=== PATIENT | female | born 1925 | race Caucasian/White ===

== ENCOUNTER 2016-06-13 17:50 | Observation (INO) | payer MEDICARE ==
--- NOTE | 2016-06-13 18:13 | ERPHSYRPT ---
- History of Present Illness Historian: EMS, [facility] records Patient Subjective Stated Complaint: NH AND EMS REPORT PATIENT HAVING LOWER ABD PAIN FOR TWO DAYS. ALSO HAVING INCREASED CONFUSION. Triage Nursing Assessment: TO ROOM PER EMS COT. SKIN W/D, COLOR NORMAL, RESP NONLABORED. MOIST COUGH NOTED. ABD SOFT, TENDER IN LOWER ABD. NORMAL BOWEL SOUNDS. PATIENT ORIENTED ONLY TO NAME. Timing/Duration: day(s) (2) Activities at Onset: none Quality: aching Abdominal Pain Onset Location: RLQ, LLQ Pain Radiation: no radiation Severity of Pain-Max: mild Severity of Pain-Current: mild Modifying Factors: Improves With: nothing Associated Symptoms: denies symptoms Previous symptoms: no prior history Hx Tetanus, Diphtheria Vaccination/Date Given: No Hx Influenza Vaccination/Date Given: Yes (2015) Hx Pneumococcal Vaccination/Date Given: Yes (2015) Immunizations Up to Date: No <SYD BECERRA - Last Filed: 06/13/16 18:08> <CAROL PALACIOS - Last Filed: 06/13/16 22:32> - History of Present Illness Time Seen by Provider: 06/13/16 18:08 Physician History: The patient is an 89-year-old female brought in by ambulance from a [facility] where she said 2 days of lower abdominal pain. Patient is a poor historian. [facility] also complains that she is more confused than usual. The patient has been on Flagyl and Levaquin for 3 days for a GI infection and UTI. There is no vomiting or diarrhea at this time. (SYD BECERRA) Allergies/Adverse Reactions: erythromycin base [Erythromycin Base] Allergy (Unknown, Verified 06/13/16 18:06) hydrocodone [Hydrocodone] Allergy (Unknown, Verified 06/13/16 18:06) meperidine HCl [From Demerol] Allergy (Unknown, Verified 06/13/16 18:06) quinine Allergy (Verified 06/13/16 18:06) Home Medications: Furosemide 40 mg [Lasix 40 MG] 40 mg PO DAILY 07/09/12 [History] Potassium Chloride 10 Meq Tab* [Klor Con 10 MEQ] 10 meq PO DAILY 07/09/12 [ History] Esomeprazole Magnesium [Nexium] 40 mg PO DAILY 12/30/13 [History] Aspirin [Aspirin EC] 81 mg PO DAILY 01/25/14 [History] Pregabalin [Lyrica] 75 mg PO BID 01/25/14 [History] Cetirizine HCl [Zyrtec] 10 mg PO DAILY 06/07/16 [History] Levofloxacin [Levaquin] 500 mg PO 06/13/16 [History] Lorazepam 0.5 mg [Ativan 0.5 MG] 0.5 mg PO Q8HPRN PRN 06/13/16 [History] Metronidazole 500 mg [Flagyl 500 MG] 500 mg PO TID 06/13/16 [History] Omeprazole 20 MG [Prilosec 20 mg] 20 mg PO DAILY 06/13/16 [History] - Review of Systems Constitutional: No Fever, No Chills Eyes: No Symptoms Ears, Nose, & Throat: No Symptoms Respiratory: No Cough, No Dyspnea Cardiac: No Chest Pain, No Edema, No Syncope Abdominal/Gastrointestinal: Abdominal Pain Genitourinary Symptoms: No Dysuria Musculoskeletal: No Back Pain, No Neck Pain Skin: No Rash Neurological: No Dizziness, No Focal Weakness, No Sensory Changes Psychological: No Symptoms Endocrine: No Symptoms Hematologic/Lymphatic: No Symptoms Immunological/Allergic: No Symptoms All Other Systems: Reviewed and Negative <SYD BECERRA - Last Filed: 06/13/16 18:08> - Past Medical History Pertinent Past Medical History: Yes Neurological History: Peripheral Neuropathy ENT History: Cataracts Cardiac History: Congestive Heart Failure, Coronary Artery Disease, Hypertension Respiratory History: CHF, COPD, Pneumonia Endocrine Medical History: No Pertinent History Musculoskeletal History: Osteoarthritis GI Medical History: Hemorrhoids, Hernia History: No Pertinent History Psycho-Social History: Anxiety, Depression Female Reproductive Disorders: No Pertinent History Other Medical History: PELVIC AND NECK FRACTURE - Past Surgical History Past Surgical History: Yes Neuro Surgical History: No Pertinent History Cardiac: No Pertinent History Respiratory: No Pertinent History Gastrointestinal: Cholecystectomy, Hernia Repair Genitourinary: No Pertinent History Musculoskeletal: Joint Replacement, Orthopedic Surgery Female Surgical History: No Pertinent History - Social History Smoking Status: Former smoker Exposure to second hand smoke: No Drug Use: none Patient Lives Alone: No - Female History Hx Now: No <SYD BECERRA - Last Filed: 06/13/16 18:08> - Physical Exam General Appearance: no apparent distress, alert Eye Exam: PERRL/EOMI, eyes nml inspection Ears, Nose, Throat Exam: normal ENT inspection, pharynx normal, moist mucous membranes Neck Exam: normal inspection, non-tender, supple, full range of motion Respiratory Exam: normal breath sounds, lungs clear, No respiratory distress Cardiovascular Exam: regular rate/rhythm, normal heart sounds Gastrointestinal/Abdomen Exam: tenderness (RLQ and LLQ) Pelvic Exam: not done Rectal Exam: not done Back Exam: normal inspection, normal range of motion, No CVA tenderness, No vertebral tenderness Extremity Exam: normal inspection, normal range of motion, pelvis stable Neurologic Exam: confusion (mild) Skin Exam: normal color, warm, dry SpO2 Interpretation: normal SpO2: 96 Oxygen Delivery: Room Air <SYD BECERRA - Last Filed: 06/13/16 18:08> <SYD BECERRA - Last Filed: 06/13/16 18:08> - Progress Counseled pt/family regarding: lab results, diagnosis, need for follow-up, rad results <CAROL PALACIOS - Last Filed: 06/13/16 22:32> - Progress Progress Note: 06/13/16 21:10 CT abd/pelvis: [email or web address] 9:00 PM 06/13/2016: Compared to CT 7 days ago. Study markedly limited due to extreme motion artifact. Grossly stable HH, L renal cyst, & fecal stasis. 06/13/16 22:28 Pt was initially seen per Dr Becerra. She was admitted last week for abd pain, enteritis and bowel wall thickening, and acinetobacter UTI. She is on levaquin and flagyl. Was discharged to [place]. She now has some increased lower abdominal pain and some confusion.Pt is poor historian. Atypical nonspecific symptoms. Will admit and continue levaquin and flagyl. Spoke to Dr Bran Ocampo. (CAROL PALACIOS) <SYD BECERRA - Last Filed: 06/13/16 18:08> - Departure Time of Disposition: 22:31 Departure Disposition: Observation Critical Care Time: No <CAROL PALACIOS - Last Filed: 06/13/16 22:32> - Departure Clinical Impression: Abdominal pain, Confusion Condition: Fair Referrals: ROSALIND JUAREZ MD [Primary Care Provider] -
[2016-06-13 18:32] LABS: Mean Cell Volume 80.7 fl (78-100); Mean Platelet Volume 11.9 fl (6-9.5); Platelet Count 175 K/mm3 (150-450); Red Blood Count 5.55 M/mm3 (4.1-5.4); Red Cell Distribution Width 17.6 % (11.5-14.0); White Blood Count 11.3 K/mm3 (4.0-10.5)
[2016-06-13 18:37] LABS: Mean Corpuscular Hemoglobin 25.7 pg (26-32)
[2016-06-13 19:13] LABS: ALBUMIN 2.9 g/dL (3.4-5.0); ALKALINE PHOSPHATASE 60 U/L (46-116); ANION GAP 11.3 MEQ/L (5-15); BILIRUBIN,TOTAL 0.7 mg/dL (0.2-1.0); BLOOD UREA NITROGEN 15 mg/dL (9-20); CHLORIDE 106 mEq/L (98-107); Carbon Dioxide 28.1 mEq/L (21-32); Glucose 108 MG/DL (70-110); LIPASE 61 U/L (73-393); SGOT/AST 15 U/L (15-37); SGPT/ALT 13 U/L (12-78); SODIUM 141 mEq/L (136-145); Total Protein 5.8 gm/dL (6.4-8.2)
[2016-06-13 19:27] LABS: Platelet Estimate NORMAL (NORMAL); Total Cells Counted 100
[2016-06-13 19:34] LABS: Bacteria RARE /HPF (NEGATIVE); COMPLETE URINE MICROSCOPIC? YES; Collection Type CCMS; WBC 0-2 /HPF (0-5)
[2016-06-13] MEDS ORDERED: Ativan 2 MG/1 ML VIAL IV ONE (20:59)
[2016-06-13] MEDS ORDERED: Ativan 2 MG/1 ML VIAL ONE (21:02)
[2016-06-14] MEDS: FLAGYL 500 MG IVPB 100 ML IV SCH ×5 (00:39→22:50)
--- NOTE | 2016-06-14 08:31 | XRAY ---
Indication: Short of breath. Comparison: June 07, 2016 Portable chest unchanged again hyperinflated with calcified granulomas and blunting of both costophrenic angles. No focal infiltrate, consolidation, or large effusion. Heart is not enlarged. No new/acute findings.
--- NOTE | 2016-06-14 08:37 | XRAY ---
Indication: Lower abdominal pain and confusion. Multiple contiguous axial images obtained through the abdomen and pelvis using 80 cc Isovue 370 contrast. Comparison: June 07, 2016. Study is markedly degraded by motion and respiration artifact. Grossly stable hiatal hernia, fecal stasis without obstruction, left renal cyst, epigastric postsurgical changes, previous cholecystectomy, and previous left total hip arthroplasty. No large free fluid/air. Remaining visualized liver, pancreas, spleen, adrenal glands, kidneys and bladder appear unremarkable. Stable aortoiliac calcifications without AAA. Osseous structures again demonstrates osteopenia, multilevel degenerative spondylosis, levorotoscoliosis, and old inferior pubic bone fractures. Impression: Limited exam due to motion/respiration artifact. Stable hiatal hernia, fecal stasis, and left renal cyst. CTDI 16.66
[2016-06-14] MEDS: Pepcid 20 MG VIAL IV SCH ×2 (08:51→22:00)
[2016-06-14] MEDS ORDERED: D5W IV SCH (10:00)
[2016-06-14] MEDS ORDERED: LEVAQUIN 750 MG/150 ML IV SCH (10:00)
[2016-06-14] MEDS ORDERED: Ativan 0.5 MG PO PRN (10:50)
[2016-06-14] MEDS ORDERED: TYLENOL 325 MG PO PRN (10:52)
[2016-06-14] MEDS ORDERED: Protonix 40MG Tablet PO SCH (11:00)
[2016-06-14] MEDS ORDERED: Klor Con 10 MEQ PO SCH (11:00)
[2016-06-14] MEDS ORDERED: CLARITIN 10 MG PO SCH (11:00)
[2016-06-14] MEDS ORDERED: Ativan 2 MG/1 ML VIAL IV PRN (11:29)
[2016-06-14] MEDS: Lyrica 25 MG PO SCH ×2 (13:07→22:38)
[2016-06-14] MEDS: Lyrica 50MG PO SCH ×2 (13:07→22:38)
[2016-06-14] MEDS: ECOTRIN 81 MG PO SCH (13:08)
[2016-06-14] MEDS: Lasix 40 MG PO SCH (13:08)
[2016-06-14] MEDS ORDERED: Ativan 2 MG/1 ML VIAL IM ONE (19:11)
[2016-06-14] MEDS ORDERED: Sodium Chloride 0.9% 1000 ML 1,000 ML IV SCH (19:45)
[2016-06-14] MEDS ORDERED: PROTONIX 40 MG IV IV SCH (19:45)
[2016-06-14] MEDS ORDERED: NON-FORMULARY ITEM (Pregabalin [Lyrica] 75 MG) PO SCH (22:00)
[2016-06-14 22:04] LABS: Mean Cell Volume 80.8 fl (78-100); Mean Corpuscular Hemoglobin 25.8 pg (26-32); Mean Platelet Volume 11.9 fl (6-9.5); Platelet Count 155 K/mm3 (150-450); Red Cell Distribution Width 16.8 % (11.5-14.0); White Blood Count 12.4 K/mm3 (4.0-10.5)
[2016-06-14 22:05] LABS: A-aADO2 40; ARTERIAL BLD GAS O2 SATURATION 96.1 % (95-100); ARTERIAL BLOOD GAS FIO2 21 %; ARTERIAL BLOOD GAS PO2 63 mmHg (75-100); ARTERIAL BLOOD GAS pH 7.48 (7.35-7.45)
[2016-06-14 22:35] LABS: ALBUMIN 2.8 g/dL (3.4-5.0); ALKALINE PHOSPHATASE 57 U/L (46-116); ANION GAP 11.4 MEQ/L (5-15); BILIRUBIN,TOTAL 0.6 mg/dL (0.2-1.0); BLOOD UREA NITROGEN 13 mg/dL (9-20); CHLORIDE 107 mEq/L (98-107); Carbon Dioxide 27.2 mEq/L (21-32); Glucose 119 MG/DL (70-110); MAGNESIUM 2.2 mg/dL (1.8-2.4); Potassium 3.4 mEq/L (3.5-5.1); SGOT/AST 11 U/L (15-37); SGPT/ALT 11 U/L (12-78); SODIUM 142 mEq/L (136-145); Total Protein 5.6 gm/dL (6.4-8.2)
[2016-06-15 00:57] LABS: ALLEN TEST OK? YES
[2016-06-15] MEDS ORDERED: Flagyl 500 MG ONE (05:37)
[2016-06-15] MEDS ORDERED: Flagyl 500 MG PO SCH ×2 (06:00)
[2016-06-15] MEDS: Lasix 40 MG PO SCH ×2 (09:00→09:24)
[2016-06-15] MEDS: ECOTRIN 81 MG PO SCH ×2 (09:01→09:24)
[2016-06-15] MEDS: Lyrica 25 MG PO SCH ×3 (09:01→21:46)
[2016-06-15] MEDS: Levaquin 500 MG Tablet PO SCH ×2 (09:01→09:24)
[2016-06-15] MEDS: Lyrica 50MG PO SCH ×3 (09:01→21:46)
[2016-06-15] MEDS: Pepcid 20 MG PO SCH ×3 (09:01→21:46)
[2016-06-15] MEDS ORDERED: NON-FORMULARY ITEM (Cetirizine Hcl [Zyrtec] 10 MG) PO SCH (10:00)
[2016-06-15] MEDS ORDERED: NON-FORMULARY ITEM (Omeprazole 20 Mg [Prilosec 20 Mg] 20 MG) PO SCH (10:00)
[2016-06-15] MEDS: Flagyl 500 MG PO SCH ×2 (11:14→11:34)
[2016-06-15] MEDS ORDERED: Ativan 2 MG/1 ML VIAL IM PRN (17:18)
[2016-06-15] MEDS ORDERED: Ativan 2 MG/1 ML VIAL IM ONE (17:18)
[2016-06-15] MEDS ORDERED: Catapres-TTS 1 PATCH TOP SCH (17:30)
[2016-06-15] MEDS ORDERED: D5W IV SCH (18:00)
[2016-06-15] MEDS ORDERED: LEVAQUIN 750 MG/150 ML IV SCH (18:00)
[2016-06-15] MEDS ORDERED: VASOTEC I.V. 2.5 MG IV PRN (20:54)
[2016-06-15] MEDS ORDERED: Ativan 2 MG/1 ML VIAL IV PRN (20:56)
[2016-06-15] MEDS: FLAGYL 500 MG IVPB 100 ML IV SCH (23:23)
[2016-06-16] MEDS: FLAGYL 500 MG IVPB 100 ML IV SCH ×2 (05:52→13:10)
[2016-06-16] MEDS ORDERED: Ativan 2 MG/1 ML VIAL IV PRN (06:32)
[2016-06-16] MEDS ORDERED: VASOTEC I.V. 2.5 MG IV ONE (06:35)
[2016-06-16] MEDS ORDERED: SYNTHROID 25 MCG PO SCH (10:00)
[2016-06-16] MEDS: Lasix 40 MG PO SCH (10:16)
[2016-06-16] MEDS: Lyrica 25 MG PO SCH (10:16)
[2016-06-16] MEDS: Lyrica 50MG PO SCH (10:17)
[2016-06-16] MEDS: ECOTRIN 81 MG PO SCH (10:17)
[2016-06-16] MEDS: Pepcid 20 MG PO SCH (10:17)
--- NOTE | 2016-06-16 10:25 | XRAY ---
Indication: Confusion. Multiple contiguous axial images obtained through the head without contrast. Comparison: None Age-appropriate global atrophy and moderate/advanced periventricular degenerative micro-ischemia bilaterally. No acute intracranial hemorrhage, abnormal extra-axial fluid collection, or mass effect. Fourth ventricle is midline without hydrocephalus. Bony calvarium intact. There is moderate mucosal thickening of both ethmoid and both maxillary sinuses with complete frontal sinus opacification. Also partial opacification of the inferior mastoid air cells bilaterally. Impression: 1. Nonacute senile brain. 2. Incidental pansinusitis. Partial opacification of the mastoid air cells also presumed inflammatory. CT DI is 61.05
--- NOTE | 2016-06-16 10:26 | HP ---
HISTORY OF PRESENT ILLNESS: The history has been gathered from review of patient's chart and discussion with the patient's daughter. The patient is a poor historian. Ana Bean is an 89 year old woman with past medical history of hypertension, congestive heart failure, chronic obstructive pulmonary disease, anxiety, depression, peripheral neuropathy. She was recently admitted for abdominal pain and was diagnosed to have enteritis, Acinetobacter urinary tract infection. Subsequently she improved clinically and was discharged back to residential. Over there she was continued antibiotics. She reportedly had some confusion/agitation at this residential. She was placed on PRN Ativan. As per patient's daughter she had been refusing her medications there at times. She was brought to the emergency room last night with increasing confusion and lower abdominal pain for the past two days. The patient was noted to be tender in the lower abdomen area and was oriented to only name. After initial work up and treatment in the emergency room, she was admitted to medical floor for further monitoring and management. Her course was essentially unremarkable until this morning. I was contacted by the patient's nurse this morning stating that the patient is extremely agitated and refusing her medicines. The patient was treated with Ativan with some improvement. At the time of this evaluation earlier this evening the patient was alert, awake, confused but cooperative. Denied pain. The patient's daughter was present in the room. PAST MEDICAL HISTORY: As noted above. PAST SURGICAL HISTORY: Pelvic and neck fracture. Cholecystectomy. Hernia repair. ALLERGIES: ERYTHROMYCIN, HYDROCODONE, MEPERIDINE, QUININE. MEDICATIONS: Current medications were reviewed. FAMILY HISTORY: Noncontributory. SOCIAL HISTORY: The patient is a former smoker. The patient lives at a residential. REVIEW OF SYSTEMS: Somewhat limited due to the patient's confusion. However the patient has been getting increasingly confused, has reported lower abdominal pain prior to admission. She has not been eating or drinking well. Has been refusing medicines. History of agitation during last few days. Denies increased shortness of breath. As per patient's daughter the patient has deteriorated, ambulating independently with walker to not moving at all. Also the patient has been getting increasingly weaker. PHYSICAL EXAMINATION: An elderly woman sitting comfortable in chair not in acute distress. VITAL SIGNS: Blood pressure 182/88, heart rate 100, respiratory rate 20, temperature 99.6F. Oxygen saturation 96% on 2 liters. HEENT: No pallor or icterus is noted. NECK: No JVD is present. CVS: S1, S2 present. RESPIRATORY: Breath sounds are bilaterally diminished. ABDOMEN: Obese, soft, nontender. NEURO: She is alert, awake, appeared confused, answered a few simple questions. EXTREMITIES: No edema on bilateral lower extremities. LABORATORY DATA AND TESTS: Labs from yesterday showed CBC with white blood cell of 11.3 otherwise unremarkable. CMP unremarkable. Lipase was 61. UA showed trace electrolytes, 0-2 red blood cells, 0-2 white blood cell, rare bacteria. Chest x-ray from yesterday showed hyperinflated chest with calcified granulomas and blunting of both costophrenic angles. No focal infiltrate, consolidation or large effusion. No new/acute findings. CT scan of abdomen and pelvis was limited exam due to motion artifact but did show stable hiatal hernia, fecal stasis and left renal cyst. ASSESSMENT: An 89 year old woman with impression: 1) Lower abdominal pain with recent history of enteritis. 2) Encephalopathy. 3) Generalized weakness. 4) Recent history of Acinetobacter urinary tract infection. 5) History of hypertension/congestive heart failure. 6) Anxiety/depression. 7) History of chronic obstructive pulmonary disease. PLAN: The patient was admitted for further monitoring and management. Will continue p.o. antibiotics, also given that the patient has been refusing her medicines will change those to p.o. as I am unsure how many antibiotic doses the patient actually received while she was at the residential due recent stay there as well. Continue to follow CBC and electrolytes. Will get baseline head CT. Will get ABG and BMP. Fall precautions. The patient's clinical condition, work up results available at this time and plan of management was discussed at length by me with the patient's daughter. She seems to be in understanding and agreement.
--- NOTE | 2016-06-16 12:51 | PROG NOTE ---
DATE: 06/15/2016 Chart is reviewed and events noted. As per patient's nurse, she has made multiple attempts to obtain IV but were unsuccessful. The patient is getting paranoid and is refusing all of her medications. She was only able to receive one dose of p.o. Flagyl today. Also she has had periods of complete confusion and agitation. At the time of this evaluation, she is alert, awake, and comfortable. PHYSICAL EXAMINATION: VITAL SIGNS: Blood pressure 204/92, heart rate 114, respiratory rate 20, temperature 98.3F. Oxygen saturation 95%. HEENT: Pallor is present. NECK: No JVD is present. CVS: S1, S2 present. RESPIRATORY: Breath sounds are bilaterally diminished. ABDOMEN: Obese, soft, nontender. NEURO: She is alert, awake, confused. EXTREMITIES: No edema on bilateral lower extremities. LABORATORY DATA AND TESTS: Labs from yesterday were reviewed. Her CT could not be performed yesterday since the patient was extremely irritated and was biting. Medications were reviewed. ASSESSMENT: An 89 year old woman with impression: 1) Encephalopathy. 2) Urinary tract infection. 3) Recent enteritis. 4) Hypertension/congestive heart failure. 5) Anxiety. PLAN: I stressed with patient again that she does need to start taking her medications as directed to help her get better. However as noted earlier the patient is insistent that she is taking medications at this time. As per nursing, the patient is paranoid about medications and has been refusing all of them. Will obtain psychiatric consultation tomorrow. Attempt was made to switch most of her medications to IV yesterday. However the patient's lost her IV and multiple attempts were unsuccessful. Will add Catapres patch. Continue PRN Ativan. Addition of Synthroid. The patient's clinical condition, work-up results and plan of management were discussed with the patient's daughter. She seems to be in understanding and agreement.
[2016-06-16 16:23] VITALS: BP 176/74; PULSE 99; O2SAT 97
--- NOTE | 2016-06-17 12:48 | DS ---
DISCHARGE DIAGNOSES: 1) ENCEPHALOPATHY. 2) URINARY TRACT INFECTION. 3) RECENT HISTORY OF ENTERITIS. 4) HYPERTENSION/CONGESTIVE HEART FAILURE. 5) ANXIETY. HOSPITAL COURSE: Ana Bean is an 89 year-old woman with past medical history of hypertension, congestive heart failure, chronic obstructive pulmonary disease, anxiety. She was recently admitted for abdominal pain and was diagnosed to have enteritis, urinary tract infection. Subsequently she improved clinically and was discharged back to skilled nursing earlier part of last week. Over there she was continued on antibiotics. She did have some agitation off and on for which she was treated accordingly. Also the patient has refused her medications at times. She was brought to the emergency room on 06/12/2016 night with increasing confusion, lower abdominal pain. Initial work up in the emergency room was notable for white blood cell count 11.3. CMP was unremarkable. Lipase 61. UA showed 0 to 2 white blood cells, rare bacteria. Chest x-ray showed hyperinflated chest with calcified granuloma and blunting of both costophrenic angles, with no focal infiltrates. CT scan of abdomen and pelvis was limited due to motion artifact but did show stable hiatal hernia, fecal stasis and left renal cyst. She was placed on IV fluids, antibiotics were continued. She was admitted to the medical floor for further monitoring and management. During her further course she became confused, more agitated. Eventually the patient lost her IV and multiple attempts were unsuccessful. Eventually the patient's medications were changed to IV however the patient's IV came out and initial attempts to obtain one was unsuccessful. She continued to refuse p.o. medications. . The patient was getting paranoid about her medications and was refusing them. Please refer to my note from 06/15/2016 for details. The patient did undergo CT scan of head on 06/14/2016 which was reported to have nonacute senile brain, incidental shin-sinusitis. She was treated with PRN Ativan/Haldol for her agitation. The patient did get paranoid and was refusing her medications yesterday. Plan was to obtain psychiatric consultation today. Eventually the patient had become more cooperative and did agree for peripheral line placement and was restarted back on IV medications. Further course essentially more or less unremarkable. At the time of my examination earlier today, the patient was drowsy but arousable, denies pain, appeared comfortable. PHYSICAL EXAMINATION: VITAL SIGNS: Blood pressure 176/74, heart rate 99, respiratory rate 18, temperature 97.6F. Oxygen saturation 97% on 3 liters. HEENT: Pallor is present. NECK: No JVD is present. CVS: S1, S2 present. RESPIRATORY: Breath sounds are bilaterally diminished. ABDOMEN: Soft, nontender. NEURO: She was drowsy but arousable, answers simple questions. EXTREMITIES: No edema on bilateral lower extremities. LABORATORY DATA AND TESTS: There were no new labs today. Labs from 06/14/2016 were notable for ABG with pH 7.4, pCO2 37, pO2 63. CBC was notable for white blood cell 12.4. CMP notable for potassium 3.4 otherwise unremarkable. TSH 4.099. Medications were reviewed. ASSESSMENT: As outlined in discharge diagnosis. PLAN: The patient was admitted with increasing confusion, was noted to be more agitated during her stay requiring treatment. Also she did have lower abdominal pain for which she has continued on treatment with broad spectrum antibiotics although the patient did not have her IV in, she did refuse doses due to her paranoia. She was noted to have elevated blood pressure reading. Additional antihypertensive medications were added. She otherwise remained clinically stable. Initial plan was to obtain psychiatric consultation today due to the patient's behavioral changes as well as her paranoia. However I was informed by mattress spring encaser earlier today that the patient states has been denied by her insurance effective yesterday evening and the patient does need to be discharged to skilled nursing ASAP. Also it was discussed with family regarding possibility of placing the patient in a geriatric psychiatric unit however the patient's family had declined and they wished the patient to be transferred back to the same skilled nursing. After my evaluation today the patient was discharged back to [facility] in stable condition. Please refer to discharge medication list from 06/16/2016 for details of medications on discharge. Essentially the patient's antibiotics will be continued for an additional seven days. She will be continued on Synthroid in addition to change blood pressure medications as noted. Prescription for PRN Ativan as needed was written out prior to her discharge that will be given for increased agitation. I have advised the skilled nursing to contact me OUMOU if any questions or concerns arise. I advised them to send the patient back to the emergency room if any new signs and symptoms or reappearance of previous signs and symptoms are noted. The patient's clinical condition, work-up results and plan of management were discussed at length with patient's family (niece). They seem to be in understanding and agreement. Please refer to patient's chart, labs, diagnostic work up results and consult notes for details. Please refer to discharge medication list from 06/16/2016 for details of medications on discharge. Plan was discussed with patient's nurse and also with mattress spring encaser, Aissatou.
[2016-06-18] MEDS ORDERED: LEVAQUIN 750 MG/150 ML IV SCH (18:00)
[2016-06-18] MEDS ORDERED: D5W IV SCH (18:00)
== END 2016-06-16 18:30 | disposition home or self-care (01) ==
LOC: ED 17:50 → MED SURG 22:47
PROVIDERS: ADMIT General Practice; ATTEND General Practice
DX: G93.40 Encephalopathy, unspecified (principal); N39.0 Urinary tract infection, site not specified; I11.0 Hypertensive heart disease with heart failure; I50.9 Heart failure, unspecified; F41.8 Other specified anxiety disorders; K52.9 Noninfective gastroenteritis and colitis, unspecified; J44.9 Chronic obstructive pulmonary disease, unspecified; J32.4 Chronic pansinusitis; R45.1 Restlessness and agitation; G62.9 Polyneuropathy, unspecified
CPT/HCPCS: 36000; 36415; 36600; 70450; 71010; 74177; 80053; 81000; 82375; 82803; 83605; 83690; 83735; 83880; 84443; 85025; 85027; 94760; 94762; 94770; 96374; 99284; G0378; J1956; J2060; P9612

== ENCOUNTER 2016-06-17 08:24 | Inpatient (IN) | payer MEDICARE ==
--- NOTE | 2016-06-17 08:52 | ERPHSYRPT ---
- History of Present Illness Time Seen by Provider: 06/17/16 08:38 Source: EMS, long-term records Exam Limitations: clinical condition Patient Subjective Stated Complaint: PT BROUGHT TO ED PER EMS FROM [facility] PT FELL OUT OF WHEELCHAIR THIS AM-REPORTS PT GROANS WITH TOUCH TO THE RIGHT SIDE -PT UNABLE TO COMMUNICATE Triage Nursing Assessment: PT PALE WARM ET DRY-NO OBVIOUS DEFROMITY-OLD BRUISING NOTED TO BILATERAL LEGS-EXTREMITY PINK WARM ET DRY Physician History: 89 year old female with advanced dementia presents to the ED by ambulance after a fall. She was released from the hospital yesterday, apparently had a recent enteritis illness and had been quite agitated and [facility]s [facility] This morning the nursing staff from [place] report that she threw herself in the floor out of her wheelchair and then screamed that her right leg was broken. There is concern for a possible fracture, there have apparently been multiple falls and behaviors related to her advanced dementia. The patient states she hurts all over on questioning and tells me that she is going to and for me to please help her. Otherwise she is unable to relay any history or confirm/refute the history relayed from [facility]. Allergies/Adverse Reactions: erythromycin base [Erythromycin Base] Allergy (Unknown, Verified 06/17/16 08:35) hydrocodone [Hydrocodone] Allergy (Unknown, Verified 06/17/16 08:35) meperidine HCl [From Demerol] Allergy (Unknown, Verified 06/17/16 08:35) quinine Allergy (Verified 06/17/16 08:35) Home Medications: Furosemide 40 mg [Lasix 40 MG] 40 mg PO DAILY 07/09/12 [History] Potassium Chloride 10 Meq Tab* [Klor Con 10 MEQ] 10 meq PO DAILY 07/09/12 [ History] Aspirin [Aspirin EC] 81 mg PO DAILY 01/25/14 [History] Pregabalin [Lyrica] 75 mg PO BID 01/25/14 [History] Cetirizine HCl [Zyrtec] 10 mg PO DAILY 06/07/16 [History] Acetaminophen 325 mg [Tylenol 325 mg] 650 mg PO Q4H PRN PRN 06/13/16 [ History] Levofloxacin [Levaquin] 500 mg PO DAILY 06/13/16 [History] Lorazepam 0.5 mg [Ativan 0.5 MG] 0.5 mg PO Q8HPRN PRN 06/13/16 [History] Metronidazole 500 mg [Flagyl 500 MG] 500 mg PO TID 06/13/16 [History] Omeprazole 20 MG [Prilosec 20 mg] 20 mg PO DAILY 06/13/16 [History] Hx Tetanus, Diphtheria Vaccination/Date Given: No Hx Influenza Vaccination/Date Given: Yes (2015) Hx Pneumococcal Vaccination/Date Given: Yes (2015) Immunizations Up to Date: Yes - Review of Systems All Other Systems: Unable due to dementia - Past Medical History Pertinent Past Medical History: Yes Neurological History: Peripheral Neuropathy ENT History: Cataracts Cardiac History: Congestive Heart Failure, Coronary Artery Disease, Hypertension Respiratory History: CHF, COPD, Pneumonia Endocrine Medical History: No Pertinent History Musculoskeletal History: Osteoarthritis GI Medical History: Hemorrhoids, Hernia History: No Pertinent History Psycho-Social History: Anxiety, Depression Female Reproductive Disorders: No Pertinent History Other Medical History: PELVIC AND NECK FRACTURE - Past Surgical History Past Surgical History: Yes Neuro Surgical History: No Pertinent History Cardiac: No Pertinent History Respiratory: No Pertinent History Gastrointestinal: Cholecystectomy, Hernia Repair Genitourinary: No Pertinent History Musculoskeletal: Joint Replacement, Orthopedic Surgery Female Surgical History: No Pertinent History - Social History Smoking Status: Former smoker Exposure to second hand smoke: No Drug Use: none Patient Lives Alone: No - Female History Hx Now: No - Nursing Vital Signs Nursing Vital Signs: Initial Vital Signs Temperature 98.2 F Temperature Source Axillary Pulse Rate 107 Respiratory Rate 16 Blood Pressure 186/80 Pain Intensity 0 - Physical Exam General Appearance: no apparent distress Eye Exam: PERRL/EOMI Ears, Nose, Throat Exam: moist mucous membranes Neck Exam: normal inspection Respiratory Exam: normal breath sounds, lungs clear, No respiratory distress Cardiovascular Exam: regular rate/rhythm, normal heart sounds, normal peripheral pulses Gastrointestinal/Abdomen Exam: soft, normal bowel sounds, No tenderness, No mass Extremity Exam: other (right foot slightly rotated outward, patient screams with pain upon any palpation or manipulation of her right lower extremity. she has multiple bruises in various stages to her bilateral lower extremities. her pelvis is stable) Neurologic Exam: alert, No oriented x 3, No cooperative Skin Exam: normal color SpO2 Interpretation: normal SpO2: 96 Oxygen Delivery: Room Air Ordered Tests: Active Orders 24 hr Category Date Time Status cath [Cath for Specimen-Straight] STAT Care 06/17/16 10:14 Active CHEST 1 VIEW (PORTABLE) Stat Exams 06/17/16 08:43 Completed FEMUR Stat Exams 06/17/16 08:43 Completed HEAD WITHOUT CONTRAST [CT] Stat Exams 06/17/16 08:45 Completed HIP UNI (2V) INCL PEL IF DONE Stat Exams 06/17/16 08:43 Completed LOWER LEG Stat Exams 06/17/16 08:44 Completed CBC W DIFF Stat Lab 06/17/16 09:54 Completed CMP Stat Lab 06/17/16 09:54 Completed CULTURE,URINE Stat Lab 06/17/16 10:47 Ordered MAG [MAGNESIUM] Stat Lab 06/17/16 10:47 Completed Manual Differential NC Stat Lab 06/17/16 09:54 Completed UA W/ MICROSCOPIC Stat Lab 06/17/16 10:15 Completed Medication Summary Generic Name Dose Route Start Last Admin Trade Name Stuart PRN Reason Stop Dose Admin Levofloxacin/Dextrose 100 mls @ 100 mls/hr 06/17/16 10:46 Levaquin 500mg/100ml D5w IV 06/17/16 11:45 STAT ONE Potassium Chloride 100 mls @ 50 mls/hr 06/17/16 11:00 Potassium Chloride 20 Meq In Water 100ml IV 06/17/16 14:59 Q2H [facility] Potassium Chloride/Sodium Chloride 1,000 mls @ 70 mls/hr 06/17/16 11:00 Sodium Chloride 0.9% W/ 20 Meq Kcl/Liter IV 07/17/16 10:59 .[id number] [facility] Lab/Rad Data: Laboratory Result Diagrams 06/17/16 09:54 06/17/16 09:54 Laboratory Results 06/17/16 06/17/16 06/17/16 Range/Units 10:47 10:15 09:54 WBC (4.0-10.5) K/mm3 RBC (4.1-5.4) M/mm3 Hgb (12.0-16.0) gm/dl Hct (35-47) % MCV (78-100) fl MCH (26-32) pg MCHC (32-36) g/dl RDW (11.5-14.0) % Plt Count (150-450) K/mm3 MPV (6-9.5) fl Segmented Neutrophils (36.0-66.0) % Lymphocytes (Manual) (24-44) % Monocytes (Manual) (0.0-12.0) % Basophils (Manual) (0.0-1.0) % Differential Comment Platelet Estimate (NORMAL) Sodium 135 L (136-145) mEq/L Potassium 2.9 L* (3.5-5.1) mEq/L Chloride 103 (98-107) mEq/L Carbon Dioxide 26.4 (21-32) mEq/L Anion Gap 9.3 (5-15) MEQ/L BUN 11 (9-20) mg/dL Creatinine 0.72 (0.55-1.30) mg/dl Estimated GFR > 60 ML/MIN Glucose 104 (70-110) MG/DL Calcium 8.5 (8.5-10.1) mg/dL Magnesium 1.9 (1.8-2.4) mg/dL Total Bilirubin 0.8 (0.2-1.0) mg/dL AST 19 (15-37) U/L ALT 12 (12-78) U/L Alkaline Phosphatase 65 (46-116) U/L Serum Total Protein 5.8 L (6.4-8.2) gm/dL Albumin 3.1 L (3.4-5.0) g/dL Ur Collection Type CATH Urine Color YELLOW (YELLOW) Urine Appearance CLEAR (CLEAR) Urine pH 6.0 (5-6) Ur Specific [place] >=1.030 (1.005-1.025) Urine Protein TRACE (Negative) Urine Glucose (UA) NEGATIVE (NEGATIVE) mg/dL Urine Ketones MODERATE-40 (NEGATIVE) Urine Nitrite POSITIVE (NEGATIVE) Urine Bilirubin NEGATIVE (NEGATIVE) Urine Urobilinogen 0.2 (0-1) mg/dL Urine WBC (Auto) TRACE (NEGATIVE) Urine RBC (Auto) 5-10 (0-5) Jonh/ul Urine Microscopic RBC 0-2 (0-2) /HPF Urine Microscopic WBC 2-5 (0-5) /HPF Ur Epithelial Cells FEW (FEW) /HPF Urine Bacteria FEW (NEGATIVE) /HPF Specimen Received 06/17/2016 1040 06/17/16 Range/Units 09:54 WBC 9.8 (4.0-10.5) K/mm3 RBC 5.18 (4.1-5.4) M/mm3 Hgb 13.2 (12.0-16.0) gm/dl Hct 41.7 (35-47) % MCV 80.5 (78-100) fl MCH 25.5 L (26-32) pg MCHC 31.7 L (32-36) g/dl RDW 17.3 H (11.5-14.0) % Plt Count 133 L (150-450) K/mm3 MPV 12.7 H (6-9.5) fl Segmented Neutrophils 85 H (36.0-66.0) % Lymphocytes (Manual) 6 L (24-44) % Monocytes (Manual) 7 (0.0-12.0) % Basophils (Manual) 2 H (0.0-1.0) % Differential Comment NORMAL Platelet Estimate DECREASED (NORMAL) Sodium (136-145) mEq/L Potassium (3.5-5.1) mEq/L Chloride (98-107) mEq/L Carbon Dioxide (21-32) mEq/L Anion Gap (5-15) MEQ/L BUN (9-20) mg/dL Creatinine (0.55-1.30) mg/dl Estimated GFR ML/MIN Glucose (70-110) MG/DL Calcium (8.5-10.1) mg/dL Magnesium (1.8-2.4) mg/dL Total Bilirubin (0.2-1.0) mg/dL AST (15-37) U/L ALT (12-78) U/L Alkaline Phosphatase (46-116) U/L Serum Total Protein (6.4-8.2) gm/dL Albumin (3.4-5.0) g/dL Ur Collection Type Urine Color (YELLOW) Urine Appearance (CLEAR) Urine pH (5-6) Ur Specific [place] (1.005-1.025) Urine Protein (Negative) Urine Glucose (UA) (NEGATIVE) mg/dL Urine Ketones (NEGATIVE) Urine Nitrite (NEGATIVE) Urine Bilirubin (NEGATIVE) Urine Urobilinogen (0-1) mg/dL Urine WBC (Auto) (NEGATIVE) Urine RBC (Auto) (0-5) Jonh/ul Urine Microscopic RBC (0-2) /HPF Urine Microscopic WBC (0-5) /HPF Ur Epithelial Cells (FEW) /HPF Urine Bacteria (NEGATIVE) /HPF Specimen Received - Progress Discussed with : Marciano Ocampo Will see patient in: hospital (full admit) - Departure Time of Disposition: 10:59 Departure Disposition: In-patient Admission Clinical Impression: UTI (urinary tract infection), Hypokalemia, Dementia, Fall Condition: Stable Critical Care Time: No
--- NOTE | 2016-06-17 09:51 | XRAY ---
Indication: Pain following fall. Comparison: None 2 views of the right hip demonstrates mild osteopenia and scattered vascular calcifications. No other bony, articular, or soft tissue abnormalities.
--- NOTE | 2016-06-17 09:53 | XRAY ---
Indication: Pain following fall. Comparison: None 2 views of the right femur demonstrates osteopenia, mild tricompartmental knee degenerative changes, and scattered vascular calcifications. No other bony, articular, or soft tissue abnormalities.
--- NOTE | 2016-06-17 09:54 | XRAY ---
Indication: Pain following fall. Comparison: June 13, 2016 AP chest again hyperinflated with chronic lung markings, calcified granulomas, and blunting of both costophrenic angles. No infiltrate, consolidation, large effusion, or pneumothorax. Heart is not enlarged for AP technique. Bony thorax intact again with osteopenia, degenerative changes, and old left humeral neck fracture. Impression: Stable nonacute chest again with chronic features.
--- NOTE | 2016-06-17 09:55 | XRAY ---
Indication: Pain following fall. Comparison: None 2 views of the right lower leg demonstrates osteopenia, mild tricompartmental knee degenerative changes, tiny heel spur, proximal pretibial soft tissue swelling, and scattered vascular calcifications. No other bony, articular, or soft tissue abnormalities.
--- NOTE | 2016-06-17 10:05 | XRAY ---
Indication: Fall. Confusion. Multiple contiguous axial images obtained through the head without contrast. Comparison: One day earlier. Stable global atrophy and moderate/advanced periventricular degenerative micro-ischemia bilaterally. No acute intracranial hemorrhage, abnormal extra-axial fluid collection, or mass effect. Fourth ventricle is midline without hydrocephalus. Bony calvarium intact. There remains moderate mucosal thickening of both ethmoid and both maxillary sinuses with complete frontal sinus opacification. Also partial opacification of the inferior mastoid air cells bilaterally. Impression: 1. Stable nonacute senile brain. 2. Stable pansinusitis and partial opacification of the mastoid air cells also presumed inflammatory. CT DI is 60.11
[2016-06-17 10:18] LABS: Mean Cell Volume 80.5 fl (78-100); Mean Corpuscular Hemoglobin 25.5 pg (26-32); Mean Platelet Volume 12.7 fl (6-9.5); Platelet Count 133 K/mm3 (150-450); Red Blood Count 5.18 M/mm3 (4.1-5.4); Red Cell Distribution Width 17.3 % (11.5-14.0); White Blood Count 9.8 K/mm3 (4.0-10.5)
[2016-06-17 10:28] LABS: ALBUMIN 3.1 g/dL (3.4-5.0); ALKALINE PHOSPHATASE 65 U/L (46-116); ANION GAP 9.3 MEQ/L (5-15); BILIRUBIN,TOTAL 0.8 mg/dL (0.2-1.0); BLOOD UREA NITROGEN 11 mg/dL (9-20); CHLORIDE 103 mEq/L (98-107); Carbon Dioxide 26.4 mEq/L (21-32); Glucose 104 MG/DL (70-110); SGOT/AST 19 U/L (15-37); SODIUM 135 mEq/L (136-145); Total Protein 5.8 gm/dL (6.4-8.2)
[2016-06-17 10:29] LABS: Potassium 2.9 mEq/L (3.5-5.1)
[2016-06-17 10:37] LABS: SGPT/ALT 12 U/L (12-78)
[2016-06-17 10:40] LABS: Collection Type CATH
[2016-06-17 10:41] LABS: COMPLETE URINE MICROSCOPIC? YES
[2016-06-17 10:42] LABS: Bacteria FEW /HPF (NEGATIVE); Epithelial Cells FEW /HPF (FEW)
[2016-06-17] MEDS ORDERED: Levaquin 500MG/100ML D5W 100 ML IV ONE (10:46)
[2016-06-17 10:48] LABS: Basophil 2 % (0.0-1.0); Platelet Estimate DECREASED (NORMAL); Total Cells Counted 100
[2016-06-17] MEDS ORDERED: POTASSIUM CHLORIDE 20 mEq IN WATER 100ML 100 ML IV SCH (11:00)
[2016-06-17] MEDS ORDERED: Sodium Chloride 0.9% W/ 20 mEq KCl/LITER 1,000 ML IV ONE (11:29)
[2016-06-17] MEDS ORDERED: POTASSIUM CHLORIDE 20 mEq IN WATER 100ML 100 ML IV ONE (11:29)
[2016-06-17] MEDS: Sodium Chloride 0.9% W/ 20 mEq KCl/LITER 1,000 ML IV SCH (11:30)
[2016-06-17] MEDS ORDERED: Zofran 4 MG/2 ML VIAL IV PRN (12:46)
[2016-06-17] MEDS ORDERED: MILK OF MAGNESIA 30 ML PO PRN (13:49)
[2016-06-17] MEDS ORDERED: Ativan 0.5 MG PO PRN ×2 (13:49→22:54)
--- NOTE | 2016-06-17 14:34 | HP ---
HISTORY OF PRESENT ILLNESS: The patient is a poor historian. The history has been gathered from review of patient's chart and discussion with patient's family. Ana Bean is an 89 year old woman with past medical history of hypertension, congestive heart failure, chronic obstructive pulmonary disease, anxiety/depression, recent history of behavior problems (likely due to dementia). She is a resident of [facility]. She was recently admitted for enteritis, urinary tract infection and was placed on antibiotic for the same and was discharged back to the [facility] last week. She was readmitted. The last two days she has been having confusion/agitation off and on. She was readmitted last weekend for the same and was continued on antibiotics. The patient frequently refuses her medications. Eventually she was discharged back to the [facility] in stable condition on 06/16/2016. I was contacted by [facility] this morning stating the patient had thrown herself out of her wheelchair and had complained of right leg pain. She was brought to the emergency room where she was noted to be alert, awake, unable to provide history. Upon initial evaluation in the emergency room, she was noted to have blood pressure 186/80, heart rate of 107, respiratory rate 16, temperature 98.2F. After work up she was treated with Levaquin 500 mg IV x1, KCL 20 mEq IV x1. Subsequently she was admitted to medical floor for further monitoring and management. At the time of this evaluation she is alert, awake, comfortable, answers yes or no type questions. Moans and groans when right lower extremity is touched. Denied increased shortness of breath. PAST MEDICAL HISTORY: As noted above. PAST SURGICAL HISTORY: Hernia. Pelvic and neck fracture. Cholecystectomy. Hernia repair. ALLERGIES: EYTHROMYCIN, HYDROCODONE, MEPERIDINE, QUININE. MEDICATIONS: Home medications were reviewed. FAMILY HISTORY: Noncontributory to current admission. SOCIAL HISTORY: The patient is a former smoker. No history of illicit drug use. REVIEW OF SYSTEMS: Limited due to patient's mental status. However history of right hip, right knee, right leg pain especially with movement. History of increased confusion and agitation the last two days. Also as per patient's niece, the patient has been getting increasingly weaker and the patient did not have any other injury except right lower extremity, head injury or loss of consciousness with a fall. PHYSICAL EXAMINATION: Elderly woman lying comfortably in bed, not in acute distress. VITAL SIGNS: Blood pressure 147/73, heart rate 108, respiratory rate 22, temperature 97.4F. Oxygen saturation 92% on room air. HEENT: Pallor is present. NECK: No JVD is present. CVS: S1, S2 present. RESPIRATORY: Breath sounds are bilaterally diminished clear to auscultation anteriorly. ABDOMEN: Obese, soft. NEURO: She is alert, awake, appears confused. Answers few yes or no type questions. EXTREMITIES: No edema on bilateral lower extremities. Tenderness to touch is present on the right hip, right knee and painful range of motion. Right knee reveals irregular ecchymosis on anterior aspect, local mild swelling is present also tenderness to touch and painful range of motion is present. Mild tenderness to touch on right nicholson (lower part). LABORATORY DATA AND TESTS: Labs from today had shown CBC with PLT 133,000. CMP notable for potassium 2.9. UA showed few epithelial cells, few bacteria, 2-5 white blood cells, 0-2 red blood cells, positive nitrite. Head CT from today shows stable nonacute senile brain. Right hip, right knee and right tibia/fibula x-ray showed no acute abnormalities. Chest x-ray showed stable nonacute chest with chronic features. ASSESSMENT: An 89 year old woman with impression: 1) GENERALIZED WEAKNESS: 2) CONTUSION (RIGHT HIP, RIGHT KNEE, RIGHT LEG). 3) URINARY TRACT INFECTION. 4) HYPOKALEMIA. 5) HYPERTENSION/CONGESTIVE HEART FAILURE. 6) ANXIETY/DEPRESSION. 7) CONFUSION. PLAN: The patient is admitted for further monitoring and management. Continue fall precautions. The patient was placed on antibiotics. Also potassium was replaced. Continue to follow CBC and electrolytes. I discussed with environmental emergencies planner regarding likely need for placement at a geriatric psychiatric facility. The patient's clinical condition, work up results and plan of management regarding also discharge plan was discussed with the patient's niece. She verbalized her understanding and agreement.
[2016-06-17] MEDS: TYLENOL 325 MG PO PRN (15:41)
[2016-06-17] MEDS ORDERED: NON-FORMULARY ITEM (Pregabalin [Lyrica] 75 MG) PO SCH (22:00)
[2016-06-17] MEDS: Aricept 10 MG PO SCH (22:23)
[2016-06-17] MEDS: Lyrica 50MG PO SCH (22:23)
[2016-06-17] MEDS: Lyrica 25 MG PO SCH (22:23)
[2016-06-17] MEDS ORDERED: Ativan 2 MG/1 ML VIAL IV PRN (22:52)
[2016-06-17] MEDS ORDERED: VASOTEC I.V. 2.5 MG IV SCH (23:00)
[2016-06-17] MEDS ORDERED: Catapres-TTS 1 PATCH TOP SCH (23:00)
[2016-06-17] MEDS: VASOTEC I.V. 2.5 MG IV PRN (23:29)
[2016-06-18] MEDS: Sodium Chloride 0.9% W/ 20 mEq KCl/LITER 1,000 ML IV SCH ×2 (01:30→16:40)
[2016-06-18 06:21] LABS: BASOPHIL % 0.1 % (0.0-0.4); Eosinophil % 2.6 % (0.00-5.0); Granulocytes % 80.9 % (36.0-66.0); Lymphocytes % 8.5 % (24.0-44.0); Mean Cell Volume 81.1 fl (78-100); Mean Platelet Volume 12.2 fl (6-9.5); Monocytes % 7.9 % (0.0-12.0); Platelet Count 129 K/mm3 (150-450); Red Blood Count 4.56 M/mm3 (4.1-5.4); Red Cell Distribution Width 17.3 % (11.5-14.0); White Blood Count 7.3 K/mm3 (4.0-10.5)
[2016-06-18] MEDS: VASOTEC I.V. 2.5 MG IV PRN ×3 (06:22→23:47)
[2016-06-18 06:32] LABS: BLOOD UREA NITROGEN 9 mg/dL (9-20); CHLORIDE 111 mEq/L (98-107); Carbon Dioxide 22.3 mEq/L (21-32); Glucose 71 MG/DL (70-110); Potassium 3.4 mEq/L (3.5-5.1); SODIUM 143 mEq/L (136-145)
[2016-06-18 06:43] LABS: Mean Corpuscular Hemoglobin 25.6 pg (26-32)
[2016-06-18] MEDS: Lyrica 25 MG PO SCH ×2 (08:42→22:16)
[2016-06-18] MEDS: SYNTHROID 25 MCG PO SCH (08:42)
[2016-06-18] MEDS: ECOTRIN 81 MG PO SCH (08:42)
[2016-06-18] MEDS: Lasix 40 MG PO SCH (08:42)
[2016-06-18] MEDS: CLARITIN 10 MG PO SCH (08:42)
[2016-06-18] MEDS: Klor Con 10 MEQ PO SCH (08:42)
[2016-06-18] MEDS: Lyrica 50MG PO SCH ×2 (08:43→22:16)
[2016-06-18] MEDS: Protonix 40MG Tablet PO SCH (08:43)
[2016-06-18] MEDS ORDERED: NON-FORMULARY ITEM (Omeprazole 20 Mg [Prilosec 20 Mg] 20 MG) PO SCH (10:00)
[2016-06-18] MEDS ORDERED: NON-FORMULARY ITEM (Cetirizine Hcl [Zyrtec] 10 MG) PO SCH (10:00)
[2016-06-18] MEDS ORDERED: NON-FORMULARY ITEM (Esomeprazole Magnesium [Nexium] 40 MG) PO SCH (10:00)
[2016-06-18] MEDS: Levaquin 500MG/100ML D5W 100 ML IV SCH (10:24)
[2016-06-18] MEDS: TYLENOL 325 MG PO PRN ×2 (11:48→22:16)
[2016-06-18] MEDS: Zestril 5 MG PO SCH (13:34)
--- NOTE | 2016-06-18 13:53 | PROG NOTE ---
DATE: 06/18/2016 Chart is reviewed and events noted. At the time of this evaluation the patient is alert, awake, mildly confused, states she thinks that her family does not know where she is at. Denies pain. Denies increased shortness of breath. Appears comfortable. PHYSICAL EXAMINATION: VITAL SIGNS: Blood pressure 166/90, heart rate 86, respiratory rate 17, temperature 97.8F. Oxygen saturation 98% on room air. HEENT: Pallor is present. No icterus is noted. NECK: No JVD is present. CVS: S1, S2 present. RESPIRATORY: Breath sounds are bilaterally diminished, clear to auscultation anteriorly. ABDOMEN: Obese, soft, nontender. NEURO: She is alert, awake, mildly confused but cooperative. EXTREMITIES: No edema on bilateral lower extremities. LABORATORY DATA AND TESTS: Labs from today show CBC with white blood cell count 7.3, hemoglobin 11.7, hematocrit 37, PLT 129,000. BMP shows potassium 3.4, chloride 111, BUN 9, creatinine 0.55. Medications were reviewed. ASSESSMENT: An 89 year old woman with impression: 1) Generalized weakness. 2) Contusion, right hip, right knee, right leg. 3) Urinary tract infection. 4) Confusion likely secondary to dementia. 5) Hypertension/congestive heart failure. 6) Anxiety/depression. PLAN: Aricept was added and will continue that. Continue broad spectrum IV antibiotics. Replacement of potassium. Discharge planning. Telemetry. Surgery consultation was noted. The patient's clinical condition, work-up results and plan of management were discussed with the patient's family and also discussed with senior case manager. They seem to be in understanding and agreement. Also discussed with senior case manager, Aissatou.
[2016-06-18] MEDS ORDERED: Levaquin 500MG/100ML D5W 100 ML IV SCH (14:15)
[2016-06-18] MEDS: Aricept 10 MG PO SCH (22:16)
[2016-06-19] MEDS: Sodium Chloride 0.9% W/ 20 mEq KCl/LITER 1,000 ML IV SCH (06:38)
[2016-06-19] MEDS: Lyrica 50MG PO SCH (09:40)
[2016-06-19] MEDS: Levaquin 500MG/100ML D5W 100 ML IV SCH (09:40)
[2016-06-19] MEDS: Lasix 40 MG PO SCH (09:40)
[2016-06-19] MEDS: Klor Con 10 MEQ PO SCH (09:40)
[2016-06-19] MEDS: Zestril 5 MG PO SCH (09:40)
[2016-06-19] MEDS: Protonix 40MG Tablet PO SCH (09:41)
[2016-06-19] MEDS: SYNTHROID 25 MCG PO SCH (09:41)
[2016-06-19] MEDS: CLARITIN 10 MG PO SCH (09:41)
[2016-06-19] MEDS: Lyrica 25 MG PO SCH (09:41)
[2016-06-19] MEDS: ECOTRIN 81 MG PO SCH (09:41)
[2016-06-19 11:47] VITALS: BP 156/76; PULSE 104; O2SAT 93
--- NOTE | 2016-06-24 12:25 | DS ---
DISCHARGE DIAGNOSES: 1) GENERALIZED WEAKNESS, IMPROVED. 2) URINARY TRACT INFECTION. 3) CONTUSION RIGHT HIP, RIGHT KNEE, RIGHT LEG. 4) CONFUSION, LIKELY SECONDARY TO DEMENTIA. 5) HYPERTENSION/CONGESTIVE HEART FAILURE. 6) ANXIETY/DEPRESSION. HOSPITAL COURSE: Ana Bean is an 89 year-old woman with past medical history of hypertension, congestive heart failure, anxiety, depression, and prior history of confusion and chronic obstructive pulmonary disease. She is a resident of [facility]. She was initially admitted for enteritis and urinary tract infection. She was placed on antibiotics and was discharged back to [facility]. Eventually she was readmitted with increasing confusion, agitation off and on. She was restarted on antibiotic. The patient frequently refused her medications. Eventually she improved clinically and was discharged back to [facility] in stable condition on 06/16/2016. The patient was readmitted on 06/17/2016 after [facility] had contacted me stating that the patient had thrown herself out of her wheelchair and had complained of right leg pain. Upon presentation to the emergency room the patient was noted to be alert, awake but unable to provide history. The patient did report some right hip pain. Work up done at the time of current admission had shown potassium of 2.9. UA with presence of few bacteria, 2 to 5 white blood cells, positive nitrite. Head CT showed stable nonacute senile changes. Right hip, right knee, right tibia/fibula x-rays had shown no acute abnormality. Chest x-ray showed nonacute chest. She was placed on treatment with broad spectrum IV hydration, antibiotic, potassium was replaced. I discussed with master planner given the patient's mental status changes regarding possible admission to geriatric psych facility, this was addressed during prior admission as well. However the patient's family had requested that the patient return back to [facility] due to her being familiar with that nursing facility. During her further course she was continued on antibiotics. Also empirically she was placed on Aricept. Follow up labs had revealed normal white blood cell count, mild drop in hemoglobin/hematocrit, improvement of her potassium. Normal renal function. Urine culture grew mixed fluoro. During her further course she improved clinically. She remained somewhat confused. She did agree with taking home medications. It was again discussed with family regarding since the patient's agitation had improved, as the family had requests the patient was discharged back to the [facility] in stable condition on 06/19/2016. Please refer to discharge medication list from 06/19/2016 for details. The patient will be admitted there under the care of Dr. Chawla. The patient will be continued on antibiotics. The patient's clinical condition, work-up results and plan of management including discharge plan as noted were discussed with patient's family (niece and other family members). They seem to be in understanding and agreement. Please refer to patient's chart, labs, diagnostic work up results and consult notes for details.
== END 2016-06-19 12:50 | DRG 690 ==
LOC: ED 08:24 → MED SURG 11:52
PROVIDERS: ADMIT General Practice; ATTEND General Practice
DX: N39.0 Urinary tract infection, site not specified (principal); R53.1 Weakness; S70.01XA Contusion of right hip, initial encounter; S80.01XA Contusion of right knee, initial encounter; S80.11XA Contusion of right lower leg, initial encounter; F03.90 Unspecified dementia, unspecified severity, without behavioral disturbance, psychotic disturbance, mood disturbance, and anxiety; I11.0 Hypertensive heart disease with heart failure; I50.9 Heart failure, unspecified; E87.6 Hypokalemia; F41.8 Other specified anxiety disorders; J44.9 Chronic obstructive pulmonary disease, unspecified; W05.0XXA Fall from non-moving wheelchair, initial encounter; Y92.129 Unspecified place in nursing home as the place of occurrence of the external cause
CPT/HCPCS: 36000; 36415; 70450; 71010; 73502; 73552; 73590; 80048; 80053; 81000; 83735; 83880; 84132; 85025; 87086; 90791; 96360; 96365; 99284; J1956; J2060; J3480; P9612; Q3014

== ENCOUNTER 2016-06-23 01:46 | Emergency (ER) | payer MEDICARE ==
--- NOTE | 2016-06-23 02:14 | ERPHSYRPT ---
- History of Present Illness Time Seen by Provider: 06/23/16 02:09 Historian: patient, EMS, fdc records, old records Exam Limitations: other ([facility] in [place]) Physician History: 89 year old female from [place] initially with CP and abd tenderness , and w/u begun , but later pt declined further IV and original IV failed as well with pt declining iv tx; some epigastric tenderness noted and CT again showing GI findings; see progress. Timing/Duration: day(s) Activities at Onset: none Quality: burning, pressure Location: substernal Chest Pain Radiation: arm Severity of Pain-Max: moderate Severity of Pain-Current: moderate Modifying Factors: Improves With: nothing Associated Symptoms: palpitations, shortness of breath Prior Chest Pain/Cardiac Workup: angina, recently seen/treated, recent hospitalization Nitro Today/Relief: provided by EMS, no relief Aspirin Treatment Today: 81 mg x 4 Allergies/Adverse Reactions: erythromycin base [Erythromycin Base] Allergy (Unknown, Verified 06/23/16 02:17) hydrocodone [Hydrocodone] Allergy (Unknown, Verified 06/23/16 02:17) meperidine HCl [From Demerol] Allergy (Unknown, Verified 06/23/16 02:17) quinine Allergy (Verified 06/23/16 02:17) Home Medications: Potassium Chloride 10 Meq Tab* [Klor Con 10 MEQ] 10 meq PO DAILY 07/09/12 [ History] Aspirin [Aspirin EC] 81 mg PO DAILY 01/25/14 [History] Pregabalin [Lyrica] 75 mg PO BID 01/25/14 [History] Cetirizine HCl [Zyrtec] 10 mg PO DAILY 06/07/16 [History] Acetaminophen 325 mg [Tylenol 325 mg] 650 mg PO Q4H PRN PRN 06/13/16 [ History] Lorazepam 0.5 mg [Ativan 0.5 MG] 0.5 mg PO Q8HPRN PRN 06/13/16 [History] Omeprazole 20 MG [Prilosec 20 mg] 20 mg PO DAILY 06/13/16 [History] Magnesium Hydroxide 30 ml [Milk of Magnesia 30 ml] 30 ml PO DAILY PRN 03/24 [History] Furosemide 40 mg [Lasix 40 MG] 20 mg PO DAILY 06/23/16 [History] Hx Tetanus, Diphtheria Vaccination/Date Given: No Hx Influenza Vaccination/Date Given: Yes (2015) Hx Pneumococcal Vaccination/Date Given: Yes (2015) - Review of Systems Constitutional: No Fever, No Chills Eyes: No Symptoms Ears, Nose, & Throat: No Symptoms Respiratory: No Cough, No Dyspnea Cardiac: Chest Pain, No Edema, No Syncope Abdominal/Gastrointestinal: No Abdominal Pain, No Nausea, No Vomiting, No Diarrhea Genitourinary Symptoms: No Dysuria Musculoskeletal: No Back Pain, No Neck Pain Skin: No Rash Neurological: No Dizziness, No Focal Weakness, No Sensory Changes Psychological: No Symptoms Endocrine: No Symptoms Hematologic/Lymphatic: No Symptoms Immunological/Allergic: No Symptoms All Other Systems: Reviewed and Negative - Past Medical History Pertinent Past Medical History: Yes Neurological History: Peripheral Neuropathy ENT History: Cataracts Cardiac History: Congestive Heart Failure, Coronary Artery Disease, Hypertension Respiratory History: CHF, COPD, Pneumonia Endocrine Medical History: No Pertinent History Musculoskeletal History: Osteoarthritis GI Medical History: Hemorrhoids, Hernia History: No Pertinent History Psycho-Social History: Anxiety, Depression Female Reproductive Disorders: No Pertinent History Other Medical History: PELVIC AND NECK FRACTURE - Past Surgical History Past Surgical History: Yes Neuro Surgical History: No Pertinent History Cardiac: No Pertinent History Respiratory: No Pertinent History Gastrointestinal: Cholecystectomy, Hernia Repair Genitourinary: No Pertinent History Musculoskeletal: Joint Replacement, Orthopedic Surgery Female Surgical History: No Pertinent History - Social History Smoking Status: Former smoker Exposure to second hand smoke: No Drug Use: none Patient Lives Alone: No - Female History Hx Now: No - Physical Exam General Appearance: moderate distress, alert Eye Exam: PERRL/EOMI, eyes nml inspection Ears, Nose, Throat Exam: normal ENT inspection, moist mucous membranes Neck Exam: normal inspection, non-tender, supple, full range of motion Respiratory Exam: crackles/rales, No respiratory distress Cardiovascular Exam: regular rate/rhythm, normal heart sounds Gastrointestinal/Abdomen Exam: soft, tenderness, No mass, No guarding, No pulsatile mass, No rebound Pelvic Exam: deferred Rectal Exam: deferred Back Exam: normal inspection, No CVA tenderness, No vertebral tenderness Extremity Exam: normal inspection, normal range of motion Neurologic Exam: alert, oriented x 3, cooperative, normal mood/affect, sensation nml, No motor deficits Skin Exam: normal color, warm, dry SpO2 Interpretation: hypoxic, O2 applied SpO2: 97 Oxygen Delivery: Nasal Cannula - Course Nursing assessment & vital signs reviewed: Yes EKG Interpreted by Me: Sinus Tach, NORMAL AXIS, NORMAL QRS, Non-specific ST Changes, Other (poor r wave progression, similar to previous) - Radiology Exams Chest X-ray Interpretation: Reviewed by me, No Pneumothorax, Other (atelectasis / infiltrates) - CT Exams Abdomen/Pelvis CT Interpretation: Tele-radiologist Report, Other (small bowel diverticulum/ mesenteric inflammation/HH) Ordered Tests: Active Orders 24 hr Category Date Time Status Imaging Center Manager STAT Care 06/23/16 02:17 Active Clean Catch Urine Specimen STAT Care 06/23/16 02:17 Active EKG-ER Only STAT Care 06/23/16 02:17 Active IV Insertion STAT Care 06/23/16 02:17 Active Oxygen-ED Only NASAL CANNULA 2 lpm Care 06/23/16 02:17 Active ABDOMEN AND PELVIS W/0 CONTRAS [CT] Stat Exams 06/23/16 02:28 Taken CHEST 1 VIEW (PORTABLE) Stat Exams 06/23/16 02:18 Taken CHEST WITH CONTRAST [CT] Stat Exams 06/23/16 02:50 Ordered AMYLASE Stat Lab 06/23/16 02:24 Completed CBC W DIFF Stat Lab 06/23/16 02:24 Completed CK-Creatinine Phosphokinase Stat Lab 06/23/16 02:24 Completed CMP Stat Lab 06/23/16 02:24 Completed D-DIMER QUANTITATION Stat Lab 06/23/16 02:24 Completed INFLUENZA A+B Stat Lab 06/23/16 02:30 Completed LIPASE Stat Lab 06/23/16 02:24 Completed Lactic Acid Urgent Lab 06/23/16 02:28 Completed Manual Differential NC Stat Lab 06/23/16 02:24 Completed NT PRO BNP Stat Lab 06/23/16 02:24 Completed Occult Blood,Stool Other Stat Lab 06/23/16 02:45 Uncollected T4 Stat Lab 06/23/16 02:24 Completed TROPONIN Q3H Lab 06/23/16 02:24 Completed TROPONIN Q3H Lab 06/23/16 05:30 Ordered TROPONIN Q3H Lab 06/23/16 08:30 Ordered TROPONIN Q3H Lab 06/23/16 11:30 Ordered TROPONIN Q3H Lab 06/23/16 14:30 Ordered TSH, 3RD Generation Stat Lab 06/23/16 02:24 Completed UA W/ MICROSCOPIC Stat Lab 06/23/16 02:43 Completed Medication Summary Generic Name Dose Route Start Last Admin Trade Name Freq PRN Reason Stop Dose Admin Sodium Chloride 1,000 mls @ 50 mls/hr 06/23/16 02:30 06/23/16 02:32 Sodium Chloride 0.9% 1000 Ml IV 07/23/16 02:29 50 mls/hr .Q20H SUZY Administration Nitroglycerin/Dextrose 250 mls @ 0 mls/hr 06/23/16 02:33 Ntg 0.2mg/Ml In D5w Glass IV 07/23/16 02:32 .Q0M PRN CHEST PAIN Protocol Per Protocol Discontinued Medications Generic Name Dose Route Start Last Admin Trade Name Freq PRN Reason Stop Dose Admin Hydromorphone HCl 0.5 mg 06/23/16 02:54 06/23/16 05:21 Dilaudid 1 Mg/Ml Injection IV 06/23/16 02:55 Not Given STAT ONE Sodium Chloride Confirm 06/23/16 02:31 Sodium Chloride 0.9% 1000 Ml Administered 06/23/16 02:32 Dose 1,000 mls @ ud .ROUTE .STK-MED ONE Piperacillin Sod/Tazobactam Sod 100 mls @ 100 mls/hr 06/23/16 02:38 06/23/16 05:21 Zosyn 3.375gm/100 Ml D5w IV 06/23/16 03:37 Not Given STAT ONE Ceftriaxone Sodium/Dextrose 50 mls @ 100 mls/hr 06/23/16 02:39 06/23/16 05:21 Rocephin 1 Gm-D5w 50 Ml Bag IV 06/23/16 03:08 Not Given STAT ONE Piperacillin Sod/Tazobactam Sod Confirm 06/23/16 02:41 Zosyn 3.375gm/100 Ml D5w Administered 06/23/16 02:42 Dose 100 mls @ ud IV .STK-MED ONE Ceftriaxone Sodium/Dextrose Confirm 06/23/16 02:42 Rocephin 1 Gm-D5w 50 Ml Bag Administered 06/23/16 02:43 Dose 50 mls @ ud IV .STK-MED ONE Nitroglycerin/Dextrose Confirm 06/23/16 02:42 Ntg 0.2mg/Ml In D5w Glass Administered 06/23/16 02:43 Dose 250 mls @ ud IV .STK-MED ONE Metronidazole 100 mls @ 100 mls/hr 06/23/16 02:46 06/23/16 05:21 Flagyl 500 Mg Ivpb IV 06/23/16 03:45 Not Given STAT ONE Lorazepam 0.5 mg 06/23/16 03:10 06/23/16 03:18 Ativan 0.5 Mg PO 06/23/16 03:11 0.5 mg STAT ONE Administration Lorazepam Confirm 06/23/16 03:12 Ativan 1 Mg Administered 06/23/16 03:13 Dose 1 mg .ROUTE .STK-MED ONE Metronidazole 500 mg 06/23/16 03:28 06/23/16 03:32 Flagyl 500 Mg PO 06/23/16 03:29 500 mg STAT ONE Administration Metronidazole Confirm 06/23/16 03:30 Flagyl 500 Mg Administered 06/23/16 03:31 Dose 500 mg .ROUTE .ST-MED ONE Lab/Rad Data: Laboratory Result Diagrams 06/23/16 02:24 06/23/16 02:24 Laboratory Results 06/23/16 06/23/16 06/23/16 Range/Units 02:43 02:30 02:28 WBC (4.0-10.5) K/mm3 RBC (4.1-5.4) M/mm3 Hgb (12.0-16.0) gm/dl Hct (35-47) % MCV (78-100) fl MCH (26-32) pg MCHC (32-36) g/dl RDW (11.5-14.0) % Plt Count (150-450) K/mm3 MPV (6-9.5) fl Segmented Neutrophils (36.0-66.0) % Band Neutrophils (0.0-2.0) % Lymphocytes (Manual) (24-44) % Monocytes (Manual) (0.0-12.0) % Differential Comment Atypical Lymphocytes % Platelet Estimate (NORMAL) D-Dimer (0.00-0.49) mg/L Sodium (136-145) mEq/L Potassium (3.5-5.1) mEq/L Chloride (98-107) mEq/L Carbon Dioxide (21-32) mEq/L Anion Gap (5-15) MEQ/L BUN (9-20) mg/dL Creatinine (0.55-1.30) mg/dl Estimated GFR ML/MIN Glucose (70-110) MG/DL Lactic Acid 0.6 (0.4-2.0) Calcium (8.5-10.1) mg/dL Total Bilirubin (0.2-1.0) mg/dL AST (15-37) U/L ALT (12-78) U/L Alkaline Phosphatase (46-116) U/L Creatine Kinase (26-192) U/L Troponin I (0.000-0.056) ng/ml NT-Pro-B Natriuret Pep (0-450) pg/ml Serum Total Protein (6.4-8.2) gm/dL Albumin (3.4-5.0) g/dL Amylase (25-115) U/L Lipase (73-393) U/L Thyroxine (T4) (4.7-13.3) UG/DL TSH 3rd Generation (0.358-3.740) mIU/L Ur Collection Type CATH Urine Color YELLOW (YELLOW) Urine Appearance CLEAR (CLEAR) Urine pH 5.5 (5-6) Ur Specific [place] 1.025 (1.005-1.025) Urine Protein NEGATIVE (Negative) Urine Glucose (UA) NEGATIVE (NEGATIVE) mg/dL Urine Ketones NEGATIVE (NEGATIVE) Urine Nitrite NEGATIVE (NEGATIVE) Urine Bilirubin NEGATIVE (NEGATIVE) Urine Urobilinogen 0.2 (0-1) mg/dL Urine WBC (Auto) NEGATIVE (NEGATIVE) Urine RBC (Auto) SMALL (0-5) Jonh/ul Urine Microscopic RBC 2-5 (0-2) /HPF Urine Microscopic WBC 0-2 (0-5) /HPF Ur Epithelial Cells MODERATE (FEW) /HPF Urine Bacteria FEW (NEGATIVE) /HPF Influenza Type A Ag NEGATIVE (NEGATIVE) Influenza Type B Ag NEGATIVE (NEGATIVE) Specimen Received 06/23/16 0340 06/23/16 06/23/16 06/23/16 Range/Units 02:24 02:24 02:24 WBC (4.0-10.5) K/mm3 RBC (4.1-5.4) M/mm3 Hgb (12.0-16.0) gm/dl Hct (35-47) % MCV (78-100) fl MCH (26-32) pg MCHC (32-36) g/dl RDW (11.5-14.0) % Plt Count (150-450) K/mm3 MPV (6-9.5) fl Segmented Neutrophils (36.0-66.0) % Band Neutrophils (0.0-2.0) % Lymphocytes (Manual) (24-44) % Monocytes (Manual) (0.0-12.0) % Differential Comment Atypical Lymphocytes % Platelet Estimate (NORMAL) D-Dimer 4.003 H* (0.00-0.49) mg/L Sodium 139 (136-145) mEq/L Potassium 4.1 (3.5-5.1) mEq/L Chloride 104 (98-107) mEq/L Carbon Dioxide 25.4 (21-32) mEq/L Anion Gap 13.6 (5-15) MEQ/L BUN 16 (9-20) mg/dL Creatinine 1.08 (0.55-1.30) mg/dl Estimated GFR 51 ML/MIN Glucose 101 (70-110) MG/DL Lactic Acid (0.4-2.0) Calcium 8.5 (8.5-10.1) mg/dL Total Bilirubin 0.5 (0.2-1.0) mg/dL AST 15 (15-37) U/L ALT 10 L (12-78) U/L Alkaline Phosphatase 53 (46-116) U/L Creatine Kinase 22 L (26-192) U/L Troponin I < 0.017 (0.000-0.056) ng/ml NT-Pro-B Natriuret Pep 227 (0-450) pg/ml Serum Total Protein 5.6 L (6.4-8.2) gm/dL Albumin 2.5 L (3.4-5.0) g/dL Amylase 24 L (25-115) U/L Lipase 58 L (73-393) U/L Thyroxine (T4) 9.0 (4.7-13.3) UG/DL TSH 3rd Generation 3.703 (0.358-3.740) mIU/L Ur Collection Type Urine Color (YELLOW) Urine Appearance (CLEAR) Urine pH (5-6) Ur Specific [place] (1.005-1.025) Urine Protein (Negative) Urine Glucose (UA) (NEGATIVE) mg/dL Urine Ketones (NEGATIVE) Urine Nitrite (NEGATIVE) Urine Bilirubin (NEGATIVE) Urine Urobilinogen (0-1) mg/dL Urine WBC (Auto) (NEGATIVE) Urine RBC (Auto) (0-5) Jonh/ul Urine Microscopic RBC (0-2) /HPF Urine Microscopic WBC (0-5) /HPF Ur Epithelial Cells (FEW) /HPF Urine Bacteria (NEGATIVE) /HPF Influenza Type A Ag (NEGATIVE) Influenza Type B Ag (NEGATIVE) Specimen Received 06/23/16 Range/Units 02:24 WBC 6.8 (4.0-10.5) K/mm3 RBC 4.85 (4.1-5.4) M/mm3 Hgb 12.4 (12.0-16.0) gm/dl Hct 38.3 (35-47) % MCV 79.0 (78-100) fl MCH 25.5 L (26-32) pg MCHC 32.4 (32-36) g/dl RDW 17.7 H (11.5-14.0) % Plt Count 154 (150-450) K/mm3 MPV 12.0 H (6-9.5) fl Segmented Neutrophils 81 H (36.0-66.0) % Band Neutrophils 1 (0.0-2.0) % Lymphocytes (Manual) 14 L (24-44) % Monocytes (Manual) 1 (0.0-12.0) % Differential Comment NORMAL Atypical Lymphocytes 3 % Platelet Estimate NORMAL (NORMAL) D-Dimer (0.00-0.49) mg/L Sodium (136-145) mEq/L Potassium (3.5-5.1) mEq/L Chloride (98-107) mEq/L Carbon Dioxide (21-32) mEq/L Anion Gap (5-15) MEQ/L BUN (9-20) mg/dL Creatinine (0.55-1.30) mg/dl Estimated GFR ML/MIN Glucose (70-110) MG/DL Lactic Acid (0.4-2.0) Calcium (8.5-10.1) mg/dL Total Bilirubin (0.2-1.0) mg/dL AST (15-37) U/L ALT (12-78) U/L Alkaline Phosphatase (46-116) U/L Creatine Kinase (26-192) U/L Troponin I (0.000-0.056) ng/ml NT-Pro-B Natriuret Pep (0-450) pg/ml Serum Total Protein (6.4-8.2) gm/dL Albumin (3.4-5.0) g/dL Amylase (25-115) U/L Lipase (73-393) U/L Thyroxine (T4) (4.7-13.3) UG/DL TSH 3rd Generation (0.358-3.740) mIU/L Ur Collection Type Urine Color (YELLOW) Urine Appearance (CLEAR) Urine pH (5-6) Ur Specific [place] (1.005-1.025) Urine Protein (Negative) Urine Glucose (UA) (NEGATIVE) mg/dL Urine Ketones (NEGATIVE) Urine Nitrite (NEGATIVE) Urine Bilirubin (NEGATIVE) Urine Urobilinogen (0-1) mg/dL Urine WBC (Auto) (NEGATIVE) Urine RBC (Auto) (0-5) Jonh/ul Urine Microscopic RBC (0-2) /HPF Urine Microscopic WBC (0-5) /HPF Ur Epithelial Cells (FEW) /HPF Urine Bacteria (NEGATIVE) /HPF Influenza Type A Ag (NEGATIVE) Influenza Type B Ag (NEGATIVE) Specimen Received - Progress Progress: re-examined Air Movement: good Progress Note: 06/23/16 02:56 pt declines IVs for drip or for CT contrast and declines hemocult or further IV treatment after IV had infiltrated 06/23/16 03:05 06/23/16 03:22 pts POA ( nitheodora Castillo ) was notified of pts wishes limiting care including IV required meds/treatments and she has also agreed and is a family member.and has the capacity to make these choices and agrees with pts wishes. note that pt has a valid and confirmed DNR also.on file here and reconfirmed tonight with the POA. 06/23/16 04:13 pt does state that her CP has resolved and that she wishes to return to [place]. We are awaiting CT reading. 06/23/16 05:12 CT shows some loop of SB with mesenteric inflammation possibly SB divertic or contained perforation. also abd wall or pelvic hematoma; D-Dimer is elevated but has been before in 2013 without evidence of PE in records. negative CTA at that time for PE. THese results and findings were discussed with pt, Dr. Stuart hong , and with the pts POA Ms. Castillo. THey are all aware that the pt may or have a further serious complication but pt declines further stay in hospital or IV treatment or evaluation such as CTA or contrast in CT abd , and serial trops and ekgs and monitoring in hospital to rule out some of these conditions such as PE , infarcted bowel , bowel abscess or perforation, or other pathology, and from missed ID or other pathology. PT also expresses that she does not wish to delay return for additional testing at this time of any sort . proph lovenix was considered but pt has abd hematoma on CT and previously has had elevated d dimer with negative CTA for PE thus felt that best to avoid anticoagulation and perform study such as VQ scan if pt will allow tomorrow. We will add flagyl to AB regimen as can take oral and all agree with the above treatment plan incluidng Dr. Davidson, pt and POA Ms Isiah Castillo and are aware or complications of serious nature may occur from returning to [place] without IV required evaluations and/or treatments and/or hospitalization. repeat abd exam is nontender at this time, pt states no pain of any sort now. pts POA tax representative has the capacity to chose treatment or decline treatment in keeping with pts expressed wishes and is aware of potential of and including ID, PE, bowel complications and other undetected pathology in making this choice to decline admission , further evaluation or treatments. 06/23/16 05:17 06/23/16 05:31 06/23/16 05:47 the pt requests release to return to [place] at this time without further evaluation/ testing of any kind . Blood Culture(s) Obtained: No Antibiotics given: No Discussed with Dr.: Other (Dr. Stuart hong) Will see patient in: other ([place] PCP to f/u on pt. ) Counseled pt/family regarding: lab results, diagnosis, need for follow-up, rad results - Departure Time of Disposition: 05:29 Departure Disposition: Home (to [place] actually) Clinical Impression: Abdominal pain, Elevated d-dimer, Chest pain of uncertain etiology, Intestinal infection, intestinal pathology of unknown etiology Condition: Fair Critical Care Time: No Instructions: Chest Pain, Angina, Abdominal Pain-Adult Additional Instructions: You have declined admission to the hospital at this time for your chest pain and abdominal pain. You have declined further evaluation at this time with testing requiring an IV and also declined any treatments requiring an IV. You have request return to the [place] at this time without further delay from further additional testing/treatment. There are serious things which you could have that might result in or complications such as a heart attack, perforated bowel or bowel infection or twisted/blocked bowel or blood vessels or blood clots to the lungs , heart or intestines. We have started the additional antibiotic of flagyl 500 mg every 6 hours with can be taken orally and your levequin should be continued also. We have discussed the risk/benefit of anticoagulation for potential lung blood clot with you and your POA and your covering Stuart Barbosa and due to what appears to be a collection of blood on the CT scan performed the risk appears to outweigh the benefit without further evaluation to confirm any PE.; previous workups in the past for this condition did not find any PE and therefore no need for anticoagulation . Dr. Davidson requests that your treating physician at the [place] re-evaluate you in the morning to consider if testing such as VQ scan could be beneficial , if you approve at that time. You may return at any time you chose to continue evaluation and treatment .
[2016-06-23] MEDS ORDERED: Sodium Chloride 0.9% 1000 ML 1,000 ML IV SCH (02:30)
[2016-06-23] MEDS ORDERED: Sodium Chloride 0.9% 1000 ML 1,000 ML ONE (02:31)
[2016-06-23] MEDS ORDERED: Ntg 0.2MG/Ml in D5W GLASS*** 250 ML IV PRN (02:33)
[2016-06-23] MEDS ORDERED: Zosyn 3.375GM/100 Ml D5W 100 ML IV ONE (02:38)
[2016-06-23] MEDS ORDERED: ROCEPHIN 1 Gm-D5w 50 ml Bag** 50 ML IV ONE (02:39)
[2016-06-23] MEDS ORDERED: TAZOBACTAM IV ONE (02:41)
[2016-06-23] MEDS ORDERED: PIPERACILLIN IV ONE (02:41)
[2016-06-23] MEDS ORDERED: DEXTROSE IV ONE (02:41)
[2016-06-23 02:42] LABS: Mean Corpuscular Hemoglobin 25.5 pg (26-32); Platelet Count 154 K/mm3 (150-450); Red Blood Count 4.85 M/mm3 (4.1-5.4); Red Cell Distribution Width 17.7 % (11.5-14.0); White Blood Count 6.8 K/mm3 (4.0-10.5)
[2016-06-23] MEDS ORDERED: D5W IV ONE (02:42)
[2016-06-23] MEDS ORDERED: ROCEPHIN 1 GM IV ONE (02:42)
[2016-06-23] MEDS ORDERED: Ntg 0.2MG/Ml in D5W GLASS*** 0 ML IV ONE (02:42)
[2016-06-23] MEDS ORDERED: FLAGYL 500 MG IVPB 100 ML IV ONE (02:46)
[2016-06-23 02:48] LABS: ALBUMIN 2.5 g/dL (3.4-5.0); ANION GAP 13.6 MEQ/L (5-15); BILIRUBIN,TOTAL 0.5 mg/dL (0.2-1.0); Carbon Dioxide 25.4 mEq/L (21-32); Potassium 4.1 mEq/L (3.5-5.1); Total Protein 5.6 gm/dL (6.4-8.2)
[2016-06-23] MEDS ORDERED: DILAUDID 1 MG/ML INJECTION IV ONE (02:54)
[2016-06-23] MEDS ORDERED: Ativan 0.5 MG PO ONE (03:10)
[2016-06-23 03:11] LABS: ATYPICAL LYMPHS 3 %; BAND 1 % (0.0-2.0); Platelet Estimate NORMAL (NORMAL); Total Cells Counted 100
[2016-06-23] MEDS ORDERED: Ativan 1 MG ONE (03:12)
[2016-06-23 03:14] LABS: Collection Type CATH; Ph 5.5 (5-6)
[2016-06-23 03:15] LABS: Bacteria FEW /HPF (NEGATIVE); COMPLETE URINE MICROSCOPIC? YES; Epithelial Cells MODERATE /HPF (FEW); WBC 0-2 /HPF (0-5)
[2016-06-23] MEDS ORDERED: Flagyl 500 MG PO ONE (03:28)
[2016-06-23] MEDS ORDERED: Flagyl 500 MG ONE (03:30)
[2016-06-23 04:54] VITALS: PULSE 108
[2016-06-23 06:07] VITALS: BP 117/54; O2SAT 92
--- NOTE | 2016-06-23 08:51 | XRAY ---
Indication: Abdomen tenderness with chest pain. Multiple contiguous axial images obtained through the abdomen and pelvis without contrast as ordered. Comparison: June 13, 2016 Study again degraded by respiration artifact. Left hip bipolar prosthesis again produces extreme beam artifact limiting this level. Lung bases demonstrates minimal bibasilar atelectasis/scarring and hiatal hernia unchanged. Heart is not enlarged. Noncontrasted stomach and bowel loops nonobstructed again with scattered colonic fecal debris throughout. In the left midabdomen there is now focal distended small bowel loop measuring approximately 3.8 cm with intraluminal fecal-like material and surrounding stranding suggesting inflammatory process. Partial differential includes inflamed small bowel diverticulum versus abscess. No free fluid/air. Sigmoid diverticulosis without diverticulitis. Stable epigastric postsurgical changes, previous lower ventral hernia surgery, and cholecystectomy. Remaining liver, pancreas, spleen, adrenal glands, kidneys, ureters, and bladder appear unremarkable for noncontrast exam. Stable osteopenia, multilevel degenerative spondylosis, levorotoscoliosis, and old inferior pubic bone fractures. Impression: 1. Again there is respiration artifact, less than before. 2. New focal dilated small bowel loop in the left midabdomen as detailed. Partial differential includes inflamed small bowel diverticulum versus abscess. Contrast exam using IV and enteric contrast may yield further information. 3. Incidental hiatal hernia, fecal stasis, and sigmoid diverticulosis. Comment: Preliminary interpretation was made by [facility] who reports possible hematoma just anterior to the ventral hernia mesh graft. This is unchanged with respect to CT pelvis exam of January 24, 2013 and therefore chronic. No critical discrepancy. CTDI is 22.18
--- NOTE | 2016-06-23 08:53 | XRAY ---
Indication: Chest pain. Comparison: June 17, 2016 Portable chest again hyperinflated and nonacute with chronic lung markings, calcified granulomas, and blunting of both costophrenic angles. Heart is not enlarged. No new/acute cardiopulmonary abnormalities.
== END 2016-06-23 06:06 ==
LOC: ED 01:46
DX: R10.13 Epigastric pain (principal); R79.1 Abnormal coagulation profile; R07.89 Other chest pain; A09 Infectious gastroenteritis and colitis, unspecified; R00.2 Palpitations; R06.02 Shortness of breath; Z79.899 Other long term (current) drug therapy; I50.9 Heart failure, unspecified; I25.10 Atherosclerotic heart disease of native coronary artery without angina pectoris; I10 Essential (primary) hypertension
CPT/HCPCS: 93041; 99284; 96360; 93005; 82150; 81000; 84443; 36415; 82550; 84436; 83690; 83880; 85379; 85025; 80053; 84484; 87400; 71010; 74176; 83605; P9612; J0696; J2543

== ENCOUNTER 2016-06-30 09:48 | Inpatient (IN) | payer MEDICARE ==
--- NOTE | 2016-06-30 10:27 | ERPHSYRPT ---
- History of Present Illness Time Seen by Provider: 06/30/16 10:18 Historian: patient Exam Limitations: no limitations Patient Subjective Stated Complaint: PT BROUGHT TO ED PER EMS FROM [facility] PT HAD BLACK TARRY STOOL X 2 ET VOMIT X 1 THIS AM Triage Nursing Assessment: PT PALE WARM ET DRY-PT UNABLE TO ANSWER ALL QUESTIONS -NORMAL FOR PT-NO REACTION TO PALP Physician History: 89-year-old white female with history of peripheral neuropathy, cataracts, congestive heart failure, coronary artery disease, brought from the [facility]way with complaints of low black tarry stools 2 this morning at the half-way. Patient is stating that she has some abdominal pain as well. Patient appears to be very hard of hearing she is however alert and oriented to person and place. Past medical history includes peripheral neuropathy, cataracts, congestive heart failure, coronary artery disease, high blood pressure, COPD, pneumonia, hemorrhoids, anxiety, depression, pelvic and neck fractures Past surgical history includes cholecystectomy hernia repair joint replacement Timing/Duration: today Activities at Onset: none Quality: cramping Abdominal Pain Onset Location: periumbilical Pain Radiation: no radiation Severity of Pain-Max: mild Severity of Pain-Current: mild Modifying Factors: Improves With: nothing, other (dark tarry stools 2 this morning). Worsens With: analgesics, antacids, breathing, coughing, defecating, eating, exercise, lying down, movement, palpation, rest, urinating, vomiting, position, walking Associated Symptoms: other (Dark tarry stools 2 this morning), No back, No chest pain, No diaphoresis, No diarrhea, No fever/chills, No fatigue, No headache, No heartburn, No loss of appetite, No nausea, No neck pain, No rash, No shortness of breath, No syncope, No vomiting, No weakness Previous symptoms: no prior history Allergies/Adverse Reactions: erythromycin base [Erythromycin Base] Allergy (Unknown, Verified 06/30/16 09:58) hydrocodone [Hydrocodone] Allergy (Unknown, Verified 06/30/16 09:58) meperidine HCl [From Demerol] Allergy (Unknown, Verified 06/30/16 09:58) quinine Allergy (Verified 06/30/16 09:58) Home Medications: Potassium Chloride 10 Meq Tab* [Klor Con 10 MEQ] 10 meq PO DAILY 07/09/12 [ History] Aspirin [Aspirin EC] 81 mg PO DAILY 01/25/14 [History] Pregabalin [Lyrica] 75 mg PO BID 01/25/14 [History] Cetirizine HCl [Zyrtec] 10 mg PO DAILY 06/07/16 [History] Acetaminophen 325 mg [Tylenol 325 mg] 650 mg PO Q4H PRN PRN 06/13/16 [ History] Lorazepam 0.5 mg [Ativan 0.5 MG] 0.5 mg PO Q8HPRN PRN 06/13/16 [History] Omeprazole 20 MG [Prilosec 20 mg] 20 mg PO DAILY 06/13/16 [History] Magnesium Hydroxide 30 ml [Milk of Magnesia 30 ml] 30 ml PO DAILY PRN 03/24 [History] Furosemide 40 mg [Lasix 40 MG] 20 mg PO DAILY 06/23/16 [History] Hx Tetanus, Diphtheria Vaccination/Date Given: No Hx Influenza Vaccination/Date Given: Yes (2015) Hx Pneumococcal Vaccination/Date Given: Yes (2015) Immunizations Up to Date: Yes - Review of Systems Constitutional: No Fever, No Chills Eyes: No Symptoms Ears, Nose, & Throat: No Symptoms Respiratory: No Cough, No Dyspnea Cardiac: No Chest Pain, No Edema, No Syncope Abdominal/Gastrointestinal: Abdominal Pain, Melena, No Nausea, No Vomiting, No Diarrhea, No Constipation, No Hematemesis, No Hematochezia, No Dysphagia, No Appetite Changes Genitourinary Symptoms: No Dysuria Musculoskeletal: No Back Pain, No Neck Pain Skin: No Rash Neurological: No Symptoms Psychological: No Symptoms Endocrine: No Symptoms All Other Systems: Reviewed and Negative - Past Medical History Pertinent Past Medical History: Yes Neurological History: Peripheral Neuropathy ENT History: Cataracts Cardiac History: Congestive Heart Failure, Coronary Artery Disease, Hypertension Respiratory History: CHF, COPD, Pneumonia Endocrine Medical History: No Pertinent History Musculoskeletal History: Osteoarthritis GI Medical History: Hemorrhoids, Hernia History: No Pertinent History Psycho-Social History: Anxiety, Depression Female Reproductive Disorders: No Pertinent History Other Medical History: PELVIC AND NECK FRACTURE - Past Surgical History Past Surgical History: Yes Neuro Surgical History: No Pertinent History Cardiac: No Pertinent History Respiratory: No Pertinent History Gastrointestinal: Cholecystectomy, Hernia Repair Genitourinary: No Pertinent History Musculoskeletal: Joint Replacement, Orthopedic Surgery Female Surgical History: No Pertinent History - Social History Smoking Status: Former smoker Exposure to second hand smoke: No Drug Use: none Patient Lives Alone: No - Female History Hx Now: No - Nursing Vital Signs Nursing Vital Signs: Initial Vital Signs Temperature 97.4 F Temperature Source Oral Pulse Rate 114 Respiratory Rate 18 Blood Pressure [Right Arm] 132/63 Pain Intensity 0 - Physical Exam General Appearance: other (well-developed elderly white female in no apparentdistress, alert oriented to person and placehard of hearing) Eye Exam: PERRL/EOMI, eyes nml inspection Ears, Nose, Throat Exam: normal ENT inspection, pharynx normal, moist mucous membranes Neck Exam: normal inspection, non-tender, supple, full range of motion Respiratory Exam: normal breath sounds, lungs clear, No respiratory distress Cardiovascular Exam: regular rate/rhythm, normal heart sounds Gastrointestinal/Abdomen Exam: soft, tenderness (periumbilical tenderness), No distention, No mass, No guarding, No ecchymosis, No pulsatile mass, No rebound, No hernia, No hepatomegaly, No organomegaly, No splenomegaly Back Exam: normal inspection, normal range of motion, No CVA tenderness, No vertebral tenderness Extremity Exam: normal inspection, normal range of motion, pelvis stable Neurologic Exam: alert, cooperative, 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 no acute st or t wave changes noted) Ordered Tests: Active Orders 24 hr Category Date Time Status EKG-ER Only STAT Care 06/30/16 11:59 Active IV Insertion STAT Care 06/30/16 10:21 Active AMYLASE Stat Lab 06/30/16 11:35 Completed CBC W DIFF Stat Lab 06/30/16 11:35 Completed CMP Stat Lab 06/30/16 11:35 Completed LIPASE Stat Lab 06/30/16 11:35 Completed Manual Differential NC Stat Lab 06/30/16 11:35 Completed Occult Blood,Stool Other Stat Lab 06/30/16 10:22 Ordered UA Stat Lab 06/30/16 10:21 Ordered Medication Summary Generic Name Dose Route Start Last Admin Trade Name Stuart PRN Reason Stop Dose Admin Sodium Chloride 1,000 mls @ 100 mls/hr 06/30/16 12:00 06/30/16 12:15 Sodium Chloride 0.9% 1000 Ml IV 07/30/16 11:59 100 mls/hr .Q10H SUZY Administration Discontinued Medications Generic Name Dose Route Start Last Admin Trade Name Stuart PRN Reason Stop Dose Admin Sodium Chloride Confirm 06/30/16 12:07 Sodium Chloride 0.9% 1000 Ml Administered 06/30/16 12:08 Dose 1,000 mls @ ud .ROUTE .STK-MED ONE Pantoprazole Sodium 40 mg 06/30/16 12:01 06/30/16 12:15 Protonix 40 Mg Iv IV 06/30/16 12:02 40 mg STAT ONE Administration Pantoprazole Sodium Confirm 06/30/16 12:07 Protonix 40 Mg Iv Administered 06/30/16 12:08 Dose 40 mg IV .STK-MED ONE Lab/Rad Data: Laboratory Result Diagrams 06/30/16 11:35 06/30/16 11:35 Laboratory Results 06/30/16 06/30/16 Range/Units 11:35 11:35 WBC 8.1 (4.0-10.5) K/mm3 RBC 3.23 L (4.1-5.4) M/mm3 Hgb 8.3 L (12.0-16.0) gm/dl Hct 27.0 L (35-47) % MCV 83.6 (78-100) fl MCH 25.6 L (26-32) pg MCHC 30.7 L (32-36) g/dl RDW 17.1 H (11.5-14.0) % Plt Count 155 (150-450) K/mm3 MPV 11.2 H (6-9.5) fl Sodium 141 (136-145) mEq/L Potassium 5.1 (3.5-5.1) mEq/L Chloride 106 (98-107) mEq/L Carbon Dioxide 29.1 (21-32) mEq/L Anion Gap 10.9 (5-15) MEQ/L BUN 26 H (9-20) mg/dL Creatinine 0.73 (0.55-1.30) mg/dl Estimated GFR > 60 ML/MIN Glucose 94 (70-110) MG/DL Calcium 8.4 L (8.5-10.1) mg/dL Total Bilirubin 0.2 (0.2-1.0) mg/dL AST 20 (15-37) U/L ALT 9 L (12-78) U/L Alkaline Phosphatase 49 (46-116) U/L Serum Total Protein 5.1 L (6.4-8.2) gm/dL Albumin 2.1 L (3.4-5.0) g/dL Amylase 35 (25-115) U/L Lipase 67 L (73-393) U/L - Progress Progress: improved Progress Note: 06/30/16 12:00 Patient with gross hematochezia on rectal examination. Patient's hemoglobin is 8.3 hematocrit 27.0. The nurses were able to obtain an IV on patient's right antecubital. I have discussed case with Dr. Chawla will place patient on ICU obtain surgery consult type and crossmatched 2 units of packed red cells. - Departure Time of Disposition: 12:23 Departure Disposition: Observation Clinical Impression: GI bleed Qualifiers: GI bleed type/associated pathology: unspecified gastrointestinal hemorrhage type Qualified Code(s): K92.2 - Gastrointestinal hemorrhage, unspecified Condition: Fair Critical Care Time: No
[2016-06-30 11:39] LABS: Mean Cell Volume 83.6 fl (78-100); Mean Platelet Volume 11.2 fl (6-9.5); Platelet Count 155 K/mm3 (150-450); Red Blood Count 3.23 M/mm3 (4.1-5.4); Red Cell Distribution Width 17.1 % (11.5-14.0); White Blood Count 8.1 K/mm3 (4.0-10.5)
[2016-06-30 11:46] LABS: Mean Corpuscular Hemoglobin 25.6 pg (26-32)
[2016-06-30 11:54] LABS: ALBUMIN 2.1 g/dL (3.4-5.0); ALKALINE PHOSPHATASE 49 U/L (46-116); ANION GAP 10.9 MEQ/L (5-15); BILIRUBIN,TOTAL 0.2 mg/dL (0.2-1.0); BLOOD UREA NITROGEN 26 mg/dL (9-20); CHLORIDE 106 mEq/L (98-107); Carbon Dioxide 29.1 mEq/L (21-32); Glucose 94 MG/DL (70-110); LIPASE 67 U/L (73-393); Potassium 5.1 mEq/L (3.5-5.1); SGOT/AST 20 U/L (15-37); SGPT/ALT 9 U/L (12-78); SODIUM 141 mEq/L (136-145); Total Protein 5.1 gm/dL (6.4-8.2)
[2016-06-30] MEDS ORDERED: Sodium Chloride 0.9% 1000 ML 1,000 ML IV SCH (12:00)
[2016-06-30] MEDS ORDERED: PROTONIX 40 MG IV IV ONE ×2 (12:01→12:07)
[2016-06-30] MEDS ORDERED: Sodium Chloride 0.9% 1000 ML 1,000 ML ONE (12:07)
[2016-06-30 12:10] LABS: BAND 1 % (0.0-2.0); Total Cells Counted 100
[2016-06-30 12:24] LABS: Platelet Estimate NORMAL (NORMAL); Polychromasia RARE
[2016-06-30 12:25] LABS: ANISOCYTOSIS 1+; Hypochromia RARE
[2016-06-30 15:06] LABS: COMPLETE URINE MICROSCOPIC? NO; Collection Type VOID
[2016-06-30 16:05] LABS: Mean Cell Volume 82.6 fl (78-100); Mean Corpuscular Hemoglobin 25.2 pg (26-32); Mean Platelet Volume 11.5 fl (6-9.5); Platelet Count 184 K/mm3 (150-450); Red Blood Count 3.05 M/mm3 (4.1-5.4); Red Cell Distribution Width 17.1 % (11.5-14.0); White Blood Count 6.8 K/mm3 (4.0-10.5)
[2016-06-30 16:48] LABS: BAND 1 % (0.0-2.0); Basophil 1 % (0.0-1.0); Eosinophil 4 % (0.00-3.0); Total Cells Counted 100
[2016-06-30 16:50] LABS: ANISOCYTOSIS 1+; Hypochromia 1+
[2016-06-30 16:53] LABS: Platelet Estimate NORMAL (NORMAL); Polychromasia RARE
[2016-06-30] MEDS ORDERED: PROVENTIL 2.5 MG/3 ML NEB IH PRN (16:56)
--- NOTE | 2016-06-30 17:24 | PCM.HP ---
History of Present Illness - Chief Complaint Chief Complaint: c/o nausea vomiting with dark bloody stool Date: 06/30/16 History of Present Illness: 89-year-old white female with history of peripheral neuropathy, cataracts, congestive heart failure, coronary artery disease, [facility] the [facility] with complaints of low black tarry stools 2 this [facility] at the shelter. Patient is stating that she has some abdominal pain as well. Patient appears to be very hard of hearing she is however alert and oriented to person and place. Past medical history includes peripheral neuropathy, cataracts, congestive heart failure, coronary artery disease, high blood pressure, COPD, pneumonia, hemorrhoids, anxiety, depression, pelvic and neck fractures Past surgical history includes cholecystectomy hernia repair joint replacement Timing/Duration: today Activities at Onset: none Quality: cramping Abdominal Pain Onset Location: periumbilical Pain Radiation: no radiation Severity of Pain-Max: mild Severity of Pain-Current: mild Modifying Factors: Improves With: nothing, other (dark tarry stools 2 this morning). Worsens With: analgesics, antacids, breathing, coughing, defecating, eating, exercise, lying down, movement, palpation, rest, urinating, vomiting, position, walking Associated Symptoms: other (Dark tarry stools 2 this morning), No back, No chest pain, No diaphoresis, No diarrhea, No fever/chills, No fatigue, No headache, No heartburn, No loss of appetite, No nausea, No neck pain, No rash, No shortness of breath, No syncope, No vomiting, No weakness Previous symptoms: no prior history - Review of Systems Constitutional: No Fever, No Chills Eyes: No Symptoms Ears, Nose, & Throat: No Symptoms Respiratory: No Cough, No Short Of Breath Cardiac: No Chest Pain, No Edema, No Syncope Abdominal/Gastrointestinal: Nausea, Vomiting, Hematochezia, No Abdominal Pain, No Diarrhea Genitourinary Symptoms: No Dysuria Musculoskeletal: No Back Pain, No Neck Pain Skin: No Rash Neurological: No Dizziness, No Focal Weakness, No Sensory Changes Psychological: No Symptoms Endocrine: No Symptoms Hematologic/Lymphatic: No Symptoms Immunological/Allergic: No Symptoms Medications & Allergies Home Medications: Home Medication List Potassium Chloride 10 Meq Tab* [Klor Con 10 MEQ] 10 meq PO DAILY 07/09/12 [ History Confirmed 06/30/16] Aspirin [Aspirin EC] 81 mg PO DAILY 01/25/14 [History Confirmed 06/30/16] Pregabalin [Lyrica] 75 mg PO BID 01/25/14 [History Confirmed 06/30/16] Cetirizine HCl [Zyrtec] 10 mg PO DAILY 06/07/16 [History Confirmed 06/30/16] Acetaminophen 325 mg [Tylenol 325 mg] 650 mg PO Q4H PRN PRN 06/13/16 [ History Confirmed 06/30/16] Lorazepam 0.5 mg [Ativan 0.5 MG] 0.5 mg PO Q8HPRN PRN 06/13/16 [History Confirmed 06/30/16] Omeprazole 20 MG [Prilosec 20 mg] 20 mg PO DAILY 06/13/16 [History Confirmed ] Magnesium Hydroxide 30 ml [Milk of Magnesia 30 ml] 30 ml PO DAILY PRN 03/24 [History Confirmed 06/30/16] Donepezil HCl 10 mg [Aricept 10 MG] 5 mg PO HS #30 tablet 06/19/16 [Rx Confirmed 06/30/16] Furosemide 40 mg [Lasix 40 MG] 20 mg PO DAILY 06/23/16 [History Confirmed 06/30/16] Allergies/Adverse Reactions: Allergies Allergy/AdvReac Type Severity Reaction Status Date / Time erythromycin base Allergy Unknown Verified 06/30/16 09:58 [Erythromycin Base] hydrocodone [Hydrocodone] Allergy Unknown Verified 06/30/16 09:58 meperidine HCl [From Demerol] Allergy Unknown Verified 06/30/16 09:58 quinine Allergy Verified 06/30/16 09:58 - Past Medical History Past Medical History: Yes Neurological History: Peripheral Neuropathy ENT History: Cataracts Cardiac History: Congestive Heart Failure, Coronary Artery Disease, Hypertension Respiratory History: CHF, COPD, Pneumonia Endocrine Medical History: No Pertinent History Musculoskelatal History: Osteoarthritis GI Medical History: Hemorrhoids, Hernia History: No Pertinent History Pyscho-Social History: Anxiety, Depression Reproductive Disorders: No Pertinent History Comment: PELVIC AND NECK FRACTURE - Female History Are you now?: No - Past Surgical History Past Surgical History: Yes Neuro Surgical History: No Pertinent History Cardiac History: No Pertinent History Respiratory Surgery: No Pertinent History GI Surgical History: Cholecystectomy, Hernia Repair Genitourinary Surgical Hx: No Pertinent History Musculskeletal Surgical Hx: Joint Replacement, Orthopedic Surgery Female Surgical History: No Pertinent History - Social History Smoking Status: Former smoker Exposure to second hand smoke: No Alcohol: None Drug Use: none - Physical Exam Vital Signs: Vital Signs - 24 hr Temp Pulse Resp BP Pulse Ox 06/30/16 16:58 102 H 20 98 06/30/16 15:51 97.4 F 106 H 20 120/61 99 06/30/16 15:34 98 F 108 H 20 120/61 99 06/30/16 12:24 99 06/30/16 12:24 113 H 16 118/64 100 06/30/16 11:38 114 H 18 132/63 99 06/30/16 09:48 97.4 F 112 H 23 132/64 99 Oxygen-Last 24 hours O2 Percentage 3 Liters = 32% O2 Percentage 2 Liters = 28% General Appearance: no apparent distress, alert Neurologic Exam: alert, oriented x 3, cooperative, normal mood/affect, nml cerebellar function, nml station & gait, sensation nml, No motor deficits Eye Exam: PERRL/EOMI, eyes nml inspection Ears, Nose, Throat Exam: normal ENT inspection, TMs normal, pharynx normal, moist mucous membranes Neck Exam: normal inspection, non-tender, supple, full range of motion Respiratory Exam: normal breath sounds, lungs clear, No respiratory distress Cardiovascular Exam: regular rate/rhythm, normal heart sounds, normal peripheral pulses Gastrointestinal/Abdomen Exam: soft, normal bowel sounds, No tenderness, No mass Back Exam: normal inspection, normal range of motion, No CVA tenderness, No vertebral tenderness Extremity Exam: normal inspection, normal range of motion, pelvis stable Skin Exam: normal color, warm, dry, No rash Lymphatic Exam: No adenopathy Results - Labs Lab/Micro Results: Lab Results-Last 24 Hours 06/30/16 06/30/16 06/30/16 Range/Units 13:45 14:41 16:03 WBC 6.8 (4.0-10.5) K/mm3 RBC 3.05 L (4.1-5.4) M/mm3 Hgb 7.7 L (12.0-16.0) gm/dl Hct 25.2 L (35-47) % MCV 82.6 (78-100) fl MCH 25.2 L (26-32) pg MCHC 30.6 L (32-36) g/dl RDW 17.1 H (11.5-14.0) % Plt Count 184 (150-450) K/mm3 MPV 11.5 H (6-9.5) fl Segmented Neutrophils 72 H (36.0-66.0) % Band Neutrophils 1 (0.0-2.0) % Lymphocytes (Manual) 21 L (24-44) % Monocytes (Manual) 1 (0.0-12.0) % Eosinophils (Manual) 4 H (0.00-3.0) % Basophils (Manual) 1 (0.0-1.0) % Differential Comment ABNORMAL Platelet Estimate NORMAL (NORMAL) Polychromasia RARE Hypochromasia 1+ Anisocytosis 1+ Ur Collection Type VOID Urine Color YELLOW (YELLOW) Urine Appearance CLEAR (CLEAR) Urine pH 7.0 (5-6) Ur Specific [place] 1.015 (1.005-1.025) Urine Protein NEGATIVE (Negative) Urine Glucose (UA) NEGATIVE (NEGATIVE) mg/dL Urine Ketones NEGATIVE (NEGATIVE) Urine Nitrite NEGATIVE (NEGATIVE) Urine Bilirubin NEGATIVE (NEGATIVE) Urine Urobilinogen 0.2 (0-1) mg/dL Urine WBC (Auto) NEGATIVE (NEGATIVE) Urine RBC (Auto) TRACE HEMOLYZED (0-5) Jonh/ul Stool Occult Blood POSITIVE (Negative) Specimen Received 06/30/16 1450 - Other Procedures and Tests Respiratory Therapy 06/30/16 16:57 Oxygen NASAL CANNULA 2 lpm Respiratory Nebulizer PRN Assessment/Plan (1) GI bleed Current Visit: Yes Status: Acute Qualifiers: GI bleed type/associated pathology: unspecified gastrointestinal hemorrhage type Qualified Code(s): K92.2 - Gastrointestinal hemorrhage, unspecified Code(s): K92.2 - GASTROINTESTINAL HEMORRHAGE, UNSPECIFIED (2) Abdominal pain Current Visit: Yes Status: Acute Qualifiers: Abdominal location: generalized Qualified Code(s): R10.84 - Generalized abdominal pain Code(s): R10.9 - UNSPECIFIED ABDOMINAL PAIN
[2016-06-30] MEDS ORDERED: TYLENOL 325 MG PO PRN (19:51)
[2016-06-30] MEDS ORDERED: Lyrica 25 MG ONE (21:31)
[2016-06-30] MEDS ORDERED: Lyrica 50MG ONE (21:32)
[2016-06-30] MEDS: Aricept 10 MG PO SCH (21:39)
[2016-06-30] MEDS ORDERED: Lyrica 50MG PO SCH (22:00)
[2016-07-01] MEDS: Sodium Chloride 0.9% 1000 ML 1,000 ML IV SCH ×3 (02:53→17:20)
[2016-07-01] MEDS: DUONEB 0.5-3 MG/3 ml Neb IH SCH ×5 (05:23→18:57)
[2016-07-01 05:30] LABS: Mean Cell Volume 83.5 fl (78-100); Mean Platelet Volume 11.6 fl (6-9.5); Platelet Count 161 K/mm3 (150-450); White Blood Count 5.2 K/mm3 (4.0-10.5)
[2016-07-01 05:43] LABS: Mean Corpuscular Hemoglobin 25.6 pg (26-32)
[2016-07-01 06:26] LABS: ALBUMIN 1.8 g/dL (3.4-5.0); ALKALINE PHOSPHATASE 40 U/L (46-116); ANION GAP 10.1 MEQ/L (5-15); BILIRUBIN,TOTAL 0.2 mg/dL (0.2-1.0); BLOOD UREA NITROGEN 25 mg/dL (9-20); CHLORIDE 109 mEq/L (98-107); Carbon Dioxide 27.8 mEq/L (21-32); Glucose 84 MG/DL (70-110); Potassium 4.1 mEq/L (3.5-5.1); SGOT/AST 15 U/L (15-37); SGPT/ALT 9 U/L (12-78); SODIUM 143 mEq/L (136-145); Total Protein 4.1 gm/dL (6.4-8.2)
[2016-07-01] MEDS ORDERED: TYLENOL 325 MG PO PRN (07:37)
[2016-07-01] MEDS ORDERED: MILK OF MAGNESIA 30 ML PO PRN (07:37)
--- NOTE | 2016-07-01 08:04 | CONS ---
CONSULT DATE: 06/30/2016 This patient is seen for Dr. Brito who is mason foreman/superintendant for our group today. HISTORY: The patient is a poor historian. History is taken from the chart. Apparently a [place] patient. An 89 year-old female with question of GI bleed, some melena, and anemia. She has remote history of colonoscopy several years ago. PAST MEDICAL HISTORY: She has congestive heart failure, coronary artery disease, neuropathy, anxiety, depression, hard of hearing, hypertension, chronic obstructive pulmonary disease, history of pneumonia in the past. PAST SURGICAL HISTORY: Cholecystectomy and joint surgery in the past. It sounds like she did have a hernia repair and some hemorrhoid work in the past as well. PAST MEDICAL HISTORY: HOME MEDICATIONS: Potassium chloride, aspirin, Lyrica, Zyrtec, Tylenol, Ativan, Prilosec, magnesium hydroxide, Lasix. ALLERGIES: ERYTHROMYCIN BASE, HYDROCODONE, MEPERIDINE, DEMEROL. SOCIAL HISTORY: [place] patient. No alcohol use currently. REVIEW OF SYSTEMS: Ten systems reviewed negative or noncontributory as noted above and per admission assessment. No current chest pain or palpitations. As noted above she has arthritis, history of hemorrhoids, depression, and anxiety in the past. Pelvic and neck fractures in the past additional to all her other medical problems noted above as well as peripheral neuropathy. LAB DATA AND TESTS: White blood cell count 6.8, hemoglobin 7.7 earlier, white blood cell count 184,000. She is typed and screened currently. Occult blood was positive. PHYSICAL EXAMINATION: Temperature 97.4F, pulse 114, blood pressure 132/63, GENERAL: A chronically ill female, poor historian. HEENT: Sclera nonicteric. NECK: No JVD. CHEST: Equal excursion, nonlabored breathing. CVS: Regular rhythm, slight increased rate consistent with her anemia. ABDOMEN: Soft. No particular tenderness currently. EXTREMITIES: No significant edema. NEURO: She is alert but poor historian. She seems to be moving extremities symmetrically. IMPRESSION: Anemia consistent with GI bleed whether from ulcer disease, gastritis or diverticular disease or other etiology is unclear at this point versus telangiectasia either way I do feel she would benefit from upper and lower endoscopy at some point. I am seeing this patient for Dr. Brito, will see when he plans on proceeding. She might need transfusion at some point if she continues to trickle down. Otherwise she does not need any emergent open surgical intervention at this moment but would benefit from EGD and colonoscopy this admission. General risks of bleeding or infection, risk of bowel injury or perforation, risk of missed or nondiagnosis or incomplete exam possibly requiring barium enema or other studies, or inability to diagnose the etiology of the blood loss possibly requiring bleeding scan or other studies, general risk of sedation but not limited to, as well as risk of bowel prep. Plan for endoscopy at some point this admission. I will check with Dr. Brito as I am seeing this patient for him.
[2016-07-01 08:58] LABS: AB ID Interp No Ab Present
[2016-07-01] MEDS ORDERED: NON-FORMULARY ITEM (Omeprazole 20 Mg [Prilosec 20 Mg] 20 MG) PO SCH (10:00)
[2016-07-01] MEDS ORDERED: Protonix 40MG Tablet PO SCH (10:00)
[2016-07-01] MEDS ORDERED: NON-FORMULARY ITEM (Cetirizine Hcl [Zyrtec] 10 MG) PO SCH (10:00)
[2016-07-01] MEDS: Lyrica 25 MG PO SCH ×2 (10:27→23:25)
[2016-07-01] MEDS: Klor Con 10 MEQ PO SCH (10:27)
[2016-07-01] MEDS: LASIX 20 MG PO SCH (10:27)
[2016-07-01] MEDS: CLARITIN 10 MG PO SCH (10:27)
[2016-07-01] MEDS: Lyrica 50MG PO SCH ×2 (10:28→23:25)
[2016-07-01] MEDS ORDERED: PROTONIX 40 MG IV IV SCH (13:15)
--- NOTE | 2016-07-01 16:33 | PCM.NOTE ---
Date and Time: 07/01/16 1631 Subjective Assessment: doing better, received 2 units of blood transfusion - Review of Systems Constitutional: Fatigue, No Fever, No Chills Eyes: No Symptoms Ears, Nose, & Throat: No Symptoms Respiratory: No Cough, No Short Of Breath Cardiac: No Chest Pain, No Edema, No Syncope Abdominal/Gastrointestinal: No Abdominal Pain, No Nausea, No Vomiting, No Diarrhea Genitourinary Symptoms: No Dysuria Musculoskeletal: No Back Pain, No Neck Pain Skin: No Rash Neurological: No Dizziness, No Focal Weakness, No Sensory Changes Psychological: No Symptoms Endocrine: No Symptoms Hematologic/Lymphatic: No Symptoms Immunological/Allergic: No Symptoms Objective Exam General Appearance: no apparent distress, alert Neurologic Exam: alert, oriented x 3, cooperative, normal mood/affect, nml cerebellar function, sensation nml, No motor deficits Skin Exam: normal color, warm, dry Eye Exam: PERRL, EOMI, eyes nml inspection Ears, Nose, Throat Exam: normal ENT inspection, pharynx normal, moist mucous membranes Neck Exam: normal inspection, non-tender, supple, full range of motion Respiratory Exam: normal breath sounds, lungs clear, No respiratory distress Cardiovascular Exam: regular rate/rhythm, normal heart sounds Gastrointestinal/Abdomen Exam: soft, No tenderness, No mass Extremity Exam: normal inspection, normal range of motion Back Exam: normal inspection, normal range of motion, No CVA tenderness, No vertebral tenderness Pelvic Exam: deferred Rectal Exam: deferred OBJECTIVE DATA Vital Signs: Vital Signs - 24 hr Temp Pulse Resp BP Pulse Ox 07/01/16 15:16 86 16 92 L 07/01/16 12:00 98.5 F 106 H 18 141/58 96 07/01/16 11:01 98 H 18 94 L 07/01/16 08:00 98.2 F 105 H 18 125/60 100 07/01/16 05:23 97 H 21 99 07/01/16 04:00 97.8 F 97 H 23 126/68 96 07/01/16 00:01 105 H 07/01/16 00:00 97.8 F 105 H 17 117/54 100 06/30/16 20:00 97.9 F 116 H 19 130/58 99 06/30/16 19:38 98 06/30/16 17:47 102 H 18 98 06/30/16 16:58 102 H 20 98 Oxygen-Last 24 hours O2 Percentage 2 Liters = 28% O2 Percentage 2 Liters = 28% O2 Percentage 2 Liters = 28% O2 Percentage 2 Liters = 28% O2 Percentage 2 Liters = 28% Intake and Output: Intake & Output 06/29/16 06/30/16 07/01/16 07/02/16 11:59 11:59 11:59 11:59 Intake Total 838 Balance 838 Multi-Disciplinary Progress Notes: Multi-Disciplinary Progress Notes 07/01/16 13:00 (created 07/01/16 14:52) Case Management Note by Aissatou Lewis ROUNDED WITH DR. OLIVERA. DR OLIVERA EVALUATED, DISCUSSED CARE WITH PT AND PT' S FAMILY AT BEDSIDE. PT/FAMILY VERBALIZED UNDERSTANDING. REPORT THAT THEY PLAN FOR PT TO RETURN TO [place] FOR REHAB ON DISCHARGE. DECLINED ADDNL NEEDS AT PRESENT. WILL CONTINUE TO FOLLOW AND ASSESS FOR ALL DC NEEDS. Initialized on 07/01/16 14:52 - END OF NOTE Assessment/Plan (1) GI bleed Current Visit: Yes Status: Acute Qualifiers: GI bleed type/associated pathology: unspecified gastrointestinal hemorrhage type Qualified Code(s): K92.2 - Gastrointestinal hemorrhage, unspecified Assessment & Plan: Chief Complaint Diagnosis ANEMIA Admission Date Date 06/30/16 Allergies Allergy/AdvReac Type Severity Reaction Status Date / Time erythromycin base Allergy Unknown Verified 06/30/16 09:58 [Erythromycin Base] hydrocodone [Hydrocodone] Allergy Unknown Verified 06/30/16 09:58 meperidine HCl [From Demerol] Allergy Unknown Verified 06/30/16 09:58 quinine Allergy Verified 06/30/16 09:58 Vital Signs (Last 24 hours) Temp Pulse Resp BP Pulse Ox 07/01/16 15:16 86 16 92 L 07/01/16 12:00 98.5 F 106 H 18 141/58 96 07/01/16 11:01 98 H 18 94 L 07/01/16 08:00 98.2 F 105 H 18 125/60 100 07/01/16 05:23 97 H 21 99 07/01/16 04:00 97.8 F 97 H 23 126/68 96 07/01/16 00:01 105 H 07/01/16 00:00 97.8 F 105 H 17 117/54 100 06/30/16 20:00 97.9 F 116 H 19 130/58 99 06/30/16 19:38 98 06/30/16 17:47 102 H 18 98 06/30/16 16:58 102 H 20 98 Home Medications Medication Instructions Recorded Confirmed Last Taken Type Albuterol/Ipratropium 3ml Neb* 3 ml IH QID 06/30/16 06/30/16 06/30/16 History [DUONEB 0.5-3 MG/3 ml Neb] Azithromycin 250 mg [Zithromax 250 mg PO 1700 06/30/16 06/30/16 06/29/16 17: 00 History 250 MG TABLET] Furosemide 20 mg [Lasix 20 20 mg PO DAILY 06/30/16 06/30/16 06/30/16 History mg] Current Medications Generic Name Dose Route Start Last Admin Trade Name Freq PRN Reason Stop Dose Admin Acetaminophen 650 mg 06/30/16 19:51 Tylenol 325 Mg PO 07/30/16 19:50 Q4H PRN PRN PAIN AND/OR FEVER Acetaminophen 650 mg 07/01/16 07:37 Tylenol 325 Mg PO 07/31/16 07:36 Q4H PRN PRN PAIN AND/OR FEVER Albuterol/Ipratropium 3 ml 06/30/16 19:00 07/01/16 15:16 Duoneb 0.5-3 Mg/3 Ml Neb IH 07/30/16 18:59 3 ml QIDRT SUZY Administration Donepezil HCl 5 mg 06/30/16 22:00 06/30/16 21:39 Aricept 10 Mg PO 07/30/16 21:59 5 mg HS SUZY Administration Famotidine 20 mg 07/01/16 22:00 Pepcid 20 Mg Vial IV 07/31/16 21:59 Q12HT SUZY Furosemide 20 mg 07/01/16 10:00 07/01/16 10:27 Lasix 20 Mg PO 07/31/16 09:59 20 mg DAILY SUZY Administration Sodium Chloride 1,000 mls @ 100 mls/hr 06/30/16 14:23 07/01/16 14:49 Sodium Chloride 0.9% 1000 Ml IV 07/30/16 14:22 100 mls/hr .Q10H SUZY Administration Loratadine 10 mg 07/01/16 10:00 07/01/16 10:27 Claritin 10 Mg PO 07/31/16 09:59 10 mg DAILY SUZY Administration Lorazepam 0.5 mg 06/30/16 19:52 Ativan 0.5 Mg PO 07/30/16 19:51 Q8H PRN PRN ANXIETY Magnesium Hydroxide 30 ml 07/01/16 07:37 Milk Of Magnesia 30 Ml PO 07/31/16 07:36 DAILY PRN CONSTIPATION Pantoprazole Sodium 40 mg 07/01/16 13:15 07/01/16 14:34 Protonix 40 Mg Iv IV 07/31/16 13:14 40 mg Q24H SUZY Administration Potassium Chloride 10 meq 07/01/16 10:00 07/01/16 10:27 Klor Con 10 Meq PO 07/31/16 09:59 10 meq DAILY SUZY Administration Pregabalin 50 mg 07/01/16 10:00 07/01/16 10:28 Lyrica 50mg PO 07/30/16 21:59 50 mg BID SUZY Administration Pregabalin 25 mg 07/01/16 10:00 07/01/16 10:27 Lyrica 25 Mg PO 07/31/16 09:59 25 mg BID SUZY Administration Discontinued Medications Generic Name Dose Route Start Last Admin Trade Name Freq PRN Reason Stop Dose Admin Albuterol Sulfate 2.5 mg 06/30/16 16:56 Proventil 2.5 Mg/3 Ml Neb IH 07/30/16 16:55 Q4H PRN PRN SHORTNESS OF BREATH/WHEEZING Sodium Chloride 1,000 mls @ 100 mls/hr 06/30/16 12:00 06/30/16 12:15 Sodium Chloride 0.9% 1000 Ml IV 07/30/16 11:59 100 mls/hr .Q10H SUZY Administration Sodium Chloride Confirm 06/30/16 12:07 Sodium Chloride 0.9% 1000 Ml Administered 06/30/16 12:08 Dose 1,000 mls @ ud .ROUTE .STK-MED ONE Pantoprazole Sodium 40 mg 06/30/16 12:01 06/30/16 12:15 Protonix 40 Mg Iv IV 06/30/16 12:02 40 mg STAT ONE Administration Pantoprazole Sodium Confirm 06/30/16 12:07 Protonix 40 Mg Iv Administered 06/30/16 12:08 Dose 40 mg IV .STK-MED ONE Pantoprazole Sodium 40 mg 07/01/16 10:00 07/01/16 10:27 Protonix 40mg Tablet PO 07/31/16 09:59 40 mg DAILY SUZY Administration Pregabalin 75 mg 06/30/16 22:00 06/30/16 21:37 Lyrica 50mg PO 07/30/16 21:59 75 mg BID SUZY Administration Pregabalin Confirm 06/30/16 21:31 Lyrica 25 Mg Administered 06/30/16 21:32 Dose 25 mg .ROUTE .STK-MED ONE Pregabalin Confirm 06/30/16 21:32 Lyrica 50mg Administered 06/30/16 21:33 Dose 50 mg .ROUTE .STK-MED ONE Intake & Output (Last 24 hours) 06/29/16 06/30/16 07/01/16 07/02/16 11:59 11:59 11:59 11:59 Intake Total 1744 Output Total 350 Balance 1394 Weight 68.039 kg 63.6 kg Laboratory Results (Last 24 hours) 07/01/16 07/01/16 06/30/16 05:13 05:13 16:03 WBC 5.2 6.8 RBC 2.30 L 3.05 L Hgb 5.9 L* 7.7 L Hct 19.2 L 25.2 L MCV 83.5 82.6 MCH 25.6 L 25.2 L MCHC 30.7 L 30.6 L RDW 17.0 H 17.1 H Plt Count 161 184 MPV 11.6 H 11.5 H Segmented Neutrophils 72 H Band Neutrophils 1 Lymphocytes (Manual) 21 L Monocytes (Manual) 1 Eosinophils (Manual) 4 H Basophils (Manual) 1 Differential Comment ABNORMAL Platelet Estimate NORMAL Polychromasia RARE Hypochromasia 1+ Anisocytosis 1+ Sodium 143 Potassium 4.1 Chloride 109 H Carbon Dioxide 27.8 Anion Gap 10.1 BUN 25 H Creatinine 0.72 Estimated GFR > 60 Glucose 84 Calcium 7.8 L Total Bilirubin 0.2 AST 15 ALT 9 L Alkaline Phosphatase 40 L Serum Total Protein 4.1 L Albumin 1.8 L ABO Group Rh Factor Antibody Screen Crossmatch 06/30/16 06/30/16 06/30/16 12:27 12:27 12:27 WBC RBC Hgb Hct MCV MCH MCHC RDW Plt Count MPV Segmented Neutrophils Band Neutrophils Lymphocytes (Manual) Monocytes (Manual) Eosinophils (Manual) Basophils (Manual) Differential Comment Platelet Estimate Polychromasia Hypochromasia Anisocytosis Sodium Potassium Chloride Carbon Dioxide Anion Gap BUN Creatinine Estimated GFR Glucose Calcium Total Bilirubin AST ALT Alkaline Phosphatase Serum Total Protein Albumin ABO Group A Rh Factor POSITIVE Antibody Screen POSITIVE Crossmatch COMPATIBLE COMPATIBLE Orders (Last 24 hours) Category Date Time Status Admission Status Change [Change to Full Admit] ROUTINE Care 07/01/16 05:13 Active Miscellaneous Nursing Order ROUTINE Care 06/30/16 22:05 Active Miscellaneous Nursing Order ROUTINE Care 07/01/16 13:24 Active Infection Control Consult ROUTINE Cons 06/30/16 16:39 Active Night Baker/Discharge Plan ROUTINE Cons 06/30/16 16:39 Active Clear Liquid Diet 07/01/16 Breakfast Active CBC AM.LAB Lab 07/01/16 05:13 Completed CBC W DIFF Urgent Lab 06/30/16 16:03 Completed CMP AM.LAB Lab 07/01/16 05:13 Completed Manual Differential NC Urgent Lab 06/30/16 16:03 Completed Acetaminophen 325 mg [Tylenol 325 mg] Med 06/30/16 19:51 Active 650 mg PO Q4H PRN PRN Acetaminophen 325 mg [Tylenol 325 mg] Med 07/01/16 07:37 Active 650 mg PO Q4H PRN PRN Albuterol 2.5 mg/3 ml Neb [Proventil 2.5 mg/3 ml Neb Med 06/30/16 16:56 Discontinued ] 2.5 mg IH Q4H PRN PRN Albuterol/Ipratropium 3ml Neb* [DUONEB 0.5-3 MG/3 ml Med 06/30/16 19:00 Active Neb] 3 ml IH QIDRT Donepezil HCl 10 mg [Aricept 10 MG] Med 06/30/16 22:00 Active 5 mg PO HS Famotidine 20 mg Vial [Pepcid 20 MG VIAL] Med 07/01/16 22:00 Active 20 mg IV Q12HT Furosemide 20 mg [Lasix 20 mg] Med 07/01/16 10:00 Active 20 mg PO DAILY Loratadine 10 mg [Claritin 10 mg] Med 07/01/16 10:00 Active 10 mg PO DAILY Lorazepam 0.5 mg [Ativan 0.5 MG] Med 06/30/16 19:52 Active 0.5 mg PO Q8H PRN PRN Magnesium Hydroxide 30 ml [Milk of Magnesia 30 ml Med 07/01/16 07:37 Active ] 30 ml PO DAILY PRN PANTOPRAZOLE 40 mg Tablet [Protonix 40MG Tablet] Med 07/01/16 10:00 Discontinued 40 mg PO DAILY Pantoprazole 40 mg [Protonix 40 mg IV] Med 07/01/16 13:15 Active 40 mg IV Q24H Potassium Chloride 10 Meq Tab* [Klor Con 10 MEQ] Med 07/01/16 10:00 Active 10 meq PO DAILY Pregabalin 25 mg [Lyrica 25 MG] Med 06/30/16 21:31 Discontinued 25 mg .ROUTE .STK-MED ONE Pregabalin 25 mg [Lyrica 25 MG] Med 07/01/16 10:00 Active 25 mg PO BID Pregabalin 50 mg [Lyrica 50MG] Med 06/30/16 21:32 Discontinued 50 mg .ROUTE .STK-MED ONE Pregabalin 50 mg [Lyrica 50MG] Med 07/01/16 10:00 Active 50 mg PO BID Pregabalin 50 mg [Lyrica 50MG] Med 06/30/16 22:00 Discontinued 75 mg PO BID OT Screen per Nursing Assess ONCE OT 06/30/16 16:39 Completed PT Screen per Nursing Assess ONCE PT 06/30/16 16:39 Completed Oxygen NASAL CANNULA 2 lpm RT 06/30/16 16:57 Active RT Screen per Nursing Assess ONCE RT 06/30/16 16:39 Completed Respiratory Nebulizer QID RT 06/30/16 17:[address] Screen per Nursing Assess once Ther 06/30/16 16:39 Inactive Transfer Order Routine Transfer 07/01/16 15:04 Completed Patient Care Notes (Last 24 hours) 07/01/16 14:56 Nursing Note by Teagan Infante 1400 1st unit of PRBC complete pt tolerated well without difficulty Initialized on 07/01/16 14:56 - END OF NOTE 07/01/16 14:56 Nursing Note by Teagan Infante 1100 1st unit of prbc began Initialized on 07/01/16 14:56 - END OF NOTE 07/01/16 13:00 (created 07/01/16 14:52) Case Management Note by Aissatou Lewis ROUNDED WITH DR. OLIVERA. DR OLIVERA EVALUATED, DISCUSSED CARE WITH PT AND PT' S FAMILY AT BEDSIDE. PT/FAMILY VERBALIZED UNDERSTANDING. REPORT THAT THEY PLAN FOR PT TO RETURN TO [place] FOR REHAB ON DISCHARGE. DECLINED ADDNL NEEDS AT PRESENT. WILL CONTINUE TO FOLLOW AND ASSESS FOR ALL DC NEEDS. Initialized on 07/01/16 14:52 - END OF NOTE 07/01/16 06:15 Nursing Note by Azucena Steven Dr. called at 0600 to report critical hemoglobin 5.9 Dr. olivera ordered that 2 units PRBC be transfused. informed that pt has antibodies and blood will not be on site for several hours. acknowledged. order entered Initialized on 07/01/16 06:15 - END OF NOTE Code(s): K92.2 - GASTROINTESTINAL HEMORRHAGE, UNSPECIFIED (2) Abdominal pain Current Visit: Yes Status: Resolved Qualifiers: Abdominal location: generalized Qualified Code(s): R10.84 - Generalized abdominal pain Code(s): R10.9 - UNSPECIFIED ABDOMINAL PAIN
[2016-07-01] MEDS: Pepcid 20 MG VIAL IV SCH (23:25)
[2016-07-01] MEDS: Aricept 10 MG PO SCH (23:25)
[2016-07-01] MEDS: Ativan 0.5 MG PO PRN (23:25)
[2016-07-02] MEDS: Sodium Chloride 0.9% 1000 ML 1,000 ML IV SCH (03:25)
[2016-07-02] MEDS ORDERED: Zofran 4 MG/2 ML VIAL IV PRN (06:14)
[2016-07-02] MEDS: Lactated Ringers 1,000 ML IV SCH ×2 (06:20→19:44)
[2016-07-02 06:33] LABS: Mean Corpuscular Hemoglobin 27.7 pg (26-32); Mean Platelet Volume 10.7 fl (6-9.5); Platelet Count 219 K/mm3 (150-450); Red Blood Count 2.38 M/mm3 (4.1-5.4); Red Cell Distribution Width 15.9 % (11.5-14.0); White Blood Count 13.3 K/mm3 (4.0-10.5)
[2016-07-02] MEDS: Ativan 0.5 MG PO PRN ×2 (06:53→22:38)
[2016-07-02] MEDS: DUONEB 0.5-3 MG/3 ml Neb IH SCH ×4 (07:19→17:28)
[2016-07-02] MEDS ORDERED: Sodium Chloride 0.9% 500 ML 500 ML IV ONE (07:24)
--- NOTE | 2016-07-02 07:30 | PCM.NOTE ---
Date and Time: 07/02/16727 Subjective Assessment: patient has another episode of hemetemesis and lower GI bleed, Hgb 6.6 - Review of Systems Constitutional: Lethargy, Weakness, No Fever, No Chills Eyes: No Symptoms Ears, Nose, & Throat: No Symptoms Respiratory: No Cough, No Short Of Breath Cardiac: No Chest Pain, No Edema, No Syncope Abdominal/Gastrointestinal: No Abdominal Pain, No Nausea, No Vomiting, No Diarrhea Genitourinary Symptoms: No Dysuria Musculoskeletal: No Back Pain, No Neck Pain Skin: No Rash Neurological: No Dizziness, No Focal Weakness, No Sensory Changes Psychological: No Symptoms Endocrine: No Symptoms Hematologic/Lymphatic: No Symptoms Immunological/Allergic: No Symptoms Objective Exam General Appearance: mild distress, alert Neurologic Exam: alert, oriented x 3, cooperative, No motor deficits Skin Exam: warm, dry, pale Eye Exam: PERRL, EOMI, eyes nml inspection Ears, Nose, Throat Exam: normal ENT inspection, pharynx normal, moist mucous membranes Neck Exam: normal inspection, non-tender, supple, full range of motion Respiratory Exam: normal breath sounds, lungs clear, No respiratory distress Cardiovascular Exam: regular rate/rhythm, normal heart sounds Gastrointestinal/Abdomen Exam: soft, No tenderness, No mass Extremity Exam: normal inspection, normal range of motion Back Exam: normal inspection, normal range of motion, No CVA tenderness, No vertebral tenderness Pelvic Exam: deferred Rectal Exam: deferred OBJECTIVE DATA Vital Signs: Vital Signs - 24 hr Temp Pulse Resp BP Pulse Ox 07/02/16 07:21 129 H 26 H 93 L 07/02/16 07:17 98.1 F 138 H 22 117/54 93 L 07/02/16 04:00 98.1 F 113 H 20 131/60 95 07/02/16 00:00 98.1 F 98 H 16 139/76 96 07/01/16 20:00 97.9 F 123 H 17 161/80 96 07/01/16 18:58 110 H 18 89 L 07/01/16 16:42 98 F 86 18 142/70 90 L 07/01/16 15:16 86 16 92 L 07/01/16 12:00 98.5 F 106 H 18 141/58 96 07/01/16 11:01 98 H 18 94 L 07/01/16 08:00 98.2 F 105 H 18 125/60 100 Oxygen-Last 24 hours O2 Percentage 2 Liters = 28% O2 Percentage 2 Liters = 28% O2 Percentage 2 Liters = 28% O2 Percentage 2 Liters = 28% O2 Percentage 2 Liters = 28% O2 Percentage 2 Liters = 28% O2 Percentage 2 Liters = 28% Pain Assessment - Last Documented Pain Intensity 0 Pain Scale Used 0-10 Pain Scale Intake and Output: Intake & Output 06/29/16 06/30/16 07/01/16 07/02/16 11:59 11:59 11:59 11:59 Intake Total 838 2942 Balance 838 2942 Lab Results: Accuchecks Date 07/02/16 Time 07:21 Accucheck Value: 133 Lab Results-Last 24 Hours 07/01/16 07/02/16 Range/Units 19:25 06:29 WBC 13.3 H (4.0-10.5) K/mm3 RBC 2.38 L (4.1-5.4) M/mm3 Hgb 8.8 L 6.6 L* (12.0-16.0) gm/dl Hct 26.4 L 20.0 L (35-47) % MCV 84.0 (78-100) fl MCH 27.7 (26-32) pg MCHC 33.0 (32-36) g/dl RDW 15.9 H (11.5-14.0) % Plt Count 219 (150-450) K/mm3 MPV 10.7 H (6-9.5) fl Multi-Disciplinary Progress Notes: Multi-Disciplinary Progress Notes 07/01/16 13:00 (created 07/01/16 14:52) Case Management Note by Aissatou Lewis ROUNDED WITH DR. JUAREZ. DR JUAREZ EVALUATED, DISCUSSED CARE WITH PT AND PT' S FAMILY AT BEDSIDE. PT/FAMILY VERBALIZED UNDERSTANDING. REPORT THAT THEY PLAN FOR PT TO RETURN TO [facility] FOR REHAB ON DISCHARGE. DECLINED ADDNL NEEDS AT PRESENT. WILL CONTINUE TO FOLLOW AND ASSESS FOR ALL DC NEEDS. Initialized on 07/01/16 14:52 - END OF NOTE Assessment/Plan (1) GI bleed Current Visit: Yes Status: Acute Qualifiers: GI bleed type/associated pathology: gastrointestinal hemorrhage with hematemesis Qualified Code(s): K92.0 - Hematemesis Assessment & Plan: Last Vital Signs Temp 98.1 F 07/02/16 07:17 Pulse 129 H 07/02/16 07:21 Resp 26 H 07/02/16 07:21 BP 117/54 07/02/16 07:17 Pulse Ox 93 L 07/02/16 07:21 Allergies erythromycin base [Erythromycin Base] Allergy (Unknown, Verified 06/30/16 09:58) hydrocodone [Hydrocodone] Allergy (Unknown, Verified 06/30/16 09:58) meperidine HCl [From Demerol] Allergy (Unknown, Verified 06/30/16 09:58) quinine Allergy (Verified 06/30/16 09:58) Active Medications Acetaminophen (Tylenol 325 Mg) 650 mg PO Q4H PRN PRN PRN Reason: PAIN AND/OR FEVER Stop: 07/30/16 19:50 Acetaminophen (Tylenol 325 Mg) 650 mg PO Q4H PRN PRN PRN Reason: PAIN AND/OR FEVER Stop: 07/31/16 07:36 Albuterol/Ipratropium (Duoneb 0.5-3 Mg/3 Ml Neb) 3 ml IH QIDRT [facility] Stop: 07/30/16 18:59 Last Admin: 07/02/16 07:19 Dose: 3 ml Donepezil HCl (Aricept 10 Mg) 5 mg PO HS SUZY Stop: 07/30/16 21:59 Last Admin: 07/01/16 23:25 Dose: 5 mg Famotidine (Pepcid 20 Mg Vial) 20 mg IV Q12HT SUZY Stop: 07/31/16 21:59 Last Admin: 07/01/16 23:25 Dose: 20 mg Furosemide (Lasix 20 Mg) 20 mg PO DAILY SUZY Stop: 07/31/16 09:59 Last Admin: 07/01/16 10:27 Dose: 20 mg Sodium Chloride (Sodium Chloride 0.9% 1000 Ml) 1,000 mls @ 100 mls/hr IV .Q10H SUZY Stop: 07/30/16 14:22 Last Admin: 07/02/16 03:25 Dose: 100 mls/hr Lactated Ringer's (Lactated Ringers) 1,000 mls @ 150 mls/hr IV .Q6H40M SUZY Stop: 08/01/16 06:29 Last Admin: 07/02/16 06:20 Dose: 150 mls/hr Loratadine (Claritin 10 Mg) 10 mg PO DAILY [facility] Stop: 07/31/16 09:59 Last Admin: 07/01/16 10:27 Dose: 10 mg Lorazepam (Ativan 0.5 Mg) 0.5 mg PO Q8H PRN PRN PRN Reason: ANXIETY Stop: 07/30/16 19:51 Last Admin: 07/02/16 06:53 Dose: 0.5 mg Magnesium Hydroxide (Milk Of Magnesia 30 Ml) 30 ml PO DAILY PRN PRN Reason: CONSTIPATION Stop: 07/31/16 07:36 Ondansetron HCl (Zofran 4 Mg/2 Ml Vial) 4 mg IV Q4H PRN PRN PRN Reason: NAUSEA/VOMITING Stop: 08/01/16 06:13 Last Admin: 07/02/16 06:20 Dose: 4 mg Pantoprazole Sodium (Protonix 40 Mg Iv) 40 mg IV Q24H [facility] Stop: 07/31/16 13:14 Last Admin: 07/01/16 14:34 Dose: 40 mg Potassium Chloride (Klor Con 10 Meq) 10 meq PO DAILY [facility] Stop: 07/31/16 09:59 Last Admin: 07/01/16 10:27 Dose: 10 meq Pregabalin (Lyrica 50mg) 50 mg PO BID [facility] Stop: 07/30/16 21:59 Last Admin: 07/01/16 23:25 Dose: 50 mg Pregabalin (Lyrica 25 Mg) 25 mg PO BID [facility] Stop: 07/31/16 09:59 Last Admin: 07/01/16 23:25 Dose: 25 mg Intake & Output 07/01/16 07/02/16 11:59 11:59 Intake Total 1744 2942 Output Total 350 Balance 1394 2942 Weight 63.6 kg Orders 07/01/16 07:37 Acetaminophen 325 mg [Tylenol 325 mg] 650 mg PO Q4H PRN PRN Magnesium Hydroxide 30 ml [Milk of Magnesia 30 ml] 30 ml PO DAILY PRN 07/01/16 10:00 Furosemide 20 mg [Lasix 20 mg] 20 mg PO DAILY Loratadine 10 mg [Claritin 10 mg] 10 mg PO DAILY Potassium Chloride 10 Meq Tab* [Klor Con 10 MEQ] 10 meq PO DAILY Pregabalin 25 mg [Lyrica 25 MG] 25 mg PO BID Pregabalin 50 mg [Lyrica 50MG] 50 mg PO BID 07/01/16 13:15 Pantoprazole 40 mg [Protonix 40 mg IV] 40 mg IV Q24H 07/01/16 13:24 Miscellaneous Nursing Order ROUTINE 07/01/16 22:00 Famotidine 20 mg Vial [Pepcid 20 MG VIAL] 20 mg IV Q12HT 07/02/16 06:00 CROSS MATCH (PRBC) Routine 07/02/16 06:14 Ondansetron HCl 4 mg/2 ml [Zofran 4 MG/2 ML VIAL] 4 mg IV Q4H PRN PRN 07/02/16 06:16 Miscellaneous Nursing Order ROUTINE 07/02/16 06:29 CROSS MATCH (PRBC) Routine 07/02/16 06:30 Ringers Solution,Lactated [Lactated Ringers] 1,000 ml IV 150 mls/hr Lab Tests 06/30/16 06/30/16 06/30/16 12:27 12:27 12:27 WBC RBC Hgb Hct MCV MCH MCHC RDW Plt Count MPV ABO Group A Rh Factor POSITIVE Antibody Screen POSITIVE Crossmatch COMPATIBLE COMPATIBLE 07/01/16 07/02/16 07/02/16 19:25 06:00 06:29 WBC 13.3 H RBC 2.38 L Hgb 8.8 L 6.6 L* Hct 26.4 L 20.0 L MCV 84.0 MCH 27.7 MCHC 33.0 RDW 15.9 H Plt Count 219 MPV 10.7 H ABO Group Rh Factor Antibody Screen Crossmatch COMPATIBLE Chief Complaint Diagnosis ANEMIA Admission Date Date 06/30/16 Allergies Allergy/AdvReac Type Severity Reaction Status Date / Time erythromycin base Allergy Unknown Verified 06/30/16 09:58 [Erythromycin Base] hydrocodone [Hydrocodone] Allergy Unknown Verified 06/30/16 09:58 meperidine HCl [From Demerol] Allergy Unknown Verified 06/30/16 09:58 quinine Allergy Verified 06/30/16 09:58 Vital Signs (Last 24 hours) Temp Pulse Resp BP Pulse Ox 07/02/16 07:21 129 H 26 H 93 L 07/02/16 07:17 98.1 F 138 H 22 117/54 93 L 07/02/16 04:00 98.1 F 113 H 20 131/60 95 07/02/16 00:00 98.1 F 98 H 16 139/76 96 07/01/16 20:00 97.9 F 123 H 17 161/80 96 07/01/16 18:58 110 H 18 89 L 07/01/16 16:42 98 F 86 18 142/70 90 L 07/01/16 15:16 86 16 92 L 07/01/16 12:00 98.5 F 106 H 18 141/58 96 07/01/16 11:01 98 H 18 94 L 07/01/16 08:00 98.2 F 105 H 18 125/60 100 Home Medications Medication Instructions Recorded Confirmed Last Taken Type Albuterol/Ipratropium 3ml Neb* 3 ml IH QID 06/30/16 06/30/16 06/30/16 History [DUONEB 0.5-3 MG/3 ml Neb] Azithromycin 250 mg [Zithromax 250 mg PO 1700 06/30/16 06/30/16 06/29/16 17: 00 History 250 MG TABLET] Furosemide 20 mg [Lasix 20 20 mg PO DAILY 06/30/16 06/30/16 06/30/16 History mg] Current Medications Generic Name Dose Route Start Last Admin Trade Name Freq PRN Reason Stop Dose Admin Acetaminophen 650 mg 06/30/16 19:51 Tylenol 325 Mg PO 07/30/16 19:50 Q4H PRN PRN PAIN AND/OR FEVER Acetaminophen 650 mg 07/01/16 07:37 Tylenol 325 Mg PO 07/31/16 07:36 Q4H PRN PRN PAIN AND/OR FEVER Albuterol/Ipratropium 3 ml 06/30/16 19:00 07/02/16 07:19 Duoneb 0.5-3 Mg/3 Ml Neb IH 07/30/16 18:59 3 ml QIDRT SUZY Administration Donepezil HCl 5 mg 06/30/16 22:00 07/01/16 23:25 Aricept 10 Mg PO 07/30/16 21:59 5 mg HS SUZY Administration Famotidine 20 mg 07/01/16 22:00 07/01/16 23:25 Pepcid 20 Mg Vial IV 07/31/16 21:59 20 mg Q12HT SUZY Administration Furosemide 20 mg 07/01/16 10:00 07/01/16 10:27 Lasix 20 Mg PO 07/31/16 09:59 20 mg DAILY SUZY Administration Sodium Chloride 1,000 mls @ 100 mls/hr 06/30/16 14:23 07/02/16 03:25 Sodium Chloride 0.9% 1000 Ml IV 07/30/16 14:22 100 mls/hr .Q10H SUZY Administration Lactated Ringer's 1,000 mls @ 150 mls/hr 07/02/16 06:30 07/02/16 06:20 Lactated Ringers IV 08/01/16 06:29 150 mls/hr .Q6H40M SUZY Administration Loratadine 10 mg 07/01/16 10:00 07/01/16 10:27 Claritin 10 Mg PO 07/31/16 09:59 10 mg DAILY SUZY Administration Lorazepam 0.5 mg 06/30/16 19:52 07/02/16 06:53 Ativan 0.5 Mg PO 07/30/16 19:51 0.5 mg Q8H PRN PRN Administration ANXIETY Magnesium Hydroxide 30 ml 07/01/16 07:37 Milk Of Magnesia 30 Ml PO 07/31/16 07:36 DAILY PRN CONSTIPATION Ondansetron HCl 4 mg 07/02/16 06:14 07/02/16 06:20 Zofran 4 Mg/2 Ml Vial IV 08/01/16 06:13 4 mg Q4H PRN PRN Administration NAUSEA/VOMITING Pantoprazole Sodium 40 mg 07/01/16 13:15 07/01/16 14:34 Protonix 40 Mg Iv IV 07/31/16 13:14 40 mg Q24H SUZY Administration Potassium Chloride 10 meq 07/01/16 10:00 07/01/16 10:27 Klor Con 10 Meq PO 07/31/16 09:59 10 meq DAILY SUZY Administration Pregabalin 50 mg 07/01/16 10:00 07/01/16 23:25 Lyrica 50mg PO 07/30/16 21:59 50 mg BID SUZY Administration Pregabalin 25 mg 07/01/16 10:00 07/01/16 23:25 Lyrica 25 Mg PO 07/31/16 09:59 25 mg BID SUZY Administration Discontinued Medications Generic Name Dose Route Start Last Admin Trade Name Freq PRN Reason Stop Dose Admin Albuterol Sulfate 2.5 mg 06/30/16 16:56 Proventil 2.5 Mg/3 Ml Neb IH 07/30/16 16:55 Q4H PRN PRN SHORTNESS OF BREATH/WHEEZING Sodium Chloride 1,000 mls @ 100 mls/hr 06/30/16 12:00 06/30/16 12:15 Sodium Chloride 0.9% 1000 Ml IV 07/30/16 11:59 100 mls/hr .Q10H SUZY Administration Sodium Chloride Confirm 06/30/16 12:07 Sodium Chloride 0.9% 1000 Ml Administered 06/30/16 12:08 Dose 1,000 mls @ ud .ROUTE .STK-MED ONE Sodium Chloride Confirm 07/02/16 07:24 Sodium Chloride 0.9% 500 Ml Administered 07/02/16 07:25 Dose 500 mls @ ud IV .STK-MED ONE Pantoprazole Sodium 40 mg 06/30/16 12:01 06/30/16 12:15 Protonix 40 Mg Iv IV 06/30/16 12:02 40 mg STAT ONE Administration Pantoprazole Sodium Confirm 06/30/16 12:07 Protonix 40 Mg Iv Administered 06/30/16 12:08 Dose 40 mg IV .STK-MED ONE Pantoprazole Sodium 40 mg 07/01/16 10:00 07/01/16 10:27 Protonix 40mg Tablet PO 07/31/16 09:59 40 mg DAILY SUZY Administration Pregabalin 75 mg 06/30/16 22:00 06/30/16 21:37 Lyrica 50mg PO 07/30/16 21:59 75 mg BID SUZY Administration Pregabalin Confirm 06/30/16 21:31 Lyrica 25 Mg Administered 06/30/16 21:32 Dose 25 mg .ROUTE .STK-MED ONE Pregabalin Confirm 06/30/16 21:32 Lyrica 50mg Administered 06/30/16 21:33 Dose 50 mg .ROUTE .STK-MED ONE Intake & Output (Last 24 hours) 06/29/16 06/30/16 07/01/16 07/02/16 11:59 11:59 11:59 11:59 Intake Total 1744 2942 Output Total 350 Balance 1394 2942 Weight 68.039 kg 63.6 kg Laboratory Results (Last 24 hours) 07/02/16 07/02/16 07/01/16 06:29 06:00 19:25 WBC 13.3 H RBC 2.38 L Hgb 6.6 L* 8.8 L Hct 20.0 L 26.4 L MCV 84.0 MCH 27.7 MCHC 33.0 RDW 15.9 H Plt Count 219 MPV 10.7 H ABO Group Rh Factor Antibody Screen Crossmatch COMPATIBLE 06/30/16 06/30/16 06/30/16 12:27 12:27 12:27 WBC RBC Hgb Hct MCV MCH MCHC RDW Plt Count MPV ABO Group A Rh Factor POSITIVE Antibody Screen POSITIVE Crossmatch COMPATIBLE COMPATIBLE Orders (Last 24 hours) Category Date Time Status Consent,Obtain ROUTINE Care 07/01/16 18:32 Active Miscellaneous Nursing Order ROUTINE Care 07/01/16 13:24 Active Miscellaneous Nursing Order ROUTINE Care 07/02/16 06:16 Active Clear Liquid Diet 07/01/16 Breakfast Completed NPO Diet 07/02/16 00:01 Active CBC Routine Lab 07/02/16 06:29 Completed CROSS MATCH (PRBC) Routine Lab 07/02/16 06:00 Received CROSS MATCH (PRBC) Routine Lab 07/02/16 06:29 Received HEMOGLOBIN AND HEMATOCRIT Urgent Lab 07/01/16 19:25 Completed Acetaminophen 325 mg [Tylenol 325 mg] Med 07/01/16 07:37 Active 650 mg PO Q4H PRN PRN Famotidine 20 mg Vial [Pepcid 20 MG VIAL] Med 07/01/16 22:00 Active 20 mg IV Q12HT Furosemide 20 mg [Lasix 20 mg] Med 07/01/16 10:00 Active 20 mg PO DAILY Loratadine 10 mg [Claritin 10 mg] Med 07/01/16 10:00 Active 10 mg PO DAILY Magnesium Hydroxide 30 ml [Milk of Magnesia 30 ml Med 07/01/16 07:37 Active ] 30 ml PO DAILY PRN NaCl 0.9% 500 ml [Sodium Chloride 0.9% 500 ML] 500 ml Med 07/02/16 07:24 Discontinued IV UD Ondansetron HCl 4 mg/2 ml [Zofran 4 MG/2 ML VIAL] Med 07/02/16 06:14 Ordered 4 mg IV Q4H PRN PRN PANTOPRAZOLE 40 mg Tablet [Protonix 40MG Tablet] Med 07/01/16 10:00 Discontinued 40 mg PO DAILY Pantoprazole 40 mg [Protonix 40 mg IV] Med 07/01/16 13:15 Active 40 mg IV Q24H Potassium Chloride 10 Meq Tab* [Klor Con 10 MEQ] Med 07/01/16 10:00 Active 10 meq PO DAILY Pregabalin 25 mg [Lyrica 25 MG] Med 07/01/16 10:00 Active 25 mg PO BID Pregabalin 50 mg [Lyrica 50MG] Med 07/01/16 10:00 Active 50 mg PO BID Ringers Solution,Lactated [Lactated Ringers] 1,000 ml Med 07/02/16 06:30 Ordered IV 150 mls/hr Transfer Order Routine Transfer 07/01/16 15:04 Completed Patient Care Notes (Last 24 hours) 07/02/16 05:28 Nursing Note by Radha Jones Dr. called to update on pt status. Pt passing "copious" amounts of bloody stool and is pale and lethargic. Pt post 2units PRB earlier this evening and post HBG was 8.8 Dr. Chong gave new order for "CBC at 0800 and 2 more units of PRB type/cross match on hold." Pt vitals are wnls' for pt at this time. Pt a/ox4. OR called and Dr. Toro left a message of pt status as welll. Will cont to monitor Initialized on 07/02/16 05:28 - END OF NOTE 07/01/16 23:28 Nursing Note by Radha Jones HS meds late d/t code blue on floor. Initialized on 07/01/16 23:28 - END OF NOTE 07/01/16 19:23 Nursing Note by ILANA RAMOS Charge to patient for one continu-shruthi w/o filter. Initialized on 07/01/16 19:23 - END OF NOTE 07/01/16 14:56 Nursing Note by Teagan Infante 1400 1st unit of PRBC complete pt tolerated well without difficulty Initialized on 07/01/16 14:56 - END OF NOTE 07/01/16 14:56 Nursing Note by Teagan Infante 1100 1st unit of prbc began Initialized on 07/01/16 14:56 - END OF NOTE 07/01/16 13:00 (created 07/01/16 14:52) Case Management Note by Aissatou Lewis ROUNDED WITH DR. JUAREZ. DR JUAREZ EVALUATED, DISCUSSED CARE WITH PT AND PT' S FAMILY AT BEDSIDE. PT/FAMILY VERBALIZED UNDERSTANDING. REPORT THAT THEY PLAN FOR PT TO RETURN TO [facility] FOR REHAB ON DISCHARGE. DECLINED ADDNL NEEDS AT PRESENT. WILL CONTINUE TO FOLLOW AND ASSESS FOR ALL DC NEEDS. Initialized on 07/01/16 14:52 - END OF NOTE Code(s): K92.2 - GASTROINTESTINAL HEMORRHAGE, UNSPECIFIED (2) Abdominal pain Current Visit: Yes Status: Resolved Qualifiers: Abdominal location: generalized Qualified Code(s): R10.84 - Generalized abdominal pain Code(s): R10.9 - UNSPECIFIED ABDOMINAL PAIN
[2016-07-02] MEDS: CLARITIN 10 MG PO SCH (09:19)
[2016-07-02] MEDS: Klor Con 10 MEQ PO SCH (09:20)
[2016-07-02] MEDS: Lyrica 25 MG PO SCH ×2 (09:20→22:41)
[2016-07-02] MEDS: Lyrica 50MG PO SCH ×2 (09:20→22:41)
[2016-07-02] MEDS: LASIX 20 MG PO SCH (09:20)
[2016-07-02] MEDS: Reglan 10 MG/2 ML IV SCH ×3 (10:06→22:39)
[2016-07-02] MEDS: Pepcid 20 MG VIAL IV SCH ×2 (10:06→22:41)
[2016-07-02] MEDS: PROTONIX 40 MG IV*** 80 MG in Sodium Chloride 0.9% 500 ML 500 ML IV SCH ×2 (10:50→21:05)
[2016-07-02] MEDS: Aricept 10 MG PO SCH (22:37)
[2016-07-03] MEDS: Lactated Ringers 1,000 ML IV SCH (03:27)
[2016-07-03] MEDS: DUONEB 0.5-3 MG/3 ml Neb IH SCH ×3 (06:31→15:14)
--- NOTE | 2016-07-03 07:28 | PCM.NOTE ---
Date and Time: 07/03/16726 Subjective Assessment: doing better, no hemetemesis,Hgb 9.1 - Review of Systems Constitutional: Weakness, No Fever, No Chills Eyes: No Symptoms Ears, Nose, & Throat: No Symptoms Respiratory: No Cough, No Short Of Breath Cardiac: No Chest Pain, No Edema, No Syncope Abdominal/Gastrointestinal: No Abdominal Pain, No Nausea, No Vomiting, No Diarrhea Genitourinary Symptoms: No Dysuria Musculoskeletal: No Back Pain, No Neck Pain Skin: No Rash Neurological: No Dizziness, No Focal Weakness, No Sensory Changes Psychological: No Symptoms Endocrine: No Symptoms Hematologic/Lymphatic: No Symptoms Immunological/Allergic: No Symptoms Objective Exam General Appearance: no apparent distress, alert Neurologic Exam: alert, oriented x 3, cooperative, normal mood/affect, nml cerebellar function, sensation nml, No motor deficits Skin Exam: normal color, warm, dry Eye Exam: PERRL, EOMI, eyes nml inspection Ears, Nose, Throat Exam: normal ENT inspection, pharynx normal, moist mucous membranes Neck Exam: normal inspection, non-tender, supple, full range of motion Respiratory Exam: normal breath sounds, lungs clear, No respiratory distress Cardiovascular Exam: regular rate/rhythm, normal heart sounds Gastrointestinal/Abdomen Exam: soft, No tenderness, No mass Extremity Exam: normal inspection, normal range of motion Back Exam: normal inspection, normal range of motion, No CVA tenderness, No vertebral tenderness Pelvic Exam: deferred Rectal Exam: deferred OBJECTIVE DATA Vital Signs: Vital Signs - 24 hr Temp Pulse Resp BP Pulse Ox 07/03/16 06:32 109 H 22 95 07/03/16 04:00 97.7 F 96 H 16 98/55 99 07/03/16 00:00 98.0 F 96 H 16 96/60 98 07/02/16 20:00 99.2 F 126 H 18 100/55 99 07/02/16 17:29 123 H 20 97 07/02/16 15:37 97.9 F 126 H 20 112/58 95 07/02/16 14:55 123 H 20 88 L 07/02/16 11:17 97.8 F 136 H 20 114/58 92 L 07/02/16 10:57 135 H 24 92 L Oxygen-Last 24 hours O2 Percentage 2 Liters = 28% O2 Percentage 3 Liters = 32% O2 Percentage 3 Liters = 32% Pain Assessment - Last Documented Pain Intensity 8 Pain Scale Used 0-10 Pain Scale,FLACC Intake and Output: Intake & Output 06/30/16 07/01/16 07/02/16 07/03/16 11:59 11:59 11:59 11:59 Intake Total 838 2942 2801 Output Total 1100 Balance 838 2942 1701 Lab Results: Lab Results-Last 24 Hours 07/02/16 07/02/16 07/02/16 Range/Units 06:00 06:00 06:29 Hgb (12.0-16.0) gm/dl Hct (35-47) % Crossmatch COMPATIBLE COMPATIBLE COMPATIBLE (COMPATIBLE) 07/02/16 07/02/16 07/02/16 Range/Units 07:00 07:00 07:00 Hgb (12.0-16.0) gm/dl Hct (35-47) % Crossmatch COMPATIBLE COMPATIBLE COMPATIBLE (COMPATIBLE) 07/02/16 Range/Units 14:54 Hgb 9.8 L (12.0-16.0) gm/dl Hct 29.4 L (35-47) % Crossmatch (COMPATIBLE) Radiology Exams: Radiology Procedures Category Date Time Status CHEST 1 VIEW (PORTABLE) Routine Exams 07/02/16 16:56 Taken Assessment/Plan (1) GI bleed Current Visit: Yes Status: Acute Qualifiers: GI bleed type/associated pathology: gastrointestinal hemorrhage with hematemesis Qualified Code(s): K92.0 - Hematemesis Assessment & Plan: Chief Complaint Diagnosis ANEMIA Admission Date Date 06/30/16 Allergies Allergy/AdvReac Type Severity Reaction Status Date / Time erythromycin base Allergy Unknown Verified 06/30/16 09:58 [Erythromycin Base] hydrocodone [Hydrocodone] Allergy Unknown Verified 06/30/16 09:58 meperidine HCl [From Demerol] Allergy Unknown Verified 06/30/16 09:58 quinine Allergy Verified 06/30/16 09:58 Vital Signs (Last 24 hours) Temp Pulse Resp BP Pulse Ox 07/03/16 06:32 109 H 22 95 07/03/16 04:00 97.7 F 96 H 16 98/55 99 07/03/16 00:00 98.0 F 96 H 16 96/60 98 07/02/16 20:00 99.2 F 126 H 18 100/55 99 07/02/16 17:29 123 H 20 97 07/02/16 15:37 97.9 F 126 H 20 112/58 95 07/02/16 14:55 123 H 20 88 L 07/02/16 11:17 97.8 F 136 H 20 114/58 92 L 07/02/16 10:57 135 H 24 92 L Home Medications Medication Instructions Recorded Confirmed Last Taken Type Albuterol/Ipratropium 3ml Neb* 3 ml IH QID 06/30/16 06/30/16 06/30/16 History [DUONEB 0.5-3 MG/3 ml Neb] Azithromycin 250 mg [Zithromax 250 mg PO 1700 06/30/16 06/30/16 06/29/16 17: 00 History 250 MG TABLET] Furosemide 20 mg [Lasix 20 20 mg PO DAILY 06/30/16 06/30/16 06/30/16 History mg] Current Medications Generic Name Dose Route Start Last Admin Trade Name Freq PRN Reason Stop Dose Admin Acetaminophen 650 mg 06/30/16 19:51 07/02/16 11:50 Tylenol 325 Mg PO 07/30/16 19:50 650 mg Q4H PRN PRN Administration PAIN AND/OR FEVER Acetaminophen 650 mg 07/01/16 07:37 Tylenol 325 Mg PO 07/31/16 07:36 Q4H PRN PRN PAIN AND/OR FEVER Albuterol/Ipratropium 3 ml 06/30/16 19:00 07/03/16 06:31 Duoneb 0.5-3 Mg/3 Ml Neb IH 07/30/16 18:59 3 ml QIDRT SUZY Administration Donepezil HCl 5 mg 06/30/16 22:00 07/02/16 22:37 Aricept 10 Mg PO 07/30/16 21:59 5 mg HS SUZY Administration Famotidine 20 mg 07/01/16 22:00 07/02/16 22:41 Pepcid 20 Mg Vial IV 07/31/16 21:59 20 mg Q12HT SUZY Administration Furosemide 20 mg 07/01/16 10:00 07/02/16 09:20 Lasix 20 Mg PO 07/31/16 09:59 Not Given DAILY SUZY Sodium Chloride 1,000 mls @ 100 mls/hr 06/30/16 14:23 07/02/16 03:25 Sodium Chloride 0.9% 1000 Ml IV 07/30/16 14:22 100 mls/hr .Q10H SUZY Administration Lactated Ringer's 1,000 mls @ 150 mls/hr 07/02/16 06:30 07/03/16 03:27 Lactated Ringers IV 08/01/16 06:29 150 mls/hr .Q6H40M SUZY Administration Pantoprazole Sodium 80 mg/ 500 mls @ 50 mls/hr 07/02/16 08:45 07/02/16 21:05 Sodium Chloride IV 08/01/16 08:44 50 mls/hr .Q10H SUZY Administration Loratadine 10 mg 07/01/16 10:00 07/02/16 09:19 Claritin 10 Mg PO 07/31/16 09:59 Not Given DAILY SUZY Lorazepam 0.5 mg 06/30/16 19:52 07/02/16 22:38 Ativan 0.5 Mg PO 07/30/16 19:51 0.5 mg Q8H PRN PRN Administration ANXIETY Magnesium Hydroxide 30 ml 07/01/16 07:37 Milk Of Magnesia 30 Ml PO 07/31/16 07:36 DAILY PRN CONSTIPATION Metoclopramide HCl 5 mg 07/02/16 10:00 07/02/16 22:39 Reglan 10 Mg/2 Ml IV 08/01/16 09:59 5 mg TID SUZY Administration Ondansetron HCl 4 mg 07/02/16 06:14 07/02/16 06:20 Zofran 4 Mg/2 Ml Vial IV 08/01/16 06:13 4 mg Q4H PRN PRN Administration NAUSEA/VOMITING Potassium Chloride 10 meq 07/01/16 10:00 07/02/16 09:20 Klor Con 10 Meq PO 07/31/16 09:59 Not Given DAILY SUZY Pregabalin 50 mg 07/01/16 10:00 07/02/16 22:41 Lyrica 50mg PO 07/30/16 21:59 50 mg BID SUZY Administration Pregabalin 25 mg 07/01/16 10:00 07/02/16 22:41 Lyrica 25 Mg PO 07/31/16 09:59 25 mg BID SUZY Administration Discontinued Medications Generic Name Dose Route Start Last Admin Trade Name Freoralia PRN Reason Stop Dose Admin Albuterol Sulfate 2.5 mg 06/30/16 16:56 Proventil 2.5 Mg/3 Ml Neb IH 07/30/16 16:55 Q4H PRN PRN SHORTNESS OF BREATH/WHEEZING Sodium Chloride 1,000 mls @ 100 mls/hr 06/30/16 12:00 06/30/16 12:15 Sodium Chloride 0.9% 1000 Ml IV 07/30/16 11:59 100 mls/hr .Q10H SUZY Administration Sodium Chloride Confirm 06/30/16 12:07 Sodium Chloride 0.9% 1000 Ml Administered 06/30/16 12:08 Dose 1,000 mls @ ud .ROUTE .STK-MED ONE Sodium Chloride Confirm 07/02/16 07:24 Sodium Chloride 0.9% 500 Ml Administered 07/02/16 07:25 Dose 500 mls @ ud IV .STK-MED ONE Pantoprazole Sodium 40 mg 06/30/16 12:01 06/30/16 12:15 Protonix 40 Mg Iv IV 06/30/16 12:02 40 mg STAT ONE Administration Pantoprazole Sodium Confirm 06/30/16 12:07 Protonix 40 Mg Iv Administered 06/30/16 12:08 Dose 40 mg IV .STK-MED ONE Pantoprazole Sodium 40 mg 07/01/16 10:00 07/01/16 10:27 Protonix 40mg Tablet PO 07/31/16 09:59 40 mg DAILY SUZY Administration Pantoprazole Sodium 40 mg 07/01/16 13:15 07/01/16 14:34 Protonix 40 Mg Iv IV 07/31/16 13:14 40 mg Q24H SUZY Administration Pregabalin 75 mg 06/30/16 22:00 06/30/16 21:37 Lyrica 50mg PO 07/30/16 21:59 75 mg BID SUZY Administration Pregabalin Confirm 06/30/16 21:31 Lyrica 25 Mg Administered 06/30/16 21:32 Dose 25 mg .ROUTE .STK-MED ONE Pregabalin Confirm 06/30/16 21:32 Lyrica 50mg Administered 06/30/16 21:33 Dose 50 mg .ROUTE .STK-MED ONE Intake & Output (Last 24 hours) 06/30/16 07/01/16 07/02/16 07/03/16 11:59 11:59 11:59 11:59 Intake Total 1744 2942 2801 Output Total 350 1100 Balance 1394 2942 1701 Weight 68.039 kg 63.6 kg Microbiology Results (Last 24 hours) 07/02/16 10:19 Urine, Indwelling Catheter Urine Culture - Pending Laboratory Results (Last 24 hours) 07/02/16 07/02/16 07/02/16 14:54 07:00 07:00 Hgb 9.8 L Hct 29.4 L Crossmatch COMPATIBLE COMPATIBLE 07/02/16 07/02/16 07/02/16 07:00 06:29 06:00 Hgb Hct Crossmatch COMPATIBLE COMPATIBLE COMPATIBLE 07/02/16 06:00 Hgb Hct Crossmatch COMPATIBLE Orders (Last 24 hours) Category Date Time Status Catheter Care Record Q6H Care 07/02/16 08:35 Active Catheter-[place] STAT Care 07/02/16 08:33 Active Intake [Intake and Output] Q12H Care 07/02/16 08:33 Active Miscellaneous Nursing Order ROUTINE Care 07/02/16 08:37 Active Infection Control Consult ROUTINE Cons 07/02/16 09:49 Active CHEST 1 VIEW (PORTABLE) Routine Exams 07/02/16 16:56 Taken CBC Routine Lab 07/02/16 06:29 Completed CROSS MATCH (PRBC) Routine Lab 07/02/16 06:29 Completed CULTURE,URINE Routine Lab 07/02/16 10:19 Received HEMOGLOBIN AND HEMATOCRIT Routine Lab 07/02/16 14:54 Completed PRBC [CROSS MATCH (PRBC)] Urgent Lab 07/02/16 07:00 Completed Metoclopramide HCl 10 mg/2 ml* [Reglan 10 MG/2 ML] Med 07/02/16 10:00 Active 5 mg IV TID NaCl 0.9% 500 ml [Sodium Chloride 0.9% 500 ML] 500 ml Med 07/02/16 08:45 Active Pantoprazole 40 mg [Protonix 40 mg IV] 80 mg IV 50 mls/hr NaCl 0.9% 500 ml [Sodium Chloride 0.9% 500 ML] 500 ml Med 07/02/16 07:24 Discontinued IV UD Ringers Solution,Lactated [Lactated Ringers] 1,000 ml Med 07/02/16 06:30 Active IV 150 mls/hr Incentive Spirometry Assessmen TID RT 07/03/16 07:00 Active Patient Care Notes (Last 24 hours) 07/03/16 07:06 Nursing Note by Radha Jones call or contact centre operator Dr. Marciano So, paged to update on pt status of retaining interstitial fluids all over body and no labs placed for monitoring CBC this AM. IV fluids decreased to 100 from 150 by this nurse. Lungs cont to be clear/diminished. Initialized on 07/03/16 07:06 - END OF NOTE 07/03/16 06:47 Nursing Note by Radha Jones Pt rested well all shift, family at bedside. No loose bloody stools this shift and no vomiting. Pt a/ox4. Pt denied pain. PT conts to have sporadic wet cough, HOB in high harris's. PT lungs show clear anterior and mostly clear but diminished with fine crackles in bases posterior this AM. Pt conts to show pitting edema 1-2+ in BLE and slight edema to BUE. Pt is NPO. No change in vitals, stable. Initialized on 07/03/16 06:47 - END OF NOTE 07/02/16 10:54 Nursing Note by Kori Deutsch CHARGE TO PT: IV start kit, IV extension set x2, 20g cathlon x3, 22g cathlon, 24g cathlon, IV primary tubing ( protonix gtt), Y-type blood tubing x2 Initialized on 07/02/16 10:54 - END OF NOTE 07/02/16 10:44 Nursing Note by Kori Deutsch 2nd unit of PC's hung @ 1040. unit verified with duke gardner rn. Initialized on 07/02/16 10:44 - END OF NOTE 07/02/16 08:10 Nursing Note by Radha Jones At 0655 pt HR increased d/t anxiety. Pt given Ativan order early, pt calmed and returned to baseline. Staff in room holding pt hand. All other vitals are wnl's for pt. Initialized on 07/02/16 08:10 - END OF NOTE 07/02/16 07:48 Nursing Note by Kori Deutsch 1st unit of PRBCs hung @ 0745-unit verified with Carlos castro rn. Initialized on 07/02/16 07:48 - END OF NOTE Code(s): K92.2 - GASTROINTESTINAL HEMORRHAGE, UNSPECIFIED (2) Abdominal pain Current Visit: Yes Status: Resolved Qualifiers: Abdominal location: generalized Qualified Code(s): R10.84 - Generalized abdominal pain Code(s): R10.9 - UNSPECIFIED ABDOMINAL PAIN
[2016-07-03] MEDS: PROTONIX 40 MG IV*** 80 MG in Sodium Chloride 0.9% 500 ML 500 ML IV SCH (07:48)
[2016-07-03] MEDS ORDERED: DIPRIVAN 200 MG/20 ML IV ONE (08:00)
[2016-07-03] MEDS ORDERED: Lasix 20 MG/2 ML IV ONE (08:00)
--- NOTE | 2016-07-03 08:41 | XRAY ---
Indication: Preop exam. Comparison: June 23, 2016 Portable chest again hyperinflated with chronic lung markings, calcified granulomas, and blunting of both costophrenic angles. Heart is not enlarged. Vascularity normal. Bony thorax intact again with osteopenia, degenerative changes, and old left humeral neck fracture. Impression: Stable nonacute chest with chronic features. Comment: Preliminary interpretation was made by [facility]. No critical discrepancy.
[2016-07-03] MEDS ORDERED: Ketamine HCl 50 MG/ML IJ ONE (09:00)
[2016-07-03] MEDS ORDERED: Lactated Ringers 1,000 ML IV SCH (10:00)
[2016-07-03 11:17] VITALS: BP 126/59
[2016-07-03 11:19] VITALS: PULSE 90; O2SAT 98
[2016-07-03] MEDS: Reglan 10 MG/2 ML IV SCH (12:02)
[2016-07-03] MEDS: Lyrica 50MG PO SCH (12:04)
[2016-07-03] MEDS: Pepcid 20 MG VIAL IV SCH (12:04)
[2016-07-03] MEDS: Lyrica 25 MG PO SCH (12:04)
[2016-07-03] MEDS: LASIX 20 MG PO SCH (12:05)
[2016-07-03] MEDS: CLARITIN 10 MG PO SCH (12:05)
[2016-07-03] MEDS: Klor Con 10 MEQ PO SCH (12:05)
--- NOTE | 2016-07-03 12:37 | PCM.DS ---
Discharge Summary Date of Admission: 07/01/16 05:13 Admitting Physician: DULCE MALIN Consults: Consults on Case 06/30/16 14:23 Consult Surgery ROUTINE Primary Care Provider: ROSALIND JUAREZ Allergies Allergies erythromycin base [Erythromycin Base] Allergy (Unknown, Verified 06/30/16 09:58) hydrocodone [Hydrocodone] Allergy (Unknown, Verified 06/30/16 09:58) meperidine HCl [From Demerol] Allergy (Unknown, Verified 06/30/16 09:58) quinine Allergy (Verified 06/30/16 09:58) Hospital Summary - Hospital Course Hospital Course: Chief Complaint Diagnosis ANEMIA Admission Date Date 06/30/16 Allergies Allergy/AdvReac Type Severity Reaction Status Date / Time erythromycin base Allergy Unknown Verified 06/30/16 09:58 [Erythromycin Base] hydrocodone [Hydrocodone] Allergy Unknown Verified 06/30/16 09:58 meperidine HCl [From Demerol] Allergy Unknown Verified 06/30/16 09:58 quinine Allergy Verified 06/30/16 09:58 Vital Signs (Last 24 hours) Temp Pulse Resp BP BP Pulse Ox 07/03/16 11:18 90 20 98 07/03/16 11:16 97.8 F 80 20 126/59 94 L 07/03/16 09:47 97.8 F 98 H 22 99/58 95 07/03/16 07:28 97.8 F 98 H 22 99/58 95 07/03/16 06:32 109 H 22 95 07/03/16 04:00 97.7 F 96 H 16 98/55 99 07/03/16 00:00 98.0 F 96 H 16 96/60 98 07/02/16 20:00 99.2 F 126 H 18 100/55 99 07/02/16 17:29 123 H 20 97 07/02/16 15:37 97.9 F 126 H 20 112/58 95 07/02/16 14:55 123 H 20 88 L Home Medications Medication Instructions Recorded Confirmed Last Taken Type Albuterol/Ipratropium 3ml Neb* 3 ml IH QID 06/30/16 06/30/16 06/30/16 History [DUONEB 0.5-3 MG/3 ml Neb] Azithromycin 250 mg [Zithromax 250 mg PO 1700 06/30/16 06/30/16 06/29/16 17: 00 History 250 MG TABLET] Furosemide 20 mg [Lasix 20 20 mg PO DAILY 06/30/16 06/30/16 06/30/16 History mg] Current Medications Generic Name Dose Route Start Last Admin Trade Name Freq PRN Reason Stop Dose Admin Acetaminophen 650 mg 06/30/16 19:51 07/02/16 11:50 Tylenol 325 Mg PO 07/30/16 19:50 650 mg Q4H PRN PRN Administration PAIN AND/OR FEVER Acetaminophen 650 mg 07/01/16 07:37 Tylenol 325 Mg PO 07/31/16 07:36 Q4H PRN PRN PAIN AND/OR FEVER Albuterol/Ipratropium 3 ml 06/30/16 19:00 07/03/16 11:17 Duoneb 0.5-3 Mg/3 Ml Neb IH 07/30/16 18:59 3 ml QIDRT SUZY Administration Donepezil HCl 5 mg 06/30/16 22:00 07/02/16 22:37 Aricept 10 Mg PO 07/30/16 21:59 5 mg HS SUZY Administration Famotidine 20 mg 07/01/16 22:00 07/03/16 12:04 Pepcid 20 Mg Vial IV 07/31/16 21:59 20 mg Q12HT SUZY Administration Furosemide 20 mg 07/01/16 10:00 07/03/16 12:05 Lasix 20 Mg PO 07/31/16 09:59 20 mg DAILY SUZY Administration Lactated Ringer's 1,000 mls @ 150 mls/hr 07/02/16 06:30 07/03/16 03:27 Lactated Ringers IV 08/01/16 06:29 150 mls/hr .Q6H40M SUZY Administration Pantoprazole Sodium 80 mg/ 500 mls @ 50 mls/hr 07/02/16 08:45 07/03/16 07:48 Sodium Chloride IV 08/01/16 08:44 50 mls/hr .Q10H SUZY Administration Lactated Ringer's 1,000 mls @ 50 mls/hr 07/03/16 10:00 Lactated Ringers IV 07/04/16 05:59 .Q20H SUZY Loratadine 10 mg 07/01/16 10:00 07/03/16 12:05 Claritin 10 Mg PO 07/31/16 09:59 10 mg DAILY SUZY Administration Lorazepam 0.5 mg 06/30/16 19:52 07/02/16 22:38 Ativan 0.5 Mg PO 07/30/16 19:51 0.5 mg Q8H PRN PRN Administration ANXIETY Magnesium Hydroxide 30 ml 07/01/16 07:37 Milk Of Magnesia 30 Ml PO 07/31/16 07:36 DAILY PRN CONSTIPATION Metoclopramide HCl 5 mg 07/02/16 10:00 07/03/16 12:02 Reglan 10 Mg/2 Ml IV 08/01/16 09:59 5 mg TID SUZY Administration Ondansetron HCl 4 mg 07/02/16 06:14 07/02/16 06:20 Zofran 4 Mg/2 Ml Vial IV 08/01/16 06:13 4 mg Q4H PRN PRN Administration NAUSEA/VOMITING Potassium Chloride 10 meq 07/01/16 10:00 07/03/16 12:05 Klor Con 10 Meq PO 07/31/16 09:59 10 meq DAILY SUZY Administration Pregabalin 50 mg 07/01/16 10:00 07/03/16 12:04 Lyrica 50mg PO 07/30/16 21:59 50 mg BID SUZY Administration Pregabalin 25 mg 07/01/16 10:00 07/03/16 12:04 Lyrica 25 Mg PO 07/31/16 09:59 25 mg BID SUZY Administration Discontinued Medications Generic Name Dose Route Start Last Admin Trade Name Freq PRN Reason Stop Dose Admin Albuterol Sulfate 2.5 mg 06/30/16 16:56 Proventil 2.5 Mg/3 Ml Neb IH 07/30/16 16:55 Q4H PRN PRN SHORTNESS OF BREATH/WHEEZING Sodium Chloride 1,000 mls @ 100 mls/hr 06/30/16 12:00 06/30/16 12:15 Sodium Chloride 0.9% 1000 Ml IV 07/30/16 11:59 100 mls/hr .Q10H USZY Administration Sodium Chloride Confirm 01/23/17 12:07 Sodium Chloride 0.9% 1000 Ml Administered 06/30/16 12:08 Dose 1,000 mls @ ud .ROUTE .STK-MED ONE Sodium Chloride 1,000 mls @ 50 mls/hr 06/30/16 14:23 07/02/16 03:25 Sodium Chloride 0.9% 1000 Ml IV 07/30/16 14:22 100 mls/hr .Q20H SUZY Administration Sodium Chloride Confirm 07/02/16 07:24 Sodium Chloride 0.9% 500 Ml Administered 07/02/16 07:25 Dose 500 mls @ ud IV .STK-MED ONE Pantoprazole Sodium 40 mg 06/30/16 12:01 06/30/16 12:15 Protonix 40 Mg Iv IV 06/30/16 12:02 40 mg STAT ONE Administration Pantoprazole Sodium Confirm 06/30/16 12:07 Protonix 40 Mg Iv Administered 06/30/16 12:08 Dose 40 mg IV .STK-MED ONE Pantoprazole Sodium 40 mg 07/01/16 10:00 07/01/16 10:27 Protonix 40mg Tablet PO 07/31/16 09:59 40 mg DAILY SUZY Administration Pantoprazole Sodium 40 mg 07/01/16 13:15 07/01/16 14:34 Protonix 40 Mg Iv IV 07/31/16 13:14 40 mg Q24H SUZY Administration Pregabalin 75 mg 06/30/16 22:00 06/30/16 21:37 Lyrica 50mg PO 07/30/16 21:59 75 mg BID SUZY Administration Pregabalin Confirm 06/30/16 21:31 Lyrica 25 Mg Administered 06/30/16 21:32 Dose 25 mg .ROUTE .STK-MED ONE Pregabalin Confirm 06/30/16 21:32 Lyrica 50mg Administered 06/30/16 21:33 Dose 50 mg .ROUTE .STK-MED ONE Intake & Output (Last 24 hours) 07/01/16 07/02/16 07/03/16 07/04/16 11:59 11:59 11:59 11:59 Intake Total 1744 2942 2801 Output Total 350 1100 Balance 1394 2942 1701 Weight 63.6 kg 72.121 kg Microbiology Results (Last 24 hours) 07/02/16 10:19 Urine, Indwelling Catheter Urine Culture - Pending Laboratory Results (Last 24 hours) 07/02/16 14:54 Hgb 9.8 L Hct 29.4 L Orders (Last 24 hours) Category Date Time Status Regular Diet Diet 07/03/16 Lunch Active CHEST 1 VIEW (PORTABLE) Routine Exams 07/02/16 16:56 Completed HEMOGLOBIN AND HEMATOCRIT Routine Lab 07/02/16 14:54 Completed Ringers Solution,Lactated [Lactated Ringers] 1,000 ml Med 07/03/16 10:00 Active IV 50 mls/hr Incentive Spirometry Assessmen TID RT 07/03/16 07:00 Active Patient Care Notes (Last 24 hours) 07/03/16 08:04 Nursing Note by ILANA RAMOS Reported to Dr. Juarez patient presenting with bilateral moderate edema new finding on web marketing assistant. Also notified that patient had no labs ordered this AM and patient has EGD scheduled today. Dr. Juarez ordered to lower IV fluid rate to 50cc/hr and not to order more labs. Dr. Juarez stated he will be in this morning to further assess the patient. Initialized on 07/03/16 08:04 - END OF NOTE 07/03/16 07:06 Nursing Note by Radha Jones will call clerk Dr. prachi Juarez, Dr. Marciano Berry, paged to update on pt status of retaining interstitial fluids all over body and no labs placed for monitoring CBC this AM. IV fluids decreased to 100 from 150 by this nurse. Lungs cont to be clear/diminished. Initialized on 07/03/16 07:06 - END OF NOTE 07/03/16 06:47 Nursing Note by Radha Jones Pt rested well all shift, family at bedside. No loose bloody stools this shift and no vomiting. Pt a/ox4. Pt denied pain. PT conts to have sporadic wet cough, HOB in high [place]arris's. PT lungs show clear anterior and mostly clear but diminished with fine crackles in bases posterior this AM. Pt conts to show pitting edema 1-2+ in BLE and slight edema to BUE. Pt is NPO. No change in vitals, stable. Initialized on 07/03/16 06:47 - END OF NOTE - Vitals & Intake/Output Vital Signs: Vital Signs Temperature 97.8 F 07/03/16 11:16 Pulse Rate 90 07/03/16 11:18 Respiratory Rate 20 07/03/16 11:18 Blood Pressure 126/59 07/03/16 11:16 O2 Sat by Pulse Oximetry 98 07/03/16 11:18 Oxygen-Last Documented O2 Percentage 2 Liters = 28% Intake & Output: Intake & Output 07/01/16 07/02/16 07/03/16 07/04/16 11:59 11:59 11:59 11:59 Intake Total 838 2942 2801 Output Total 1100 Balance 838 2942 1701 Weight 72.121 kg - Lab Result Diagrams: 07/02/16 14:54 07/01/16 05:13 Lab Results-Last 24 Hrs: Lab Results-Last 24 Hours 07/02/16 Range/Units 14:54 Hgb 9.8 L (12.0-16.0) gm/dl Hct 29.4 L (35-47) % - Radiology Exams Ordered Rad Exams-Entire Visit: Radiology Procedures Category Date Time Status CHEST 1 VIEW (PORTABLE) Routine Exams 07/02/16 16:56 Completed - Procedures and Test Procedures and Tests throughout Hospitalization: Therapy Orders & Screens 06/30/16 16:57 Oxygen NASAL CANNULA 2 lpm Comment: Diagnosis: gi bleed 06/30/16 17:50 Respiratory Nebulizer QID Comment: Diagnosis: c/o nausea vomiting with dark bloody stool 07/03/16 07:00 Incentive Spirometry Assessmen TID Comment: INCENTIVE SPIROMETRY Diagnosis: ANEMIA Discharge Exam General Appearance: no apparent distress, alert Neurologic Exam: alert, oriented x 3, cooperative, normal mood/affect, nml cerebellar function, sensation nml, No motor deficits Skin Exam: normal color, warm, dry Eye Exam: PERRL, EOMI, eyes nml inspection Ears, Nose, Throat Exam: normal ENT inspection, pharynx normal, moist mucous membranes Neck Exam: normal inspection, non-tender, supple, full range of motion Respiratory Exam: normal breath sounds, lungs clear, No respiratory distress Cardiovascular Exam: regular rate/rhythm, normal heart sounds Gastrointestinal/Abdomen Exam: soft, No tenderness, No mass Extremity Exam: normal inspection, normal range of motion Back Exam: normal inspection, normal range of motion, No CVA tenderness, No vertebral tenderness Pelvic Exam: deferred Rectal Exam: deferred Final Diagnosis/Problem List - Final Discharge Diagnosis/Problem (1) GI bleed Current Visit: Yes Status: Resolved (2) Abdominal pain Current Visit: Yes Status: Resolved - Discharge Discharge Date: 07/03/16 Disposition: DC TO [facility] Condition: Fair Prescriptions: Continue Potassium Chloride 10 Meq Tab* [Klor Con 10 MEQ] 10 meq PO DAILY Pregabalin [Lyrica] 75 mg PO BID Aspirin [Aspirin EC] 81 mg PO DAILY Cetirizine HCl [Zyrtec] 10 mg PO DAILY Lorazepam 0.5 mg [Ativan 0.5 MG] 0.5 mg PO Q8HPRN PRN PRN Reason: Anxiety Acetaminophen 325 mg [Tylenol 325 mg] 650 mg PO Q4H PRN PRN PRN Reason: Pain And/Or Fever Omeprazole 20 MG [Prilosec 20 mg] 20 mg PO DAILY Magnesium Hydroxide 30 ml [Milk of Magnesia 30 ml] 30 ml PO DAILY PRN PRN Reason: Constipation Donepezil HCl 10 mg [Aricept 10 MG] 5 mg PO HS #30 tablet Azithromycin 250 mg [Zithromax 250 MG TABLET] 250 mg PO 1700 Furosemide 20 mg [Lasix 20 mg] 20 mg PO DAILY Albuterol/Ipratropium 3ml Neb* [DUONEB 0.5-3 MG/3 ml Neb] 3 ml IH QID Additional Instructions: cbc in 1 weeks, Follow up with: ROSALIND JUAREZ MD [Primary Care Provider] - 7 Days
--- NOTE | 2016-07-03 12:54 | OP ---
SURGERY DATE: 07/03/16 SURGERY TIME: 1017 PREOPERATIVE DIAGNOSIS: 1. GASTROINTESTINAL BLEED, PROBABLY DUODENAL. POSTOPERATIVE DIAGNOSIS: 1. NORMAL EGD. PROCEDURE: 1. EGD. SURGEON: Sid Brito M.D. ANESTHESIA: MAC. COMPLICATIONS: None. CONDITION: Stable. INDICATION: 89 y/o requiring EGD. OPERATIVE PROCEDURE: Taken to endoscopy. Dorsal supine position. Scope introduced. Esophagus normal down to esophagogastric junction. Esophagogastric junction was normal. Fundus, body, and antrum normal. Pylorus normal. Duodenal bulb normal. 2nd portion normal. No blood on today's examination either new or old. Scope looped upon itself. Hiatus normal from below. IMPRESSION: NORMAL EXAMINATION WITH NO SIGNS OF BLEEDING. Jean Marie discussion with the family. At this time, they do not elect to proceed with a lower. If she continues to have the issue, we may do a lower exam.
== END 2016-07-03 15:26 | DRG 379 ==
LOC: ED 09:48 → ICU 13:42 → OBSVTOIN 07-01 05:13 → MED SURG 07-01 16:03
PROVIDERS: ADMIT General Practice; ATTEND General Practice
PROC: 0DJ08ZZ Inspection of Upper Intestinal Tract, Via Natural or Artificial Opening Endoscopic (ICD-10-PCS; principal; 2016-07-03)
DX: K92.2 Gastrointestinal hemorrhage, unspecified (principal); R10.84 Generalized abdominal pain; G62.9 Polyneuropathy, unspecified; I50.9 Heart failure, unspecified; I25.10 Atherosclerotic heart disease of native coronary artery without angina pectoris; I10 Essential (primary) hypertension; J44.9 Chronic obstructive pulmonary disease, unspecified; D64.9 Anemia, unspecified; F41.8 Other specified anxiety disorders; K92.0 Hematemesis
CPT/HCPCS: 00740; 36000; 36415; 36430; 71010; 80053; 81002; 82150; 82272; 82962; 83690; 85014; 85018; 85025; 85027; 86850; 86870; 86900; 86901; 86922; 87086; 93005; 93268; 94640; 94760; 96360; 96361; 99284; G0378; J1940; J2405; J2704; P9016

== ENCOUNTER 2016-07-07 23:50 | Emergency (ER) | payer MEDICARE ==
--- NOTE | 2016-07-08 00:16 | ERPHSYRPT ---
- History of Present Illness Time Seen by Provider: 07/08/16 00:10 Source: patient Exam Limitations: clinical condition Patient Subjective Stated Complaint: Pt fell from electric lift chair approx 3 feet onto floor when attempting to get up to go to the restroom. Pt C/O left hip , right knee pain post fall. EMS sts all bruising on lower legs is old - per SPINE SURGEON at [facility]. Per EMS pt is confused. Triage Nursing Assessment: Pt eyes open spontaneously. Pt alert to self - confused to date, time. Resps non-labored, SPO2 99% 2LO2. Pt has BLE 4+ pitting edema with bruising lt lower leg and redness rt lower leg. + pedal pulses noted bilat. No bruising noted to left hip, right knee where pt C/O pain. Pt able to move legs without difficulty. Physician History: PATIENT WITH HISTORY OF FELL OUT OF HER CHAIR AND SUSTAINED INJURY TO HER LEFT HIP AND RIGHT KNEE. DENIES ASSOCIATED HEAD, NECK BACK INJURY OR LOSS OF CONSCIOUSNESS. Occurred: just prior to arrival Reason for Fall: slipped Injuries/Pain Location: lower extremity Loss of Consciousness: no loss of consciousness Severity of Pain-Max: moderate Severity of Pain-Current: mild Modifying Factors: Improves With: movement Allergies/Adverse Reactions: erythromycin base [Erythromycin Base] Allergy (Unknown, Verified 07/08/16 00:14) hydrocodone [Hydrocodone] Allergy (Unknown, Verified 07/08/16 00:14) meperidine HCl [From Demerol] Allergy (Unknown, Verified 07/08/16 00:14) quinine Allergy (Verified 07/08/16 00:14) Home Medications: Potassium Chloride 10 Meq Tab* [Klor Con 10 MEQ] 10 meq PO DAILY 07/09/12 [ History] Aspirin [Aspirin EC] 81 mg PO DAILY 01/25/14 [History] Pregabalin [Lyrica] 75 mg PO BID 01/25/14 [History] Cetirizine HCl [Zyrtec] 10 mg PO DAILY 06/07/16 [History] Acetaminophen 325 mg [Tylenol 325 mg] 650 mg PO Q4H PRN PRN 06/13/16 [ History] Lorazepam 0.5 mg [Ativan 0.5 MG] 0.5 mg PO Q8HPRN PRN 06/13/16 [History] Omeprazole 20 MG [Prilosec 20 mg] 20 mg PO DAILY 06/13/16 [History] Magnesium Hydroxide 30 ml [Milk of Magnesia 30 ml] 30 ml PO DAILY PRN 03/24 [History] Albuterol/Ipratropium 3ml Neb* [DUONEB 0.5-3 MG/3 ml Neb] 3 ml IH QID [History] Azithromycin 250 mg [Zithromax 250 MG TABLET] 250 mg PO 1700 06/30/16 [ History] Furosemide 20 mg [Lasix 20 mg] 20 mg PO DAILY 06/30/16 [History] Hx Tetanus, Diphtheria Vaccination/Date Given: No Hx Influenza Vaccination/Date Given: Yes (2015) Hx Pneumococcal Vaccination/Date Given: Yes (2015) - Review of Systems Constitutional: No Fever, No Chills Eyes: No Symptoms Ears, Nose, & Throat: No Symptoms Respiratory: No Symptoms, No Cough, No Dyspnea Cardiac: No Chest Pain, No Edema, No Syncope Abdominal/Gastrointestinal: No Symptoms, No Abdominal Pain, No Nausea, No Vomiting, No Diarrhea Genitourinary Symptoms: No Dysuria Musculoskeletal: Injury, No Back Pain, No Neck Pain Skin: No Rash Neurological: No Dizziness, No Focal Weakness, No Sensory Changes Psychological: No Symptoms Endocrine: No Symptoms All Other Systems: Reviewed and Negative - Past Medical History Pertinent Past Medical History: Yes Neurological History: Peripheral Neuropathy ENT History: Cataracts Cardiac History: Congestive Heart Failure, Coronary Artery Disease, Hypertension Respiratory History: CHF, COPD, Pneumonia Endocrine Medical History: No Pertinent History Musculoskeletal History: Osteoarthritis GI Medical History: Hemorrhoids, Hernia History: No Pertinent History Psycho-Social History: Anxiety, Depression Female Reproductive Disorders: No Pertinent History Other Medical History: PELVIC AND NECK FRACTURE - Past Surgical History Past Surgical History: Yes Neuro Surgical History: No Pertinent History Cardiac: No Pertinent History Respiratory: No Pertinent History Gastrointestinal: Cholecystectomy, Hernia Repair Genitourinary: No Pertinent History Musculoskeletal: Joint Replacement, Orthopedic Surgery Female Surgical History: No Pertinent History - Social History Smoking Status: Unknown if ever smoked Exposure to second hand smoke: No Drug Use: none Patient Lives Alone: No - Female History Hx Now: No - Nursing Vital Signs Nursing Vital Signs: Initial Vital Signs Temperature 98.2 F Temperature Source Oral Pulse Rate 104 Respiratory Rate 20 Blood Pressure [] 122/74 Pain Intensity 4 - Sheridan Coma Score Best Eye Response (Saeed): (4) open spontaneously Best Verbal Response (Sheridan): (5) oriented Best Motor Response (Saeed): (6) obeys commands Sheridan Total: 15 - Physical Exam General Appearance: no apparent distress, alert Head Injury: no evidence of injury Eye Exam: PERRL/EOMI ENT Exam: airway nml Neck Exam: normal inspection, No tenderness Respiratory/Chest Exam: normal breath sounds, No chest tenderness, No respiratory distress Cardiovascular Exam: normal heart sounds, regular rate/rhythm Gastrointestinal Exam: soft, No tenderness, No distention, No guarding, No ecchymosis Back Exam: normal inspection, No vertebral tenderness Extremity Exam: normal inspection, normal range of motion, pelvis stable, pedal edema (+3 PITTING EDEMA FEET TO MID THIGH BILAT), other (TENDERNESS LEFT GREATER TROCHANTER, WELL HEALED LEFT GREATER TROCHANTER SCAR, LEFT KNEE PATELL MIDLINE MOBILE WITH TENDERNESS, NO JOINT LAXITY UPON VARGUS, VALGUS STRESS), No deformities Peripheral Pulses: carotid (R): 2+, carotid (L): 2+, femoral (R): 2+, femoral (L ): 2+, dorsalis-pedis (R): 2+, dorsalis-pedis (L): 2+ Neurologic Exam: alert, oriented x 3, cooperative, sensation nml, No motor deficits Skin Exam: normal color, warm, dry SpO2 Interpretation: normal SpO2: 98 Oxygen Delivery: Nasal Cannula - Radiology Exams Pelvis X-ray Interpretation: Interpreted by me (no fracture) Right Femur X-ray Interpretation: Interpreted by me (NO FRACTURE OR DISLOCATION) Right Humerus X-ray Interpretation: Interpreted by me (NO FRACTURE OR DISLOCATION) Left Femur X-ray Interpretation: Interpreted by me (NO FRACTURE OR DISLOCATION PROSTHESIS) Ordered Tests: Active Orders 24 hr Category Date Time Status FEMUR Stat Exams 07/08/16 00:08 Taken FEMUR Stat Exams 07/08/16 00:09 Taken KNEE (3 VIEWS) Stat Exams 07/08/16 00:09 Taken PELVIS (1 OR 2 VIEWS) Stat Exams 07/08/16 00:08 Taken BMP Stat Lab 07/08/16 01:15 Completed CBC W DIFF Stat Lab 07/08/16 01:15 Completed Medication Summary Discontinued Medications Generic Name Dose Route Start Last Admin Trade Name Stuart PRN Reason Stop Dose Admin Acetaminophen/Hydrocodone Bitart 1 tab 07/08/16 02:10 07/08/16 02:19 [place] 5/325 Mg PO 07/08/16 02:11 1 tab STAT ONE Administration Acetaminophen/Hydrocodone Bitart Confirm 07/08/16 02:18 [place] 5/325 Mg Administered 07/08/16 02:19 Dose 1 tab .ROUTE .STK-MED ONE Lab/Rad Data: Laboratory Result Diagrams 07/08/16 01:15 07/08/16 01:15 Laboratory Results 07/08/16 07/08/16 Range/Units 01:15 01:15 WBC 5.4 (4.0-10.5) K/mm3 RBC 3.33 L (4.1-5.4) M/mm3 Hgb 9.1 L (12.0-16.0) gm/dl Hct 29.7 L (35-47) % MCV 89.2 (78-100) fl MCH 27.3 (26-32) pg MCHC 30.6 L (32-36) g/dl RDW 17.8 H (11.5-14.0) % Plt Count 181 (150-450) K/mm3 MPV 10.6 H (6-9.5) fl Gran % 68.7 H (36.0-66.0) % Lymphocytes % 19.1 L (24.0-44.0) % Monocytes % 9.4 (0.0-12.0) % Eosinophils % 2.4 (0.00-5.0) % Basophils % 0.4 (0.0-0.4) % Basophils # 0.02 (0-0.4) Sodium 140 (136-145) mEq/L Potassium 3.4 L (3.5-5.1) mEq/L Chloride 104 (98-107) mEq/L Carbon Dioxide 29.3 (21-32) mEq/L Anion Gap 9.7 (5-15) MEQ/L BUN 10 (9-20) mg/dL Creatinine 0.82 (0.55-1.30) mg/dl Estimated GFR > 60 ML/MIN Glucose 102 (70-110) MG/DL Calcium 8.4 L (8.5-10.1) mg/dL - Departure Time of Disposition: 03:05 Departure Disposition: Home Clinical Impression: LEFT HIP CONTUSION, RIGHT KNEE CONTUSION/STRAIN Condition: Stable Critical Care Time: No Referrals: ROSALIND JUAREZ MD [Primary Care Provider] - Additional Instructions: CONTINUE ALL CURRENT MEDICATIONS. FOLLOWUP WITH FAMILY PHYSICIAN FOR EVALUATION OF LEG EDEMA.
[2016-07-08 01:28] LABS: BASOPHIL % 0.4 % (0.0-0.4); Eosinophil % 2.4 % (0.00-5.0); Granulocytes % 68.7 % (36.0-66.0); Lymphocytes % 19.1 % (24.0-44.0); Mean Cell Volume 89.2 fl (78-100); Mean Corpuscular Hemoglobin 27.3 pg (26-32); Mean Platelet Volume 10.6 fl (6-9.5); Monocytes % 9.4 % (0.0-12.0); Platelet Count 181 K/mm3 (150-450); Red Blood Count 3.33 M/mm3 (4.1-5.4); Red Cell Distribution Width 17.8 % (11.5-14.0); White Blood Count 5.4 K/mm3 (4.0-10.5)
[2016-07-08 01:43] LABS: ANION GAP 9.7 MEQ/L (5-15); BLOOD UREA NITROGEN 10 mg/dL (9-20); CHLORIDE 104 mEq/L (98-107); Carbon Dioxide 29.3 mEq/L (21-32); Glucose 102 MG/DL (70-110); Potassium 3.4 mEq/L (3.5-5.1); SODIUM 140 mEq/L (136-145)
[2016-07-08] MEDS ORDERED: NORCO 5/325 MG PO ONE (02:10)
[2016-07-08] MEDS ORDERED: NORCO 5/325 MG ONE (02:18)
[2016-07-08 03:01] VITALS: BP 131/84; PULSE 97; O2SAT 100
--- NOTE | 2016-07-08 08:41 | XRAY ---
Indication: Pain following fall. Comparison: None 3 views of the right knee demonstrates osteopenia, mild tricompartmental degenerative changes, and scattered vascular calcifications. No acute fracture, dislocation, or suspicious bony lesions.
--- NOTE | 2016-07-08 08:41 | XRAY ---
Indication: Pain following fall. 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 No acute fracture, dislocation, or suspicious bony lesions.
--- NOTE | 2016-07-08 08:43 | XRAY ---
Indication: Pain following fall. Comparison: June 17, 2016 2 views of the right femur unchanged again demonstrating osteopenia, tricompartmental knee degenerative changes, and scattered vascular calcifications. No new/acute findings.
--- NOTE | 2016-07-08 08:45 | XRAY ---
Indication: Pain following fall. Comparison: January 24, 2013 AP pelvis again demonstrates osteopenia, old left pubic bone fractures, lower lumbar degenerative changes, left hip arthroplasty with intact bipolar prosthesis, ventral hernia repair, and scattered vascular calcifications. No new/acute findings.
== END 2016-07-08 03:10 | disposition home or self-care (01) ==
LOC: ED 23:50
DX: S70.02XA Contusion of left hip, initial encounter (principal); S80.01XA Contusion of right knee, initial encounter; S83.91XA Sprain of unspecified site of right knee, initial encounter; M25.552 Pain in left hip; W07.XXXA Fall from chair, initial encounter; I50.9 Heart failure, unspecified; I25.10 Atherosclerotic heart disease of native coronary artery without angina pectoris; I10 Essential (primary) hypertension; J44.9 Chronic obstructive pulmonary disease, unspecified
CPT/HCPCS: 36415; 72170; 73552; 73562; 80048; 85025; 99283

== ENCOUNTER 2016-08-31 09:58 | Emergency (ER) | payer MEDICARE ==
--- NOTE | 2016-08-31 10:34 | ERPHSYRPT ---
- History of Present Illness Time Seen by Provider: 08/31/16 10:26 Source: patient, family Exam Limitations: other (difficulty hearing and speaking) Patient Subjective Stated Complaint: knee started hurrting last nite , has been unable to bare weight or eat pain is excruciating Triage Nursing Assessment: pt alert and oriented x3, patietn in extreme pain right knee warm to touch and unble to bend or move Physician History: Fell 2-3 months ago and had 26 sutures placed R knee at that time. States began having R knee pain yesterday along with swelling. Normally ambulates with walker but unable to ambulate due to pain. States felt hot yesterday but unknown if pt. had a fever. Denies any recent trauma or injury to knee. States hips are sore from "sitting all day." States recently had kidney infection. States taken "pain pills" with some relief. Method of Injury: unknown Occurred: yesterday Quality: intermittent, sharpness Severity of Pain-Max: moderate Severity of Pain-Current: moderate Lower Extremities Pain: knee: right Modifying Factors: Improves With: immobilization (improves), movement (worsens) Associated Symptoms: unable to bear weight Allergies/Adverse Reactions: erythromycin base [Erythromycin Base] Allergy (Unknown, Verified 07/08/16 00:14) hydrocodone [Hydrocodone] Allergy (Unknown, Verified 07/08/16 00:14) meperidine HCl [From Demerol] Allergy (Unknown, Verified 07/08/16 00:14) quinine Allergy (Verified 07/08/16 00:14) Home Medications: Potassium Chloride 10 Meq Tab* [Klor Con 10 MEQ] 10 meq PO DAILY 07/09/12 [ History] Pregabalin [Lyrica] 75 mg PO BID 01/25/14 [History] Cetirizine HCl [Zyrtec] 10 mg PO DAILY 06/07/16 [History] Acetaminophen 325 mg [Tylenol 325 mg] 650 mg PO Q4H PRN PRN 06/13/16 [ History] Lorazepam 0.5 mg [Ativan 0.5 MG] 0.5 mg PO Q8HPRN PRN 06/13/16 [History] Omeprazole 20 MG [Prilosec 20 mg] 20 mg PO DAILY 06/13/16 [History] Magnesium Hydroxide 30 ml [Milk of Magnesia 30 ml] 30 ml PO DAILY PRN 03/24 [History] Albuterol/Ipratropium 3ml Neb* [DUONEB 0.5-3 MG/3 ml Neb] 3 ml IH QID [History] Furosemide 20 mg [Lasix 20 mg] 20 mg PO DAILY 06/30/16 [History] Hx Tetanus, Diphtheria Vaccination/Date Given: No Hx Influenza Vaccination/Date Given: Yes (2015) Hx Pneumococcal Vaccination/Date Given: Yes (2015) Immunizations Up to Date: No - Review of Systems Constitutional: No Fever, No Chills Eyes: No Symptoms Ears, Nose, & Throat: No Symptoms Respiratory: No Cough, No Dyspnea Cardiac: No Chest Pain, No Edema, No Syncope Abdominal/Gastrointestinal: No Abdominal Pain, No Nausea, No Vomiting, No Diarrhea Genitourinary Symptoms: No Dysuria Musculoskeletal: Joint Pain (R knee), Joint Swelling (minimal swelling R knee), No Back Pain, No Neck Pain, No Joint Redness Skin: No Rash Neurological: No Dizziness, No Focal Weakness, No Sensory Changes Psychological: No Symptoms Endocrine: No Symptoms Hematologic/Lymphatic: No Symptoms Immunological/Allergic: No Symptoms All Other Systems: Reviewed and Negative - Past Medical History Pertinent Past Medical History: Yes Neurological History: Peripheral Neuropathy ENT History: Cataracts Cardiac History: Congestive Heart Failure, Coronary Artery Disease, Hypertension Respiratory History: CHF, COPD, Pneumonia Endocrine Medical History: No Pertinent History Musculoskeletal History: Arthritis, Osteoarthritis GI Medical History: Hemorrhoids, Hernia History: No Pertinent History Psycho-Social History: Anxiety, Depression Female Reproductive Disorders: No Pertinent History Other Medical History: PELVIC AND NECK FRACTURE - Past Surgical History Past Surgical History: Yes Neuro Surgical History: No Pertinent History Cardiac: No Pertinent History Respiratory: No Pertinent History Gastrointestinal: Cholecystectomy, Hernia Repair Genitourinary: No Pertinent History Musculoskeletal: Joint Replacement, Orthopedic Surgery Female Surgical History: No Pertinent History - Social History Smoking Status: Unknown if ever smoked Exposure to second hand smoke: No Drug Use: none Patient Lives Alone: No - Female History Hx Now: No - Nursing Vital Signs Nursing Vital Signs: Initial Vital Signs Temperature 98.3 F Temperature Source Oral Pulse Rate 90 Respiratory Rate 18 Blood Pressure [Right Arm] 137/56 Pain Intensity 0 - Physical Exam General Appearance: alert Eyes, Ears, Nose, Throat Exam: moist mucous membranes Neck Exam: non-tender, supple Cardiovascular/Respiratory Exam: chest non-tender, normal breath sounds, regular rate/rhythm, no respiratory distress Gastrointestinal/Abdominal Exam: non-tender, guarding Back Exam: normal inspection, No vertebral tenderness Knees Exam: right knee: no evidence of injury, joint effusion (minimal if any), pain, soft tissue tenderness, swelling Neuro/Tendon Exam: normal sensation, normal motor functions Mental Status Exam: alert, oriented x 3, cooperative Skin Exam: normal color, warm, dry - Radiology Exams Right Knee X-ray Interpretation: Teleradiologist Report, Other (severe arthritis) Ordered Tests: Active Orders 24 hr Category Date Time Status IV Insertion STAT Care 08/31/16 11:01 Active KNEE (1 OR 2 VIEW) Stat Exams 08/31/16 10:42 Completed BMP Stat Lab 08/31/16 10:20 Completed CBC W DIFF Stat Lab 08/31/16 10:20 Completed Erythrocyte Sedimentation Rate Stat Lab 08/31/16 10:20 Completed Manual Differential NC Stat Lab 08/31/16 10:20 Completed Medication Summary Discontinued Medications Generic Name Dose Route Start Last Admin Trade Name Freq PRN Reason Stop Dose Admin Ceftriaxone Sodium 1,000 mg 08/31/16 13:16 08/31/16 13:20 Rocephin 1000 Mg Inj IM 08/31/16 13:17 1,000 mg STAT ONE Administration Ceftriaxone Sodium Confirm 08/31/16 13:19 Rocephin 1000 Mg Inj Administered 08/31/16 13:20 Dose 1,000 mg .ROUTE .STK-MED ONE Morphine Sulfate 2 mg 08/31/16 11:04 08/31/16 11:19 Morphine Sulfate 2 Mg Inj IV 08/31/16 11:05 2 mg STAT ONE Administration Morphine Sulfate Confirm 08/31/16 11:03 Morphine Sulfate 2 Mg Inj Administered 08/31/16 11:04 Dose 2 mg .ROUTE .STK-MED ONE Morphine Sulfate 2 mg 08/31/16 11:25 08/31/16 11:47 Morphine Sulfate 2 Mg Inj IV 08/31/16 11:26 2 mg STAT ONE Administration Morphine Sulfate Confirm 08/31/16 11:37 Morphine Sulfate 2 Mg Inj Administered 08/31/16 11:38 Dose 2 mg .ROUTE .STK-MED ONE Nalbuphine HCl 5 mg 08/31/16 10:44 08/31/16 11:01 Nubain 10 Mg/Ml IM 08/31/16 10:45 Not Given STAT ONE Nalbuphine HCl Confirm 08/31/16 10:51 Nubain 10 Mg/Ml Administered 08/31/16 10:52 Dose 10 mg .ROUTE .STK-MED ONE Lab/Rad Data: Laboratory Result Diagrams 08/31/16 10:20 08/31/16 10:20 Laboratory Results 08/31/16 08/31/16 Range/Units 10:20 10:20 WBC 13.7 H (4.0-10.5) K/mm3 RBC 4.53 (4.1-5.4) M/mm3 Hgb 10.3 L (12.0-16.0) gm/dl Hct 34.1 L (35-47) % MCV 75.3 L (78-100) fl MCH 22.7 L (26-32) pg MCHC 30.2 L (32-36) g/dl RDW 19.0 H (11.5-14.0) % Plt Count 298 (150-450) K/mm3 MPV 12.0 H (6-9.5) fl Segmented Neutrophils 90 H (36.0-66.0) % Lymphocytes (Manual) 7 L (24-44) % Monocytes (Manual) 3 (0.0-12.0) % Platelet Estimate NORMAL (NORMAL) Poikilocytosis 1+ Anisocytosis 1+ ESR 28 H (0-20) mm/hr Sodium 142 (136-145) mEq/L Potassium 4.2 (3.5-5.1) mEq/L Chloride 105 (98-107) mEq/L Carbon Dioxide 28.7 (21-32) mEq/L Anion Gap 12.4 (5-15) MEQ/L BUN 23 H (9-20) mg/dL Creatinine 1.17 (0.55-1.30) mg/dl Estimated GFR 46 ML/MIN Glucose 134 H (70-110) MG/DL Calcium 8.7 (8.5-10.1) mg/dL - Progress Progress: improved Progress Note: 08/31/16 13:35 patient given IM morphine and Rocephin with improvement of her symptoms. Patient resting comfortably without any acute distress Discussed with Dr.: Chawla (agreed patient can be discharged back to shelter on Rocephin IM and pain control.) Will see patient in: office Counseled pt/family regarding: lab results, diagnosis, rad results - Departure Time of Disposition: 13:37 Departure Disposition: Extended Care Facility (shelter) Clinical Impression: Right knee pain, Cellulitis Condition: Stable Critical Care Time: No Instructions: Knee Pain, Cellulitis -- Adult Additional Instructions: rest, ice, elevate along with decreased weight-bearing. Patient will receive IM Rocephin and morphine at extended care facility Return for worse knee pain, swelling, redness or any further problems
[2016-08-31] MEDS ORDERED: Nubain 10 MG/ML IM ONE (10:44)
[2016-08-31] MEDS ORDERED: Nubain 10 MG/ML ONE (10:51)
[2016-08-31] MEDS ORDERED: MORPHINE SULFATE 2 MG INJ ONE ×2 (11:03→11:37)
[2016-08-31] MEDS ORDERED: MORPHINE SULFATE 2 MG INJ IV ONE ×2 (11:04→11:25)
--- NOTE | 2016-08-31 11:31 | XRAY ---
Indication: Right knee pain. Severe arthritis. Fall May 2016. Comparison: July 08, 2016. AP/crosstable right knee again demonstrates osteopenia, scattered vascular calcifications, and mild/moderate tricompartmental degenerative changes progressively worsened in the lateral compartment. New suprapatellar effusion. No other bony, articular, or soft tissue abnormalities.
[2016-08-31 11:36] LABS: Mean Cell Volume 75.3 fl (78-100); Mean Corpuscular Hemoglobin 22.7 pg (26-32); Platelet Count 298 K/mm3 (150-450); Red Blood Count 4.53 M/mm3 (4.1-5.4); White Blood Count 13.7 K/mm3 (4.0-10.5)
[2016-08-31 11:54] LABS: ANION GAP 12.4 MEQ/L (5-15); Carbon Dioxide 28.7 mEq/L (21-32); Potassium 4.2 mEq/L (3.5-5.1)
[2016-08-31 12:01] LABS: Erythrocyte Sedimentation Rate 28 mm/hr (0-20)
[2016-08-31 12:03] LABS: Total Cells Counted 100
[2016-08-31 12:04] LABS: ANISOCYTOSIS 1+; Platelet Estimate NORMAL (NORMAL); Poikilocytosis 1+
[2016-08-31] MEDS ORDERED: Rocephin 1000 MG INJ IM ONE (13:16)
[2016-08-31] MEDS ORDERED: Rocephin 1000 MG INJ ONE (13:19)
[2016-08-31 14:01] VITALS: BP 129/70; PULSE 67; O2SAT 100
== END 2016-08-31 14:01 | disposition home or self-care (01) ==
LOC: ED 09:58
DX: M25.561 Pain in right knee (principal); L03.115 Cellulitis of right lower limb; Z79.899 Other long term (current) drug therapy; I50.9 Heart failure, unspecified; I25.10 Atherosclerotic heart disease of native coronary artery without angina pectoris; I10 Essential (primary) hypertension; J44.9 Chronic obstructive pulmonary disease, unspecified
CPT/HCPCS: 36415; 73560; 80048; 85025; 85652; 96372; 96374; 99284; J0696; J2270; J2300